=== PATIENT | female | born 1985 | race American Indian/Alaskan Native ===

== ENCOUNTER 2016-10-07 10:34 | Inpatient (IN) | payer MEDICAID, SELFPAY ==
[2016-10-07] MEDS ORDERED: Sodium Chloride 0.9% 10 ML Syringe FLUSH PRN (10:36)
--- NOTE | 2016-10-07 10:36 | EDM.PDOC ---
ED HPI GENERAL MEDICAL PROBLEM - General Chief Complaint: Diabetic Complaint Stated Complaint: IN BY AMBULANCE Time Seen by Provider: 10/07/16 10:35 Source of Information: Reports: Patient, EMS, Old Records, RN, RN Notes Reviewed History Limitations: Reports: No Limitations - History of Present Illness INITIAL COMMENTS - FREE TEXT/NARRATIVE: Arrives from home by ambulance with c/o nausea and vomiting that began after pt drank too much alcohol on Friday, October 04. Denies fever or chills. Pt states she got weak yesterday and didn't get up to take her medications. Pt states she has DM Type 2 since age 17yrs, initially treated with "pills", then switched to insulin several years ago. Onset Date: 10/04/16 Duration: Constant Location: Reports: Abdomen Quality: Reports: Other (cramping) Severity: Severe Improves with: Reports: None Worsens with: Reports: None Associated Symptoms: Reports: No Other Symptoms - Related Data Allergies Allergy/AdvReac Type Severity Reaction Status Date / Time Penicillins Allergy Intermediate Rash Verified 05/26/13 18:19 Home Meds: Home Meds Insulin Aspart [NovoLOG] 30 unit SUBCUT TIDAC 10/07/16 [History] Insulin Detemir [Levemir] 20 unit SUBCUT QAM 10/07/16 [History] Past Medical History Endocrine/Metabolic History: Reports: Diabetes, Type II, IDDM Social & Family History - Family History Family Medical History: Noncontributory - Tobacco Use Years of Tobacco use: 10 Used Tobacco, but Quit: No Second Hand Smoke Exposure: No - Alcohol Use Days Per Week of Alcohol Use: 0 - Recreational Drug Use Recreational Drug Use: No - Living Situation & Occupation Living situation: Reports: with Significant Other Occupation: Unemployed ED ROS GENERAL - Review of Systems Review Of Systems: ROS reveals no pertinent complaints other than HPI. ED EXAM GENERAL NO PERIP PULSE - Physical Exam Exam: See Below Exam Limited By: No Limitations General Appearance: Alert, WD/WN, No Apparent Distress Eye Exam: Bilateral Eye: Normal Inspection Ears: Normal External Exam, Hearing Grossly Normal Nose: Normal Inspection, Normal Mucosa, No Blood Throat/Mouth: Normal Lips, Normal Oropharynx, Normal Voice, No Airway Compromise , Other (dry oral membranes) Head: Atraumatic, Normocephalic Neck: Normal Inspection, Supple, Non-Tender, Full Range of Motion Respiratory/Chest: No Respiratory Distress, Lungs Clear, Normal Breath Sounds, No Accessory Muscle Use, Chest Non-Tender Cardiovascular: Normal Peripheral Pulses, Regular Rate, Rhythm, No Edema, No Gallop, No JVD, No Murmur, No Rub, Tachycardia GI/Abdominal: Normal Bowel Sounds, Soft, Non-Tender, No Distention, No Abnormal Bruit, No Mass, Pelvis Stable (Female) Exam: Deferred Rectal (Female) Exam: Deferred Back Exam: Normal Inspection, Full Range of Motion. No: CVA Tenderness (L), CVA Tenderness (R) Extremities: Normal Inspection, Normal Range of Motion, Non-Tender, Normal Capillary Refill, No Pedal Edema Neurological: Alert, Oriented, CN II-XII Intact, Normal Cognition, Normal Gait, No Motor/Sensory Deficits Psychiatric: Normal Affect, Normal Mood Skin Exam: Warm, Dry, Intact, Normal Color, No Rash EKG INTERPRETATION EKG Date: 10/07/16 Time: 11:34 Rhythm: Other (Sinus tach) Rate (Beats/Min): 109 [place]: Normal P-Wave: Present QRS: Normal ST-T: Other (borderline T-wave abnormalities) QT: Normal Comparison: NA - No Prior EKG Course - Vital Signs Last Recorded V/S: Last Vital Signs Temp 36.6 C 10/07/16 10:45 Pulse 111 H 10/07/16 10:45 Resp 16 10/07/16 10:45 BP 109/81 10/07/16 10:45 Pulse Ox 98 10/07/16 10:45 - Orders/Labs/Meds Orders: Active Orders 24 hr Category Date Time Status Blood Glucose Check, Bedside [] ONETIME Care 10/07/16 10:36 Active EKG 12 Lead [EKG Documentation Completion] [RC] STAT Care 10/07/16 11:24 Active Peripheral IV Care [RC] . DIRECTED Care 10/07/16 10:36 Active Chest 1V Frontal [CR] Stat Exams 10/07/16 11:23 Ordered CULTURE BLOOD [BC] Stat Lab 10/07/16 10:46 Received CULTURE BLOOD [BC] Stat Lab 10/07/16 10:50 Received DRUG SCREEN URINE BIORAD [URCHEM] Stat Lab 10/07/16 10:36 Uncollected HCG QUALITATIVE,URINE [URCHEM] Stat Lab 10/07/16 10:36 Uncollected UA W/MICROSCOPIC [URIN] Stat Lab 10/07/16 10:36 Uncollected Sodium Chloride 0.9% [Saline Flush] Med 10/07/16 10:36 Active 10 ml FLUSH ASDIRECTED PRN Blood Culture x2 Reflex Set [OM.PC] Stat Ot 10/07/16 10:36 Ordered Peripheral IV Insertion Adult [OM.PC] Stat Ot 10/07/16 10:36 Ordered Medication Orders Sodium Chloride (Saline Flush) 10 ml FLUSH ASDIRECTED PRN PRN Reason: Keep Vein Open Labs: Laboratory Tests 10/07/16 10/07/16 10/07/16 Range/Units 10:36 10:46 10:46 WBC 12.7 H (5.0-10.0) 10^3/uL RBC 5.25 (4.2-5.4) 10^6/uL Hgb 14.9 (12.0-16.0) g/dL Hct 44.8 (37.0-47.0) % MCV 85.3 (80-100) fL MCH 28.4 (27.0-34.0) pg MCHC 33.3 (33.0-35.0) g/dL Plt Count 287 (150-450) 10^3/uL Neut % (Auto) 80.0 H (42.2-75.2) % Lymph % (Auto) 13.8 L (20.5-50.1) % [place] % (Auto) 6.1 (2-8) % Eos % (Auto) 0.0 L (1.0-3.0) % Baso % (Auto) 0.1 (0.0-1.0) % ABG pH (7.35-7.45) ABG pCO2 (35-45) mmHg ABG pO2 (70-100) mmHg ABG HCO3 (22-26) mmol/L ABG O2 Saturation (95-100) % ABG Base Excess ((-2)-(+3)) mmol/L O2 Delivery Device Sodium 132 L (135-145) mmol/L Potassium 4.0 (3.6-5.0) mmol/L Chloride 90 L (101-111) mmol/L Carbon Dioxide 15.0 L (21.0-31.0) mmol/L Anion Gap 31.0 BUN 27 H (7-18) mg/dL Creatinine 1.3 (0.6-1.3) mg/dL Est Cr Clr Drug Dosing 54.64 mL/min Estimated GFR (MDRD) 48 BUN/Creatinine Ratio 20.76 Glucose 455 H* (74-105) mg/dL POC Glucose 477 H* (70-105) mg/dl Lactic Acid (0.5-2.2) mmol/L Calcium 9.8 (8.4-10.2) mg/dl Total Bilirubin 1.7 H (0.2-1.0) mg/dL AST 24 (10-42) IU/L ALT 21 (10-60) IU/L Alkaline Phosphatase 128 H (42-121) IU/L Troponin I < 0.02 (0.00-0.02) ng/ml Total Protein 9.2 H (6.7-8.2) g/dl Albumin 4.5 (3.2-5.5) g/dl Globulin 4.7 Albumin/Globulin Ratio 0.96 Amylase 51 (28-100) U/L Lipase 45 (22-51) U/L Ethyl Alcohol < 5 mg/dL Ketones Positive 10/07/16 10/07/16 10/07/16 Range/Units 10:46 11:21 11:40 WBC (5.0-10.0) 10^3/uL RBC (4.2-5.4) 10^6/uL Hgb (12.0-16.0) g/dL Hct (37.0-47.0) % MCV (80-100) fL MCH (27.0-34.0) pg MCHC (33.0-35.0) g/dL Plt Count (150-450) 10^3/uL Neut % (Auto) (42.2-75.2) % Lymph % (Auto) (20.5-50.1) % [place] % (Auto) (2-8) % Eos % (Auto) (1.0-3.0) % Baso % (Auto) (0.0-1.0) % ABG pH 7.36 (7.35-7.45) ABG pCO2 24 L (35-45) mmHg ABG pO2 94 (70-100) mmHg ABG HCO3 13.4 L (22-26) mmol/L ABG O2 Saturation 96 (95-100) % ABG Base Excess -10 L ((-2)-(+3)) mmol/L O2 Delivery Device Room air Sodium (135-145) mmol/L Potassium (3.6-5.0) mmol/L Chloride (101-111) mmol/L Carbon Dioxide (21.0-31.0) mmol/L Anion Gap BUN (7-18) mg/dL Creatinine (0.6-1.3) mg/dL Est Cr Clr Drug Dosing mL/min Estimated GFR (MDRD) BUN/Creatinine Ratio Glucose (74-105) mg/dL POC Glucose 418 H* (70-105) mg/dl Lactic Acid 2.7 H (0.5-2.2) mmol/L Calcium (8.4-10.2) mg/dl Total Bilirubin (0.2-1.0) mg/dL AST (10-42) IU/L ALT (10-60) IU/L Alkaline Phosphatase (42-121) IU/L Troponin I (0.00-0.02) ng/ml Total Protein (6.7-8.2) g/dl Albumin (3.2-5.5) g/dl Globulin Albumin/Globulin Ratio Amylase (28-100) U/L Lipase (22-51) U/L Ethyl Alcohol mg/dL Ketones Meds: Medications Generic Name Dose Route Start Last Admin Trade Name Freq PRN Reason Stop Dose Admin Sodium Chloride 10 ml 10/07/16 10:36 Saline Flush FLUSH ASDIRECTED PRN Keep Vein Open Discontinued Medications Generic Name Dose Route Start Last Admin Trade Name Freq PRN Reason Stop Dose Admin Sodium Chloride 1,000 mls @ 999 mls/hr 10/07/16 10:37 10/07/16 11:02 Normal Saline IV 10/07/16 11:37 999 mls/hr .BOLUS ONE Administration Insulin Human Regular 12 unit 10/07/16 10:58 10/07/16 11:09 Humulin R SUBCUT 10/07/16 10:59 12 units ONETIME ONE Administration Protocol Insulin Human Regular 7 unit 10/07/16 11:25 10/07/16 11:41 Humulin R IV 10/07/16 11:26 7 units ONETIME ONE Administration Protocol Ondansetron HCl 4 mg 10/07/16 10:37 10/07/16 11:02 Zofran IV 10/07/16 10:38 4 mg ONETIME ONE Administration - Radiology Interpretation Free Text/Narrative:: CXR: no acute process. Departure - Departure Time of Disposition: 11:38 (admitted to Dr. Ji) Disposition: Admitted As Inpatient 67 Condition: Critical Clinical Impression: DKA (diabetic ketoacidosis) Qualifiers: Diabetes mellitus type: type 2 Diabetes mellitus complication detail: without coma Qualified Code(s): E13.10 - Other specified diabetes mellitus with ketoacidosis without coma - Discharge Information Forms: ED Department Discharge - My Orders Last 24 Hours: My Active Orders 10/07/16 10:36 Blood Glucose Check, Bedside [RC] ONETIME Peripheral IV Care [RC] . DIRECTED DRUG SCREEN URINE BIORAD [URCHEM] Stat HCG QUALITATIVE,URINE [URCHEM] Stat UA W/MICROSCOPIC [URIN] Stat Sodium Chloride 0.9% [Saline Flush] 10 ml FLUSH ASDIRECTED PRN Blood Culture x2 Reflex Set [OM.PC] Stat Peripheral IV Insertion Adult [OM.PC] Stat 10/07/16 10:46 CULTURE BLOOD [BC] Stat 10/07/16 10:50 CULTURE BLOOD [BC] Stat 10/07/16 11:23 Chest 1V Frontal [CR] Stat 10/07/16 11:24 EKG 12 Lead [EKG Documentation Completion] [RC] STAT - Assessment/Plan Last 24 Hours: My Active Orders 10/07/16 10:36 Blood Glucose Check, Bedside [RC] ONETIME Peripheral IV Care [RC] . DIRECTED DRUG SCREEN URINE BIORAD [URCHEM] Stat HCG QUALITATIVE,URINE [URCHEM] Stat UA W/MICROSCOPIC [URIN] Stat Sodium Chloride 0.9% [Saline Flush] 10 ml FLUSH ASDIRECTED PRN Blood Culture x2 Reflex Set [OM.PC] Stat Peripheral IV Insertion Adult [OM.PC] Stat 10/07/16 10:46 CULTURE BLOOD [BC] Stat 10/07/16 10:50 CULTURE BLOOD [BC] Stat 10/07/16 11:23 Chest 1V Frontal [CR] Stat 10/07/16 11:24 EKG 12 Lead [EKG Documentation Completion] [RC] STAT
[2016-10-07] MEDS ORDERED: Sodium Chloride 0.9% 1,000 ML IV ONE (10:37)
[2016-10-07] MEDS ORDERED: Ondansetron 4 MG/2 ML SDV IV ONE (10:37)
[2016-10-07] MEDS ORDERED: Insulin Regular, Human 100 Units/ML 3 ML Vial SUBCUT ONE (10:58)
[2016-10-07 11:17] LABS: CHLORIDE,CL 90 mmol/L (101-111); SODIUM,NA 132 mmol/L (135-145)
[2016-10-07] MEDS ORDERED: Insulin Regular, Human 100 Units/ML 3 ML Vial IV ONE ×2 (11:25→12:54)
[2016-10-07 11:50] LABS: BASE EXCESS ARTERIAL -10 mmol/L ((-2)-(+3)); BICARBONATE,ARTERIAL 13.4 mmol/L (22-26); O2 DELIVERY DEVICE ROOM AIR; O2 SATURATION ARTERIAL 96 % (95-100); PCO2 ARTERIAL 24 mmHg (35-45); PO2 ARTERIAL 94 mmHg (70-100)
--- NOTE | 2016-10-07 12:15 | CR ---
Clinical history: 31-year-old female diabetic with coughing and vomiting. Interpretation: Negative chest radiograph (upright AP portable). Normal cardiac silhouette without alveolar edema or dependent effusion. No lobar pneumonia, atelectasis or collapse.
[2016-10-07] MEDS ORDERED: Ondansetron 4 MG/2 ML SDV IVPUSH PRN (12:56)
[2016-10-07] MEDS ORDERED: Promethazine 25 MG/ML SDV IM PRN (12:56)
[2016-10-07] MEDS ORDERED: Zolpidem 5 MG Tab PO PRN (12:56)
[2016-10-07] MEDS ORDERED: Acetaminophen 325 MG Tab PO PRN (12:56)
[2016-10-07] MEDS ORDERED: Ondansetron 4 MG Tab.DIS PO PRN (12:56)
[2016-10-07] MEDS ORDERED: Docusate Sodium 100 MG Cap PO PRN (12:56)
[2016-10-07] MEDS ORDERED: NS + KCl 20mEq/L 1,000 ML IV SCH (13:00)
--- NOTE | 2016-10-07 13:40 | PCM.HP ---
H&P History of Present Illness - General Date of Service: 10/07/16 Admit Problem/Dx: Admission Diagnosis/Problem Admission Diagnosis/Problem Ketoacidosis in insulin-dependent diabetes mellitus without coma Source of Information: Patient, Family, Other (er md) - History of Present Illness Initial Comments - Free Text/Narative: The patient is a 31-year-old lady who has a history of diabetes. She was told that she has type 2 diabetes at the age of 17. She has been initially on oral medication but then was switched to insulin. She has a history of prior DKA admission 2 years ago. She usually does not drink at all but on Friday drink lot of hard liquor. Subsequently developed nausea vomiting which has been going on since. She was not checking her blood sugars, was not using an insulin. There is no associated abdominal pain, no diarrhea, no chest pain, no shortness of breath. No urinary burning. - Related Data Allergies/Adverse Reactions: Allergies Allergy/AdvReac Type Severity Reaction Status Date / Time No Known Allergies Allergy Verified 10/07/16 13:40 Home Medications: Home Meds Insulin Aspart [NovoLOG] 30 unit SUBCUT TIDAC 10/07/16 [History] Insulin Detemir [Levemir] 20 unit SUBCUT QAM 10/07/16 [History] Past Medical History HEENT History: Reports: Impaired Vision Endocrine/Metabolic History: Reports: Diabetes, Type II, IDDM - Past Surgical History GI Surgical History: Reports: Appendectomy Female Surgical History: Reports: Section Social & Family History - Family History Family Medical History: Noncontributory - Tobacco Use Smoking Status *Q: Never Smoker Years of Tobacco use: 10 Used Tobacco, but Quit: No Second Hand Smoke Exposure: No - Caffeine Use Caffeine Use: Reports: Coffee, Soda - Alcohol Use Days Per Week of Alcohol Use: 0 - Recreational Drug Use Recreational Drug Use: No - Living Situation & Occupation Living situation: Reports: with Significant Other Occupation: Unemployed H&P Review of Systems - Review of Systems: Review Of Systems: See Below General: Reports: Malaise, Weakness, Fatigue. Denies: Fever, Chills Pulmonary: Denies: Shortness of Breath, Wheezing Cardiovascular: Denies: Chest Pain, Edema Gastrointestinal: Reports: Nausea, Vomiting. Denies: Abdominal Pain Psychiatric: Denies: Confusion Exam - Exam Exam: See Below - Vital Signs Vital Signs: Last Vital Signs Temp 36.6 C 10/07/16 10:45 Pulse 111 H 10/07/16 10:45 Resp 16 10/07/16 10:45 BP 109/81 10/07/16 10:45 Pulse Ox 98 10/07/16 10:45 Weight: 70.307 kg - Exam General: Alert, Oriented Neck: Supple Lungs: Clear to Auscultation, Normal Respiratory Effort Cardiovascular: Regular Rate, Regular Rhythm GI/Abdominal Exam: Normal Bowel Sounds, Soft, Non-Tender Extremities: No Pedal Edema - Patient Data Lab Results Last 24 hrs: Laboratory Results - last 24 hr 10/07/16 10/07/16 10/07/16 Range/Units 12:59 13:20 13:20 POC Glucose 302 H (70-105) mg/dl Urine HCG, Qual Negative Urine Opiates Screen Negative (NEGATIVE) Ur Oxycodone Screen Negative (NEGATIVE) Urine Methadone Screen Negative (NEGATIVE) Ur Barbiturates Screen Negative (NEGATIVE) U Tricyclic Antidepress Negative (NEGATIVE) Ur Phencyclidine Scrn Negative (NEGATIVE) Ur Amphetamine Screen Negative (NEGATIVE) U Methamphetamines Scrn Negative (NEGATIVE) Urine MDMA Screen Negative (NEGATIVE) U Benzodiazepines Scrn Negative (NEGATIVE) Urine Cocaine Screen Negative (NEGATIVE) U Marijuana (THC) Screen Positive H (NEGATIVE) Result Diagrams: 10/07/16 10:46 10/07/16 10:46 EKG INTERPRETATION EKG Date: 10/07/16 Rhythm: NSR *Q Meaningful Use (ADM) - VTE *Q VTE Criteria *Q: - Stroke *Q Stroke Criteria *Q: - AMI *Q AMI Criteria *Q: - Problem List (1) DKA (diabetic ketoacidosis) SNOMED Code(s): 211930637, [id number] ICD Code: E13.10 - OTH DIABETES MELLITUS WITH KETOACIDOSIS WITHOUT COMA Status: Acute Current Visit: Yes Qualifiers: Diabetes mellitus type: type 2 Diabetes mellitus complication detail: without coma Qualified Code(s): E13.10 - Other specified diabetes mellitus with ketoacidosis without coma Problem List Initiated/Reviewed/Updated: Yes Orders Last 24hrs: Active Orders 24 hr Category Date Time Status Multivitamins,Therapeutic [Thera] Med 10/07/16 21:00 Ordered 1 each PO BEDTIME NS + KCl 20mEq/L [Normal Saline with 20 mEq KCl] 1,000 Med 10/07/16 13:00 Active ml IV ASDIRECTED Medication Orders Acetaminophen (Tylenol) 650 mg PO Q4H PRN PRN Reason: Pain (Mild 1-3)/fever Docusate Sodium (Colace) 100 mg PO BID PRN PRN Reason: Constipation Heparin Sodium (Porcine) (Heparin Sodium) 5,000 units SUBCUT Q8HR DARI Potassium Chloride/Sodium Chloride (Normal Saline With 20 Meq Kcl) 1,000 mls @ 150 mls/hr IV ASDIRECTED DARI Multivitamins (Thera) 1 each PO BEDTIME DARI Ondansetron HCl (Zofran Odt) 4 mg PO Q4H PRN PRN Reason: nausea, able to take PO Ondansetron HCl (Zofran) 4 mg IVPUSH Q6H PRN PRN Reason: Nausea/Vomiting Pantoprazole Sodium (Protonix Iv) 40 mg IVPUSH DAILY [facility] Promethazine HCl (Phenergan) 6.25 mg IM Q6H PRN PRN Reason: Nausea/Vomiting Sodium Chloride (Saline Flush) 10 ml FLUSH ASDIRECTED PRN PRN Reason: Keep Vein Open Zolpidem Tartrate (Ambien) 5 mg PO BEDTIME PRN PRN Reason: Sleep Assessment/Plan Comment:: Nausea vomiting likely due to alcohol related GASTRITIS and DKA Will hydrate the patient, use antiemetics as needed Start proton pump inhibitor DKA The patient was not using insulin, had nausea vomiting Will give the patient IV fluids Insulin drip Follow electrolytes and replace them as needed Diabetes Likely type 1 diabetes Discussed importance of management and baseline insulin need Leukocytosis Likely reactive due to DKA DVT prophylaxis will be with subcutaneous heparin Discussed with the ER physician
[2016-10-07] MEDS: Heparin Sodium 5,000 Units/ML Vial SUBCUT SCH ×2 (14:46→21:30)
[2016-10-07] MEDS ORDERED: Insulin Regular, Human 100 Units/ML 3 ML Vial IV SCH (15:45)
[2016-10-07] MEDS: Dextrose 5%-0.9% NaCl with KCl 1,000 ML IV SCH ×2 (16:26→23:23)
[2016-10-07 17:23] LABS: CHLORIDE,CL 99 mmol/L (101-111); SODIUM,NA 134 mmol/L (135-145)
[2016-10-07] MEDS: Phosphorus #1 250 MG Tab PO SCH ×2 (18:44→21:29)
[2016-10-07] MEDS: Multivitamins,Therapeutic Tab PO SCH (21:28)
[2016-10-08] MEDS: Phosphorus #1 250 MG Tab PO SCH ×5 (02:38→22:44)
[2016-10-08] MEDS: Heparin Sodium 5,000 Units/ML Vial SUBCUT SCH ×3 (06:14→22:45)
[2016-10-08 06:50] LABS: CHLORIDE,CL 106 mmol/L (101-111); SODIUM,NA 139 mmol/L (135-145)
[2016-10-08] MEDS: Pantoprazole 40 MG Vial IVPUSH SCH (09:53)
[2016-10-08] MEDS ORDERED: Insulin NPH/Insulin Regular,Human 70-30 100 Units/ML 10 ML Vial SUBCUT ONE (11:11)
--- NOTE | 2016-10-08 11:49 | PCM.PN ---
- General Info Date of Service: 10/08/16 Admission Dx/Problem (Free Text): Admission Diagnosis/Problem Admission Diagnosis/Problem Ketoacidosis in insulin-dependent diabetes mellitus without coma Subjective Update: feeling better only mild nausea no fever no diarrhea mild diffuse abdominal pain Functional Status: Reports: Pain Controlled - Review of Systems General: Reports: Malaise. Denies: Fever Pulmonary: Denies: Shortness of Breath Cardiovascular: Denies: Chest Pain Gastrointestinal: Reports: Abdominal Pain (mild, diffuse). Denies: Diarrhea, Nausea, Vomiting - Patient Data Vitals - Most Recent: Last Vital Signs Temp 36.6 C 10/08/16 11:00 Pulse 77 10/08/16 11:00 Resp 20 10/08/16 11:00 BP 101/74 10/08/16 11:00 Pulse Ox 100 10/08/16 11:00 Weight - Most Recent: 70.307 kg I&O - Last 24 Hours: Intake & Output 10/07/16 10/08/16 10/08/16 22:59 06:59 14:59 Intake Total 340 2890 Output Total 450 Balance 340 2440 Lab Results Last 24 Hours: Laboratory Results - last 24 hr 10/07/16 10/07/16 10/07/16 Range/Units 12:59 13:20 13:20 WBC (5.0-10.0) 10^3/uL RBC (4.2-5.4) 10^6/uL Hgb (12.0-16.0) g/dL Hct (37.0-47.0) % MCV (80-100) fL MCH (27.0-34.0) pg MCHC (33.0-35.0) g/dL Plt Count (150-450) 10^3/uL Neut % (Auto) (42.2-75.2) % Lymph % (Auto) (20.5-50.1) % [place] % (Auto) (2-8) % Eos % (Auto) (1.0-3.0) % Baso % (Auto) (0.0-1.0) % Sodium (135-145) mmol/L Potassium (3.6-5.0) mmol/L Chloride (101-111) mmol/L Carbon Dioxide (21.0-31.0) mmol/L Anion Gap BUN (7-18) mg/dL Creatinine (0.6-1.3) mg/dL Est Cr Clr Drug Dosing mL/min Estimated GFR (MDRD) Glucose (74-105) mg/dL POC Glucose 302 H (70-105) mg/dl Calcium (8.4-10.2) mg/dl Phosphorus (2.5-4.6) mg/dL Magnesium (1.8-2.5) mg/dL Urine Color (YELLOW) Urine Appearance (CLEAR) Urine pH (5.0-9.0) Ur Specific [place] (1.005-1.030) Urine Protein (NEGATIVE) Urine Glucose (UA) (NEGATIVE) Urine Ketones (NEGATIVE) Urine Occult Blood (NEGATIVE) Urine Nitrite (NEGATIVE) Urine Bilirubin (NEGATIVE) Urine Urobilinogen (0.2-1.0) mg/dL Ur Leukocyte Esterase (NEGATIVE) Urine RBC /HPF Urine WBC (0-5/HPF) /HPF Ur Epithelial Cells /HPF Urine Bacteria (0-FEW/HPF) /HPF Hyaline Casts /LPF Fine Granular Casts (0/LPF) /LPF Urine Mucus /LPF Urine HCG, Qual Negative Urine Opiates Screen Negative (NEGATIVE) Ur Oxycodone Screen Negative (NEGATIVE) Urine Methadone Screen Negative (NEGATIVE) Ur Barbiturates Screen Negative (NEGATIVE) U Tricyclic Antidepress Negative (NEGATIVE) Ur Phencyclidine Scrn Negative (NEGATIVE) Ur Amphetamine Screen Negative (NEGATIVE) U Methamphetamines Scrn Negative (NEGATIVE) Urine MDMA Screen Negative (NEGATIVE) U Benzodiazepines Scrn Negative (NEGATIVE) Urine Cocaine Screen Negative (NEGATIVE) U Marijuana (THC) Screen Positive H (NEGATIVE) 10/07/16 10/07/16 10/07/16 Range/Units 13:20 13:49 15:08 WBC (5.0-10.0) 10^3/uL RBC (4.2-5.4) 10^6/uL Hgb (12.0-16.0) g/dL Hct (37.0-47.0) % MCV (80-100) fL MCH (27.0-34.0) pg MCHC (33.0-35.0) g/dL Plt Count (150-450) 10^3/uL Neut % (Auto) (42.2-75.2) % Lymph % (Auto) (20.5-50.1) % [place] % (Auto) (2-8) % Eos % (Auto) (1.0-3.0) % Baso % (Auto) (0.0-1.0) % Sodium (135-145) mmol/L Potassium (3.6-5.0) mmol/L Chloride (101-111) mmol/L Carbon Dioxide (21.0-31.0) mmol/L Anion Gap BUN (7-18) mg/dL Creatinine (0.6-1.3) mg/dL Est Cr Clr Drug Dosing mL/min Estimated GFR (MDRD) Glucose (74-105) mg/dL POC Glucose 277 H 253 H (70-105) mg/dl Calcium (8.4-10.2) mg/dl Phosphorus (2.5-4.6) mg/dL Magnesium (1.8-2.5) mg/dL Urine Color Yellow (YELLOW) Urine Appearance Slightly cloudy (CLEAR) Urine pH 5.5 (5.0-9.0) Ur Specific [place] 1.020 (1.005-1.030) Urine Protein 100 H (NEGATIVE) Urine Glucose (UA) 500 H (NEGATIVE) Urine Ketones >=160 H (NEGATIVE) Urine Occult Blood Small H (NEGATIVE) Urine Nitrite Negative (NEGATIVE) Urine Bilirubin Moderate H (NEGATIVE) Urine Urobilinogen 0.2 (0.2-1.0) mg/dL Ur Leukocyte Esterase Negative (NEGATIVE) Urine RBC 5-10 H /HPF Urine WBC 0-5 (0-5/HPF) /HPF Ur Epithelial Cells Many H /HPF Urine Bacteria Moderate H (0-FEW/HPF) /HPF Hyaline Casts See note /LPF Fine Granular Casts See note (0/LPF) /LPF Urine Mucus Few H /LPF Urine HCG, Qual Urine Opiates Screen (NEGATIVE) Ur Oxycodone Screen (NEGATIVE) Urine Methadone Screen (NEGATIVE) Ur Barbiturates Screen (NEGATIVE) U Tricyclic Antidepress (NEGATIVE) Ur Phencyclidine Scrn (NEGATIVE) Ur Amphetamine Screen (NEGATIVE) U Methamphetamines Scrn (NEGATIVE) Urine MDMA Screen (NEGATIVE) U Benzodiazepines Scrn (NEGATIVE) Urine Cocaine Screen (NEGATIVE) U Marijuana (THC) Screen (NEGATIVE) 10/07/16 10/07/16 10/07/16 Range/Units 16:07 16:25 17:03 WBC (5.0-10.0) 10^3/uL RBC (4.2-5.4) 10^6/uL Hgb (12.0-16.0) g/dL Hct (37.0-47.0) % MCV (80-100) fL MCH (27.0-34.0) pg MCHC (33.0-35.0) g/dL Plt Count (150-450) 10^3/uL Neut % (Auto) (42.2-75.2) % Lymph % (Auto) (20.5-50.1) % [place] % (Auto) (2-8) % Eos % (Auto) (1.0-3.0) % Baso % (Auto) (0.0-1.0) % Sodium 134 L (135-145) mmol/L Potassium 3.6 (3.6-5.0) mmol/L Chloride 99 L (101-111) mmol/L Carbon Dioxide 22.0 (21.0-31.0) mmol/L Anion Gap 16.6 BUN 28 H (7-18) mg/dL Creatinine 0.8 (0.6-1.3) mg/dL Est Cr Clr Drug Dosing 88.79 mL/min Estimated GFR (MDRD) > 60 Glucose 270 H (74-105) mg/dL POC Glucose 232 H 224 H (70-105) mg/dl Calcium 8.6 (8.4-10.2) mg/dl Phosphorus 1.5 L (2.5-4.6) mg/dL Magnesium 1.7 L (1.8-2.5) mg/dL Urine Color (YELLOW) Urine Appearance (CLEAR) Urine pH (5.0-9.0) Ur Specific [place] (1.005-1.030) Urine Protein (NEGATIVE) Urine Glucose (UA) (NEGATIVE) Urine Ketones (NEGATIVE) Urine Occult Blood (NEGATIVE) Urine Nitrite (NEGATIVE) Urine Bilirubin (NEGATIVE) Urine Urobilinogen (0.2-1.0) mg/dL Ur Leukocyte Esterase (NEGATIVE) Urine RBC /HPF Urine WBC (0-5/HPF) /HPF Ur Epithelial Cells /HPF Urine Bacteria (0-FEW/HPF) /HPF Hyaline Casts /LPF Fine Granular Casts (0/LPF) /LPF Urine Mucus /LPF Urine HCG, Qual Urine Opiates Screen (NEGATIVE) Ur Oxycodone Screen (NEGATIVE) Urine Methadone Screen (NEGATIVE) Ur Barbiturates Screen (NEGATIVE) U Tricyclic Antidepress (NEGATIVE) Ur Phencyclidine Scrn (NEGATIVE) Ur Amphetamine Screen (NEGATIVE) U Methamphetamines Scrn (NEGATIVE) Urine MDMA Screen (NEGATIVE) U Benzodiazepines Scrn (NEGATIVE) Urine Cocaine Screen (NEGATIVE) U Marijuana (THC) Screen (NEGATIVE) 10/07/16 10/07/16 10/07/16 Range/Units 17:29 18:35 19:45 WBC (5.0-10.0) 10^3/uL RBC (4.2-5.4) 10^6/uL Hgb (12.0-16.0) g/dL Hct (37.0-47.0) % MCV (80-100) fL MCH (27.0-34.0) pg MCHC (33.0-35.0) g/dL Plt Count (150-450) 10^3/uL Neut % (Auto) (42.2-75.2) % Lymph % (Auto) (20.5-50.1) % [place] % (Auto) (2-8) % Eos % (Auto) (1.0-3.0) % Baso % (Auto) (0.0-1.0) % Sodium (135-145) mmol/L Potassium (3.6-5.0) mmol/L Chloride (101-111) mmol/L Carbon Dioxide (21.0-31.0) mmol/L Anion Gap BUN (7-18) mg/dL Creatinine (0.6-1.3) mg/dL Est Cr Clr Drug Dosing mL/min Estimated GFR (MDRD) Glucose (74-105) mg/dL POC Glucose 244 H 266 H 288 H (70-105) mg/dl Calcium (8.4-10.2) mg/dl Phosphorus (2.5-4.6) mg/dL Magnesium (1.8-2.5) mg/dL Urine Color (YELLOW) Urine Appearance (CLEAR) Urine pH (5.0-9.0) Ur Specific [place] (1.005-1.030) Urine Protein (NEGATIVE) Urine Glucose (UA) (NEGATIVE) Urine Ketones (NEGATIVE) Urine Occult Blood (NEGATIVE) Urine Nitrite (NEGATIVE) Urine Bilirubin (NEGATIVE) Urine Urobilinogen (0.2-1.0) mg/dL Ur Leukocyte Esterase (NEGATIVE) Urine RBC /HPF Urine WBC (0-5/HPF) /HPF Ur Epithelial Cells /HPF Urine Bacteria (0-FEW/HPF) /HPF Hyaline Casts /LPF Fine Granular Casts (0/LPF) /LPF Urine Mucus /LPF Urine HCG, Qual Urine Opiates Screen (NEGATIVE) Ur Oxycodone Screen (NEGATIVE) Urine Methadone Screen (NEGATIVE) Ur Barbiturates Screen (NEGATIVE) U Tricyclic Antidepress (NEGATIVE) Ur Phencyclidine Scrn (NEGATIVE) Ur Amphetamine Screen (NEGATIVE) U Methamphetamines Scrn (NEGATIVE) Urine MDMA Screen (NEGATIVE) U Benzodiazepines Scrn (NEGATIVE) Urine Cocaine Screen (NEGATIVE) U Marijuana (THC) Screen (NEGATIVE) 10/07/16 10/07/16 10/07/16 Range/Units 20:42 21:33 22:49 WBC (5.0-10.0) 10^3/uL RBC (4.2-5.4) 10^6/uL Hgb (12.0-16.0) g/dL Hct (37.0-47.0) % MCV (80-100) fL MCH (27.0-34.0) pg MCHC (33.0-35.0) g/dL Plt Count (150-450) 10^3/uL Neut % (Auto) (42.2-75.2) % Lymph % (Auto) (20.5-50.1) % [place] % (Auto) (2-8) % Eos % (Auto) (1.0-3.0) % Baso % (Auto) (0.0-1.0) % Sodium (135-145) mmol/L Potassium (3.6-5.0) mmol/L Chloride (101-111) mmol/L Carbon Dioxide (21.0-31.0) mmol/L Anion Gap BUN (7-18) mg/dL Creatinine (0.6-1.3) mg/dL Est Cr Clr Drug Dosing mL/min Estimated GFR (MDRD) Glucose (74-105) mg/dL POC Glucose 307 H 262 H 251 H (70-105) mg/dl Calcium (8.4-10.2) mg/dl Phosphorus (2.5-4.6) mg/dL Magnesium (1.8-2.5) mg/dL Urine Color (YELLOW) Urine Appearance (CLEAR) Urine pH (5.0-9.0) Ur Specific [place] (1.005-1.030) Urine Protein (NEGATIVE) Urine Glucose (UA) (NEGATIVE) Urine Ketones (NEGATIVE) Urine Occult Blood (NEGATIVE) Urine Nitrite (NEGATIVE) Urine Bilirubin (NEGATIVE) Urine Urobilinogen (0.2-1.0) mg/dL Ur Leukocyte Esterase (NEGATIVE) Urine RBC /HPF Urine WBC (0-5/HPF) /HPF Ur Epithelial Cells /HPF Urine Bacteria (0-FEW/HPF) /HPF Hyaline Casts /LPF Fine Granular Casts (0/LPF) /LPF Urine Mucus /LPF Urine HCG, Qual Urine Opiates Screen (NEGATIVE) Ur Oxycodone Screen (NEGATIVE) Urine Methadone Screen (NEGATIVE) Ur Barbiturates Screen (NEGATIVE) U Tricyclic Antidepress (NEGATIVE) Ur Phencyclidine Scrn (NEGATIVE) Ur Amphetamine Screen (NEGATIVE) U Methamphetamines Scrn (NEGATIVE) Urine MDMA Screen (NEGATIVE) U Benzodiazepines Scrn (NEGATIVE) Urine Cocaine Screen (NEGATIVE) U Marijuana (THC) Screen (NEGATIVE) 10/07/16 10/08/16 10/08/16 Range/Units 23:33 00:28 01:32 WBC (5.0-10.0) 10^3/uL RBC (4.2-5.4) 10^6/uL Hgb (12.0-16.0) g/dL Hct (37.0-47.0) % MCV (80-100) fL MCH (27.0-34.0) pg MCHC (33.0-35.0) g/dL Plt Count (150-450) 10^3/uL Neut % (Auto) (42.2-75.2) % Lymph % (Auto) (20.5-50.1) % [place] % (Auto) (2-8) % Eos % (Auto) (1.0-3.0) % Baso % (Auto) (0.0-1.0) % Sodium (135-145) mmol/L Potassium (3.6-5.0) mmol/L Chloride (101-111) mmol/L Carbon Dioxide (21.0-31.0) mmol/L Anion Gap BUN (7-18) mg/dL Creatinine (0.6-1.3) mg/dL Est Cr Clr Drug Dosing mL/min Estimated GFR (MDRD) Glucose (74-105) mg/dL POC Glucose 243 H 261 H 244 H (70-105) mg/dl Calcium (8.4-10.2) mg/dl Phosphorus (2.5-4.6) mg/dL Magnesium (1.8-2.5) mg/dL Urine Color (YELLOW) Urine Appearance (CLEAR) Urine pH (5.0-9.0) Ur Specific [place] (1.005-1.030) Urine Protein (NEGATIVE) Urine Glucose (UA) (NEGATIVE) Urine Ketones (NEGATIVE) Urine Occult Blood (NEGATIVE) Urine Nitrite (NEGATIVE) Urine Bilirubin (NEGATIVE) Urine Urobilinogen (0.2-1.0) mg/dL Ur Leukocyte Esterase (NEGATIVE) Urine RBC /HPF Urine WBC (0-5/HPF) /HPF Ur Epithelial Cells /HPF Urine Bacteria (0-FEW/HPF) /HPF Hyaline Casts /LPF Fine Granular Casts (0/LPF) /LPF Urine Mucus /LPF Urine HCG, Qual Urine Opiates Screen (NEGATIVE) Ur Oxycodone Screen (NEGATIVE) Urine Methadone Screen (NEGATIVE) Ur Barbiturates Screen (NEGATIVE) U Tricyclic Antidepress (NEGATIVE) Ur Phencyclidine Scrn (NEGATIVE) Ur Amphetamine Screen (NEGATIVE) U Methamphetamines Scrn (NEGATIVE) Urine MDMA Screen (NEGATIVE) U Benzodiazepines Scrn (NEGATIVE) Urine Cocaine Screen (NEGATIVE) U Marijuana (THC) Screen (NEGATIVE) 10/08/16 10/08/16 10/08/16 Range/Units 02:31 03:36 04:38 WBC (5.0-10.0) 10^3/uL RBC (4.2-5.4) 10^6/uL Hgb (12.0-16.0) g/dL Hct (37.0-47.0) % MCV (80-100) fL MCH (27.0-34.0) pg MCHC (33.0-35.0) g/dL Plt Count (150-450) 10^3/uL Neut % (Auto) (42.2-75.2) % Lymph % (Auto) (20.5-50.1) % [place] % (Auto) (2-8) % Eos % (Auto) (1.0-3.0) % Baso % (Auto) (0.0-1.0) % Sodium (135-145) mmol/L Potassium (3.6-5.0) mmol/L Chloride (101-111) mmol/L Carbon Dioxide (21.0-31.0) mmol/L Anion Gap BUN (7-18) mg/dL Creatinine (0.6-1.3) mg/dL Est Cr Clr Drug Dosing mL/min Estimated GFR (MDRD) Glucose (74-105) mg/dL POC Glucose 241 H 238 H 240 H (70-105) mg/dl Calcium (8.4-10.2) mg/dl Phosphorus (2.5-4.6) mg/dL Magnesium (1.8-2.5) mg/dL Urine Color (YELLOW) Urine Appearance (CLEAR) Urine pH (5.0-9.0) Ur Specific [place] (1.005-1.030) Urine Protein (NEGATIVE) Urine Glucose (UA) (NEGATIVE) Urine Ketones (NEGATIVE) Urine Occult Blood (NEGATIVE) Urine Nitrite (NEGATIVE) Urine Bilirubin (NEGATIVE) Urine Urobilinogen (0.2-1.0) mg/dL Ur Leukocyte Esterase (NEGATIVE) Urine RBC /HPF Urine WBC (0-5/HPF) /HPF Ur Epithelial Cells /HPF Urine Bacteria (0-FEW/HPF) /HPF Hyaline Casts /LPF Fine Granular Casts (0/LPF) /LPF Urine Mucus /LPF Urine HCG, Qual Urine Opiates Screen (NEGATIVE) Ur Oxycodone Screen (NEGATIVE) Urine Methadone Screen (NEGATIVE) Ur Barbiturates Screen (NEGATIVE) U Tricyclic Antidepress (NEGATIVE) Ur Phencyclidine Scrn (NEGATIVE) Ur Amphetamine Screen (NEGATIVE) U Methamphetamines Scrn (NEGATIVE) Urine MDMA Screen (NEGATIVE) U Benzodiazepines Scrn (NEGATIVE) Urine Cocaine Screen (NEGATIVE) U Marijuana (THC) Screen (NEGATIVE) 10/08/16 10/08/16 10/08/16 Range/Units 05:29 06:20 06:20 WBC 8.0 (5.0-10.0) 10^3/uL RBC 4.54 (4.2-5.4) 10^6/uL Hgb 13.0 (12.0-16.0) g/dL Hct 39.3 (37.0-47.0) % MCV 86.6 (80-100) fL MCH 28.6 (27.0-34.0) pg MCHC 33.1 (33.0-35.0) g/dL Plt Count 247 (150-450) 10^3/uL Neut % (Auto) 53.5 (42.2-75.2) % Lymph % (Auto) 39.2 (20.5-50.1) % [place] % (Auto) 7.1 (2-8) % Eos % (Auto) 0.1 L (1.0-3.0) % Baso % (Auto) 0.1 (0.0-1.0) % Sodium 139 (135-145) mmol/L Potassium 3.8 (3.6-5.0) mmol/L Chloride 106 (101-111) mmol/L Carbon Dioxide 24.0 (21.0-31.0) mmol/L Anion Gap 12.8 BUN 18 (7-18) mg/dL Creatinine 0.6 (0.6-1.3) mg/dL Est Cr Clr Drug Dosing 118.39 mL/min Estimated GFR (MDRD) > 60 Glucose 243 H (74-105) mg/dL POC Glucose 243 H (70-105) mg/dl Calcium 8.6 (8.4-10.2) mg/dl Phosphorus 1.7 L (2.5-4.6) mg/dL Magnesium 2.0 (1.8-2.5) mg/dL Urine Color (YELLOW) Urine Appearance (CLEAR) Urine pH (5.0-9.0) Ur Specific [place] (1.005-1.030) Urine Protein (NEGATIVE) Urine Glucose (UA) (NEGATIVE) Urine Ketones (NEGATIVE) Urine Occult Blood (NEGATIVE) Urine Nitrite (NEGATIVE) Urine Bilirubin (NEGATIVE) Urine Urobilinogen (0.2-1.0) mg/dL Ur Leukocyte Esterase (NEGATIVE) Urine RBC /HPF Urine WBC (0-5/HPF) /HPF Ur Epithelial Cells /HPF Urine Bacteria (0-FEW/HPF) /HPF Hyaline Casts /LPF Fine Granular Casts (0/LPF) /LPF Urine Mucus /LPF Urine HCG, Qual Urine Opiates Screen (NEGATIVE) Ur Oxycodone Screen (NEGATIVE) Urine Methadone Screen (NEGATIVE) Ur Barbiturates Screen (NEGATIVE) U Tricyclic Antidepress (NEGATIVE) Ur Phencyclidine Scrn (NEGATIVE) Ur Amphetamine Screen (NEGATIVE) U Methamphetamines Scrn (NEGATIVE) Urine MDMA Screen (NEGATIVE) U Benzodiazepines Scrn (NEGATIVE) Urine Cocaine Screen (NEGATIVE) U Marijuana (THC) Screen (NEGATIVE) 10/08/16 10/08/16 10/08/16 Range/Units 06:41 07:45 09:09 WBC (5.0-10.0) 10^3/uL RBC (4.2-5.4) 10^6/uL Hgb (12.0-16.0) g/dL Hct (37.0-47.0) % MCV (80-100) fL MCH (27.0-34.0) pg MCHC (33.0-35.0) g/dL Plt Count (150-450) 10^3/uL Neut % (Auto) (42.2-75.2) % Lymph % (Auto) (20.5-50.1) % [place] % (Auto) (2-8) % Eos % (Auto) (1.0-3.0) % Baso % (Auto) (0.0-1.0) % Sodium (135-145) mmol/L Potassium (3.6-5.0) mmol/L Chloride (101-111) mmol/L Carbon Dioxide (21.0-31.0) mmol/L Anion Gap BUN (7-18) mg/dL Creatinine (0.6-1.3) mg/dL Est Cr Clr Drug Dosing mL/min Estimated GFR (MDRD) Glucose (74-105) mg/dL POC Glucose 205 H 196 H 262 H (70-105) mg/dl Calcium (8.4-10.2) mg/dl Phosphorus (2.5-4.6) mg/dL Magnesium (1.8-2.5) mg/dL Urine Color (YELLOW) Urine Appearance (CLEAR) Urine pH (5.0-9.0) Ur Specific [place] (1.005-1.030) Urine Protein (NEGATIVE) Urine Glucose (UA) (NEGATIVE) Urine Ketones (NEGATIVE) Urine Occult Blood (NEGATIVE) Urine Nitrite (NEGATIVE) Urine Bilirubin (NEGATIVE) Urine Urobilinogen (0.2-1.0) mg/dL Ur Leukocyte Esterase (NEGATIVE) Urine RBC /HPF Urine WBC (0-5/HPF) /HPF Ur Epithelial Cells /HPF Urine Bacteria (0-FEW/HPF) /HPF Hyaline Casts /LPF Fine Granular Casts (0/LPF) /LPF Urine Mucus /LPF Urine HCG, Qual Urine Opiates Screen (NEGATIVE) Ur Oxycodone Screen (NEGATIVE) Urine Methadone Screen (NEGATIVE) Ur Barbiturates Screen (NEGATIVE) U Tricyclic Antidepress (NEGATIVE) Ur Phencyclidine Scrn (NEGATIVE) Ur Amphetamine Screen (NEGATIVE) U Methamphetamines Scrn (NEGATIVE) Urine MDMA Screen (NEGATIVE) U Benzodiazepines Scrn (NEGATIVE) Urine Cocaine Screen (NEGATIVE) U Marijuana (THC) Screen (NEGATIVE) 10/08/16 10/08/16 Range/Units 10:09 11:05 WBC (5.0-10.0) 10^3/uL RBC (4.2-5.4) 10^6/uL Hgb (12.0-16.0) g/dL Hct (37.0-47.0) % MCV (80-100) fL MCH (27.0-34.0) pg MCHC (33.0-35.0) g/dL Plt Count (150-450) 10^3/uL Neut % (Auto) (42.2-75.2) % Lymph % (Auto) (20.5-50.1) % [place] % (Auto) (2-8) % Eos % (Auto) (1.0-3.0) % Baso % (Auto) (0.0-1.0) % Sodium (135-145) mmol/L Potassium (3.6-5.0) mmol/L Chloride (101-111) mmol/L Carbon Dioxide (21.0-31.0) mmol/L Anion Gap BUN (7-18) mg/dL Creatinine (0.6-1.3) mg/dL Est Cr Clr Drug Dosing mL/min Estimated GFR (MDRD) Glucose (74-105) mg/dL POC Glucose 347 H 274 H (70-105) mg/dl Calcium (8.4-10.2) mg/dl Phosphorus (2.5-4.6) mg/dL Magnesium (1.8-2.5) mg/dL Urine Color (YELLOW) Urine Appearance (CLEAR) Urine pH (5.0-9.0) Ur Specific [place] (1.005-1.030) Urine Protein (NEGATIVE) Urine Glucose (UA) (NEGATIVE) Urine Ketones (NEGATIVE) Urine Occult Blood (NEGATIVE) Urine Nitrite (NEGATIVE) Urine Bilirubin (NEGATIVE) Urine Urobilinogen (0.2-1.0) mg/dL Ur Leukocyte Esterase (NEGATIVE) Urine RBC /HPF Urine WBC (0-5/HPF) /HPF Ur Epithelial Cells /HPF Urine Bacteria (0-FEW/HPF) /HPF Hyaline Casts /LPF Fine Granular Casts (0/LPF) /LPF Urine Mucus /LPF Urine HCG, Qual Urine Opiates Screen (NEGATIVE) Ur Oxycodone Screen (NEGATIVE) Urine Methadone Screen (NEGATIVE) Ur Barbiturates Screen (NEGATIVE) U Tricyclic Antidepress (NEGATIVE) Ur Phencyclidine Scrn (NEGATIVE) Ur Amphetamine Screen (NEGATIVE) U Methamphetamines Scrn (NEGATIVE) Urine MDMA Screen (NEGATIVE) U Benzodiazepines Scrn (NEGATIVE) Urine Cocaine Screen (NEGATIVE) U Marijuana (THC) Screen (NEGATIVE) Med Orders - Current: Current Medications Acetaminophen (Tylenol) 650 mg PO Q4H PRN PRN Reason: Pain (Mild 1-3)/fever Docusate Sodium (Colace) 100 mg PO BID PRN PRN Reason: Constipation Heparin Sodium (Porcine) (Heparin Sodium) 5,000 units SUBCUT Q8HR [facility] Last Admin: 10/08/16 06:14 Dose: 5,000 units Insulin Aspart (Novolog) 0 unit SUBCUT TIDAC [facility] PRN Reason: Protocol Insulin Detemir (Levemir) 30 unit SUBCUT .BEDTIME [facility] Insulin Human Isoph/Insulin Regular (Novolin 70-30) 15 unit SUBCUT ONETIME ONE Stop: 10/08/16 11:12 Multivitamins (Thera) 1 each PO BEDTIME [facility] Last Admin: 10/07/16 21:28 Dose: 1 each Ondansetron HCl (Zofran Odt) 4 mg PO Q4H PRN PRN Reason: nausea, able to take PO Ondansetron HCl (Zofran) 4 mg IVPUSH Q6H PRN PRN Reason: Nausea/Vomiting Pantoprazole Sodium (Protonix Iv) 40 mg IVPUSH DAILY [facility] Last Admin: 10/08/16 09:53 Dose: 40 mg Promethazine HCl (Phenergan) 6.25 mg IM Q6H PRN PRN Reason: Nausea/Vomiting Sodium Chloride (Saline Flush) 10 ml FLUSH ASDIRECTED PRN PRN Reason: Keep Vein Open Zolpidem Tartrate (Ambien) 5 mg PO BEDTIME PRN PRN Reason: Sleep Discontinued Medications Sodium Chloride (Normal Saline) 1,000 mls @ 999 mls/hr IV .BOLUS ONE Stop: 10/07/16 11:37 Last Admin: 10/07/16 11:02 Dose: 999 mls/hr Potassium Chloride/Sodium Chloride (Normal Saline With 20 Meq Kcl) 1,000 mls @ 150 mls/hr IV ASDIRECTED DARI Last Admin: 10/07/16 14:46 Dose: 150 mls/hr Potassium Chloride/Dextrose/Sod Cl (D5 Ns With 20 Meq Kcl) 1,000 mls @ 150 mls/ hr IV ASDIRECTED DARI Last Admin: 10/07/16 23:23 Dose: 150 mls/hr Insulin Human Regular 100 unit (/ Sodium Chloride) 100 mls @ 5 mls/hr SUBCUT TITRATE DARI; 5 UNITS/HR PRN Reason: Protocol Insulin Human Regular 100 unit (/ Sodium Chloride) 100 mls @ 5 mls/hr IV TITRATE DARI; 5 UNITS/HR PRN Reason: Protocol Last Titration: 10/08/16 11:08 Dose: 3 units/hr, 3 mls/hr Insulin Human Regular (Humulin R) 12 unit SUBCUT ONETIME ONE PRN Reason: Protocol Stop: 10/07/16 10:59 Last Admin: 10/07/16 11:09 Dose: 12 units Insulin Human Regular (Humulin R) 7 unit IV ONETIME ONE PRN Reason: Protocol Stop: 10/07/16 11:26 Last Admin: 10/07/16 11:41 Dose: 7 units Insulin Human Regular (Humulin R) 0 unit IV ONETIME ONE PRN Reason: Protocol Stop: 10/07/16 12:55 Last Admin: 10/07/16 15:46 Dose: Not Given Insulin Human Regular (Humulin R) 0 unit IV .ASDIRECTED DARI PRN Reason: Protocol Ondansetron HCl (Zofran) 4 mg IV ONETIME ONE Stop: 10/07/16 10:38 Last Admin: 10/07/16 11:02 Dose: 4 mg Sodium Phosphate (Neutra-Phos) 250 mg PO Q4H DARI Stop: 10/08/16 06:01 Last Admin: 10/08/16 06:13 Dose: 250 mg - Exam General: Alert, Oriented Neck: Supple Lungs: Clear to Auscultation, Normal Respiratory Effort Cardiovascular: Regular Rate, Regular Rhythm GI/Abdominal Exam: Normal Bowel Sounds, Soft, Non-Tender Extremities: No Pedal Edema - Problem List & Annotations (1) DKA (diabetic ketoacidosis) SNOMED Code(s): 621986902, 614913867 Code(s): E13.10 - OTH DIABETES MELLITUS WITH KETOACIDOSIS WITHOUT COMA Status: Acute Current Visit: Yes Qualifiers: Diabetes mellitus type: type 2 Diabetes mellitus complication detail: without coma Qualified Code(s): E13.10 - Other specified diabetes mellitus with ketoacidosis without coma - Problem List Review Problem List Initiated/Reviewed/Updated: Yes - My Orders Last 24 Hours: My Active Orders 10/07/16 21:00 Multivitamins,Therapeutic [Thera] 1 each PO BEDTIME 10/08/16 11:11 Insulin NPH/Insulin Reg,Human [NovoLIN 70-30] 15 unit SUBCUT ONETIME ONE 10/08/16 11:15 Glucose [Blood Glucose Check, Bedside] [RC] QIDACANDBED Insulin Detemir [Levemir] 30 unit SUBCUT .BEDTIME 10/08/16 17:00 Insulin Aspart [NovoLOG] See Protocol SUBCUT TIDAC 10/09/16 05:11 PHOSPHORUS [CHEM] AM 10/09/16 05:15 BASIC METABOLIC PANEL,BMP [CHEM] AM CBC WITH AUTO DIFF [HEME] AM - Plan Plan:: Nausea vomiting likely due to alcohol related GASTRITIS and DKA improved use antiemetics as needed cont proton pump inhibitor DKA resolved advance diet, stop IV fluids stop Insulin drip Follow electrolytes and replace them as needed give a dose of NPH resume levemir add supplemental insulin Diabetes Likely type 1 diabetes Discussed importance of management and baseline insulin need Leukocytosis Likely reactive due to DKA DVT prophylaxis will be with subcutaneous heparin
[2016-10-08] MEDS ORDERED: Insulin Regular, Human 100 Units/ML 3 ML Vial SUBCUT SCH (17:00)
[2016-10-08] MEDS: Insulin Aspart 100 Units/ML 3 ML Pen SUBCUT SCH (17:56)
[2016-10-08] MEDS ORDERED: Insulin Regular, Human 100 Units/ML 3 ML Vial SUBCUT ONE (18:01)
[2016-10-08] MEDS ORDERED: Insulin Detemir 100 Units/ML 3 ML Pen SUBCUT SCH (21:00)
[2016-10-08] MEDS: Multivitamins,Therapeutic Tab PO SCH (22:45)
[2016-10-09] MEDS: Heparin Sodium 5,000 Units/ML Vial SUBCUT SCH (06:43)
[2016-10-09 07:04] LABS: CHLORIDE,CL 108 mmol/L (101-111); SODIUM,NA 141 mmol/L (135-145)
[2016-10-09 07:57] VITALS: BP 121/80
[2016-10-09] MEDS ORDERED: Potassium Chloride 10 MEQ Tab.ER PO ONE (08:29)
[2016-10-09] MEDS: Insulin Aspart 100 Units/ML 3 ML Pen SUBCUT SCH ×2 (08:30→12:21)
[2016-10-09] MEDS: Insulin Regular, Human 100 Units/ML 3 ML Vial SUBCUT SCH ×2 (08:34→12:20)
[2016-10-09] MEDS: Phosphorus #1 250 MG Tab PO SCH (08:35)
[2016-10-09] MEDS: Pantoprazole 40 MG Vial IVPUSH SCH (08:36)
--- NOTE | 2016-10-09 11:11 | EKG ---
10/07/2016- ZULEIMA GOULD - EKG per my reading shows sinus rhythm at the rate of [address] [facility] /[id number]
--- NOTE | 2016-10-09 11:32 | PCM.DCSUM1 ---
Discharge Summary - Hospital Course Free Text/Narrative:: The patient is a 31-year-old lady who has a history of diabetes. Insulin- dependent. Presented with nausea and vomiting after alcohol drinking. She was noted to have DKA. This was treated with IV fluids, insulin. For the gastritis proton pump inhibitor was used. By the time of discharge the patient is able to eat and drink well. Able to manage her diabetes with continued insulin and oral food intake. - Discharge Data Discharge Date: 10/09/16 Discharge Disposition: Home, Self-Care 01 Condition: Stable - Discharge Diagnosis/Problem(s) (1) DKA (diabetic ketoacidosis) SNOMED Code(s): 267150246, 919824582 ICD Code: E13.10 - OTH DIABETES MELLITUS WITH KETOACIDOSIS WITHOUT COMA Status: Acute Current Visit: Yes Qualifiers: Diabetes mellitus type: type 2 Diabetes mellitus complication detail: without coma Qualified Code(s): E13.10 - Other specified diabetes mellitus with ketoacidosis without coma - Patient Instructions Diet: Diabetic Diet Activity: As Tolerated - Discharge Plan Prescriptions/Med Rec: Multivitamins,Therapeutic [Thera] 1 each PO BEDTIME #30 tablet Home Medications: Home Meds Cholecalciferol (Vitamin D3) [Vitamin D3] 400 units PO DAILY 10/07/16 [History] Insulin Aspart [NovoLOG] 30 unit SUBCUT TIDAC 10/07/16 [History] Insulin Detemir [Levemir] 20 unit SUBCUT QAM 10/07/16 [History] Lisinopril 5 mg PO DAILY 10/07/16 [History] Multivitamins,Therapeutic [Thera] 1 each PO BEDTIME #30 tablet 10/09/16 [Rx] Referrals: Checo Kaur [Primary Care Provider] - (in 2-3 days) - Discharge Summary/Plan Comment DC Time >30 min.: No - Review of Systems General: Denies: Fever Pulmonary: Denies: Shortness of Breath Cardiovascular: Denies: Chest Pain Gastrointestinal: Denies: Abdominal Pain Genitourinary: Denies: Dysuria - Patient Data Vitals - Most Recent: Last Vital Signs Temp 36.1 C 10/09/16 07:00 Pulse 82 10/09/16 07:00 Resp 20 10/09/16 07:00 BP 121/80 10/09/16 07:00 Pulse Ox 100 10/09/16 07:00 Weight - Most Recent: 70.307 kg I&O - Last 24 hours: Intake & Output 10/08/16 10/09/16 10/09/16 22:59 06:59 14:59 Intake Total 630 250 Output Total 550 Balance 630 -300 Lab Results - Last 24 hrs: Laboratory Results - last 24 hr 10/08/16 10/08/16 10/08/16 Range/Units 12:12 17:16 21:21 WBC (5.0-10.0) 10^3/uL RBC (4.2-5.4) 10^6/uL Hgb (12.0-16.0) g/dL Hct (37.0-47.0) % MCV (80-100) fL MCH (27.0-34.0) pg MCHC (33.0-35.0) g/dL Plt Count (150-450) 10^3/uL Neut % (Auto) (42.2-75.2) % Lymph % (Auto) (20.5-50.1) % [place] % (Auto) (2-8) % Eos % (Auto) (1.0-3.0) % Baso % (Auto) (0.0-1.0) % Add Manual Diff Neutrophils % (Manual) % Band Neutrophils % % Lymphocytes % (Manual) % Monocytes % (Manual) % Sodium (135-145) mmol/L Potassium (3.6-5.0) mmol/L Chloride (101-111) mmol/L Carbon Dioxide (21.0-31.0) mmol/L Anion Gap BUN (7-18) mg/dL Creatinine (0.6-1.3) mg/dL Est Cr Clr Drug Dosing mL/min Estimated GFR (MDRD) Glucose (74-105) mg/dL POC Glucose 206 H 382 H 259 H (70-105) mg/dl Calcium (8.4-10.2) mg/dl Phosphorus (2.5-4.6) mg/dL 10/09/16 10/09/16 10/09/16 Range/Units 06:30 06:30 07:58 WBC 7.0 (5.0-10.0) 10^3/uL RBC 4.34 (4.2-5.4) 10^6/uL Hgb 12.2 (12.0-16.0) g/dL Hct 37.5 (37.0-47.0) % MCV 86.4 (80-100) fL MCH 28.1 (27.0-34.0) pg MCHC 32.5 L (33.0-35.0) g/dL Plt Count 214 (150-450) 10^3/uL Neut % (Auto) 32.7 L (42.2-75.2) % Lymph % (Auto) 58.5 H (20.5-50.1) % [place] % (Auto) 8.0 (2-8) % Eos % (Auto) 0.7 L (1.0-3.0) % Baso % (Auto) 0.1 (0.0-1.0) % Add Manual Diff Yes Neutrophils % (Manual) 47 % Band Neutrophils % 1 % Lymphocytes % (Manual) 46 % Monocytes % (Manual) 6 % Sodium 141 (135-145) mmol/L Potassium 3.1 L (3.6-5.0) mmol/L Chloride 108 (101-111) mmol/L Carbon Dioxide 24.0 (21.0-31.0) mmol/L Anion Gap 12.1 BUN 8 (7-18) mg/dL Creatinine 0.4 L (0.6-1.3) mg/dL Est Cr Clr Drug Dosing 177.58 mL/min Estimated GFR (MDRD) > 60 Glucose 63 L (74-105) mg/dL POC Glucose 100 (70-105) mg/dl Calcium 8.5 (8.4-10.2) mg/dl Phosphorus 3.1 (2.5-4.6) mg/dL /11/17 Range/Units 11:20 WBC (5.0-10.0) 10^3/uL RBC (4.2-5.4) 10^6/uL Hgb (12.0-16.0) g/dL Hct (37.0-47.0) % MCV (80-100) fL MCH (27.0-34.0) pg MCHC (33.0-35.0) g/dL Plt Count (150-450) 10^3/uL Neut % (Auto) (42.2-75.2) % Lymph % (Auto) (20.5-50.1) % [place] % (Auto) (2-8) % Eos % (Auto) (1.0-3.0) % Baso % (Auto) (0.0-1.0) % Add Manual Diff Neutrophils % (Manual) % Band Neutrophils % % Lymphocytes % (Manual) % Monocytes % (Manual) % Sodium (135-145) mmol/L Potassium (3.6-5.0) mmol/L Chloride (101-111) mmol/L Carbon Dioxide (21.0-31.0) mmol/L Anion Gap BUN (7-18) mg/dL Creatinine (0.6-1.3) mg/dL Est Cr Clr Drug Dosing mL/min Estimated GFR (MDRD) Glucose (74-105) mg/dL POC Glucose 158 H (70-105) mg/dl Calcium (8.4-10.2) mg/dl Phosphorus (2.5-4.6) mg/dL Med Orders - Current: Current Medications Acetaminophen (Tylenol) 650 mg PO Q4H PRN PRN Reason: Pain (Mild 1-3)/fever Docusate Sodium (Colace) 100 mg PO BID PRN PRN Reason: Constipation Heparin Sodium (Porcine) (Heparin Sodium) 5,000 units SUBCUT Q8HR [facility] Last Admin: 10/09/16 06:43 Dose: 5,000 units Insulin Aspart (Novolog) 0 unit SUBCUT TIDAC [facility] PRN Reason: Protocol Last Admin: 10/09/16 08:30 Dose: Not Given Insulin Detemir (Levemir) 30 unit SUBCUT BEDTIME [facility] Last Admin: 10/08/16 22:42 Dose: 30 units Insulin Human Regular (Humulin R) 5 unit SUBCUT TIDAC [facility] Last Admin: 10/09/16 08:34 Dose: 5 units Multivitamins (Thera) 1 each PO BEDTIME [facility] Last Admin: 10/08/16 22:45 Dose: 1 each Ondansetron HCl (Zofran Odt) 4 mg PO Q4H PRN PRN Reason: nausea, able to take PO Ondansetron HCl (Zofran) 4 mg IVPUSH Q6H PRN PRN Reason: Nausea/Vomiting Pantoprazole Sodium (Protonix Iv) 40 mg IVPUSH DAILY [facility] Last Admin: 10/09/16 08:36 Dose: 40 mg Promethazine HCl (Phenergan) 6.25 mg IM Q6H PRN PRN Reason: Nausea/Vomiting Sodium Chloride (Saline Flush) 10 ml FLUSH ASDIRECTED PRN PRN Reason: Keep Vein Open Last Admin: 10/09/16 08:36 Dose: 10 ml Zolpidem Tartrate (Ambien) 5 mg PO BEDTIME PRN PRN Reason: Sleep Discontinued Medications Sodium Chloride (Normal Saline) 1,000 mls @ 999 mls/hr IV .BOLUS ONE Stop: 10/07/16 11:37 Last Admin: 10/07/16 11:02 Dose: 999 mls/hr Potassium Chloride/Sodium Chloride (Normal Saline With 20 Meq Kcl) 1,000 mls @ 150 mls/hr IV ASDIRECTED DARI Last Admin: 10/07/16 14:46 Dose: 150 mls/hr Potassium Chloride/Dextrose/Sod Cl (D5 Ns With 20 Meq Kcl) 1,000 mls @ 150 mls/ hr IV ASDIRECTED [facility]I Last Admin: 10/07/16 23:23 Dose: 150 mls/hr Insulin Human Regular 100 unit (/ Sodium Chloride) 100 mls @ 5 mls/hr SUBCUT TITRATE [facility]I; 5 UNITS/HR PRN Reason: Protocol Insulin Human Regular 100 unit (/ Sodium Chloride) 100 mls @ 5 mls/hr IV TITRATE [facility]ARI; 5 UNITS/HR PRN Reason: Protocol Last Titration: 10/08/16 12:18 Dose: 0 units/hr, 0 mls/hr Insulin Human Isoph/Insulin Regular (Novolin 70-30) 15 unit SUBCUT ONETIME ONE Stop: 10/08/16 11:12 Last Admin: 10/08/16 12:17 Dose: 15 units Insulin Human Regular (Humulin R) 12 unit SUBCUT ONETIME ONE PRN Reason: Protocol Stop: 10/07/16 10:59 Last Admin: 10/07/16 11:09 Dose: 12 units Insulin Human Regular (Humulin R) 7 unit IV ONETIME ONE PRN Reason: Protocol Stop: 10/07/16 11:26 Last Admin: 10/07/16 11:41 Dose: 7 units Insulin Human Regular (Humulin R) 0 unit IV ONETIME ONE PRN Reason: Protocol Stop: 10/07/16 12:55 Last Admin: 10/07/16 15:46 Dose: Not Given Insulin Human Regular (Humulin R) 0 unit IV .ASDIRECTED [facility] PRN Reason: Protocol Insulin Human Regular (Humulin R) 5 unit SUBCUT ONETIME ONE Stop: 10/08/16 18:02 Last Admin: 10/08/16 18:18 Dose: 5 units Ondansetron HCl (Zofran) 4 mg IV ONETIME ONE Stop: 10/07/16 10:38 Last Admin: 10/07/16 11:02 Dose: 4 mg Potassium Chloride (Klor-Con 10) 40 meq PO ONETIME ONE Stop: 10/09/16 08:30 Last Admin: 10/09/16 09:48 Dose: 40 meq Sodium Phosphate (Neutra-Phos) 250 mg PO Q4H [facility] Stop: 10/08/16 06:01 Last Admin: 10/08/16 06:13 Dose: 250 mg Sodium Phosphate (Neutra-Phos) 250 mg PO QID [facility] Stop: 10/09/16 09:01 Last Admin: 10/09/16 08:35 Dose: 250 mg - Exam General: Reports: Alert, Oriented Neck: Reports: Supple Lungs: Reports: Clear to Auscultation, Normal Respiratory Effort Cardiovascular: Reports: Regular Rate, Regular Rhythm GI/Abdominal Exam: Normal Bowel Sounds, Soft, Non-Tender Extremities: No Pedal Edema Skin: Reports: Warm, Dry *Q Meaningful Use (DIS) - VTE *Q VTE Criteria *Q: - Stroke *Q Stroke Criteria *Q: - AMI *Q AMI Criteria *Q:
== END 2016-10-09 12:58 | disposition home or self-care (01) | DRG 639 ==
LOC: DL.ED 10:34 → DL.MS 12:56
PROVIDERS: ADMIT Internal Medicine; ATTEND Internal Medicine
DX: E13.10 Other specified diabetes mellitus with ketoacidosis without coma (principal); Z79.4 Long term (current) use of insulin; D72.829 Elevated white blood cell count, unspecified; F17.210 Nicotine dependence, cigarettes, uncomplicated; Z88.0 Allergy status to penicillin; K29.70 Gastritis, unspecified, without bleeding
CPT/HCPCS: 36415; 36600; 71010; 80053; 82009; 82150; 82803; 82962 ×2; 83605; 83690; 84484; 85025; 87040 ×2; 96361; 96374; 96375; 99285; G0480; J1815; J2405; J7030; 80048; 80305; 81001; 81025; 83735; 84100; 93005; A9270-GY; C9113; J1644; J3480; J7050

== ENCOUNTER 2019-08-22 03:24 | Emergency (ER) | payer MEDICAID, SELFPAY ==
[2019-08-22] MEDS ORDERED: Sodium Chloride 0.9% 1,000 ML IV ONE (03:45)
[2019-08-22] MEDS ORDERED: Labetalol 20 MG/4 ML Syringe IVPUSH ONE (03:46)
[2019-08-22 04:13] LABS: ANION GAP 13.5 mEq/L (7-13); CHLORIDE,CL 94 mmol/L (98-107); SODIUM,NA 130 mmol/L (136-145)
[2019-08-22 05:16] VITALS: BP 110/76; PULSE 96
--- NOTE | 2019-08-22 05:16 | EDM.PDOCBH ---
ED HPI GENERAL MEDICAL PROBLEM - General Chief Complaint: Drug or Alcohol Abuse Stated Complaint: DIABETIC SUGAR IS HIGH BUT YOUR FEELING ITS LOW Time Seen by Provider: 08/22/19 03:45 Source of Information: Reports: Patient History Limitations: Reports: No Limitations - History of Present Illness INITIAL COMMENTS - FREE TEXT/NARRATIVE: ED with report of feeling shaky. Admits meth IVDU around 11 am. Uses at least weekly this past week daily. Has not taken insulin for past 3 days. nauseated. No emesis - Related Data Allergies Allergy/AdvReac Type Severity Reaction Status Date / Time No Known Allergies Allergy Verified 08/22/19 03:43 Home Meds: Home Meds Cholecalciferol (Vitamin D3) [Vitamin D3] 400 units PO DAILY 10/07/16 [History] Insulin Aspart [NovoLOG] 30 unit SUBCUT TIDAC 10/07/16 [History] Insulin Detemir [Levemir] 20 unit SUBCUT QAM 10/07/16 [History] Lisinopril 5 mg PO DAILY 10/07/16 [History] Multivitamins,Therapeutic [Thera] 1 each PO BEDTIME #30 tablet 10/09/16 [Rx] Past Medical History HEENT History: Reports: Impaired Vision Cardiovascular History: Reports: Heart Failure, Hypertension, Other (See Below) Other Cardiovascular History: previous episode of DKA resulted in heart failure Gastrointestinal History: Reports: None Genitourinary History: Reports: Diabetic Nephropathy 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: Musculoskeletal History: Reports: None Neurological History: Reports: Neuropathy, Diabetic Psychiatric History: Reports: Addiction, Depression Endocrine/Metabolic History: Reports: Diabetes, Type I, IDDM Hematologic History: Reports: Anemia Immunologic History: Reports: None Oncologic (Cancer) History: Reports: None Dermatologic History: Reports: None - Infectious Disease History Infectious Disease History: Reports: None - Past Surgical History Cardiovascular Surgical History: Reports: None GI Surgical History: Reports: Appendectomy Female Surgical History: Reports: Section Neurological Surgical History: Reports: None Musculoskeletal Surgical History: Reports: None Oncologic Surgical History: Reports: None Dermatological Surgical History: Reports: None Social & Family History - Family History Family Medical History: Noncontributory - Tobacco Use Smoking Status *Q: Current Every Day Smoker Years of Tobacco use: 17 Packs/Tins Daily: 0.1 - Caffeine Use Caffeine Use: Reports: Coffee - Recreational Drug Use Recreational Drug Use: Yes Recreational Drug Type: Reports: Marijuana/Hashish, Methamphetamine Recreational Drug Use Frequency: Weekly Recreational Drug Last Use: t-1 - Living Situation & Occupation Living situation: Reports: with Significant Other Occupation: Unemployed ED ROS GENERAL - Review of Systems Review Of Systems: See Below Constitutional: Reports: Malaise, Decreased Appetite HEENT: Reports: No Symptoms Respiratory: Reports: No Symptoms Cardiovascular: Reports: No Symptoms Endocrine: Reports: No Symptoms GI/Abdominal: Reports: No Symptoms : Reports: No Symptoms Musculoskeletal: Reports: No Symptoms Skin: Reports: No Symptoms ED EXAM, BEHAVIORAL HEALTH - Physical Exam Exam: See Below Exam Limited By: No Limitations General Appearance: Alert, No Apparent Distress Eye Exam: Bilateral Eye: Bleeding, EOMI Ears: Normal External Exam Nose: Normal Inspection Throat/Mouth: Normal Inspection Head: Atraumatic, Normocephalic Neck: Normal Inspection Cardiovascular: Normal Peripheral Pulses GI/Abdominal: Normal Bowel Sounds, Non-Tender, Pelvis Stable Back Exam: Normal Inspection Psychiatric: Alert, Restless Skin Exam: Warm, Dry, Intact, Normal color, No rash COURSE, BEHAVIORAL HEALTH COMP - Course Vital Signs: Last Vital Signs Temp 98.2 F 08/22/19 03:44 Pulse 95 08/22/19 04:54 Resp 28 H 08/22/19 03:44 BP 133/89 08/22/19 04:54 Pulse Ox 100 08/22/19 04:54 Orders, Labs, Meds: Active Orders 24 hr Category Date Time Status EKG 12 Lead [EKG Documentation Completion] [RC] URGENT Care 08/22/19 04:15 Active Glucose [Blood Glucose Check, Bedside] [RC] ONETIME Care 08/22/19 03:54 Active Laboratory Tests 08/22/19 08/22/19 08/22/19 Range/Units 03:40 03:40 03:40 WBC 13.0 H (5.0-10.0) 10^3/uL RBC 4.45 (4.2-5.4) 10^6/uL Hgb 12.0 (12.0-16.0) g/dL Hct 35.9 L (37.0-47.0) % MCV 80.7 D (80-100) fL MCH 27.0 (27.0-34.0) pg MCHC 33.4 (33.0-35.0) g/dL Plt Count 308 D (150-450) 10^3/uL Neut % (Auto) 74.4 (42.2-75.2) % Lymph % (Auto) 16.4 L (20.5-50.1) % [place] % (Auto) 8.4 H (2-8) % Eos % (Auto) 0.6 L (1.0-3.0) % Baso % (Auto) 0.2 (0.0-1.0) % Sodium 130 L (136-145) mmol/L Potassium 3.5 (3.5-5.1) mmol/L Chloride 94 L (98-107) mmol/L Carbon Dioxide 26 (21-32) mmol/L Anion Gap 13.5 H (7-13) mEq/L BUN 16 (7-18) mg/dL Creatinine 0.85 (0.55-1.02) mg/dL Est Cr Clr Drug Dosing 89.13 mL/min Estimated GFR (MDRD) > 60 BUN/Creatinine Ratio 18.8 (No establ ref range) Glucose 204 H (74-99) mg/dL Lactic Acid 4.4 H* (0.4-2.0) mmol/L Calcium 9.1 (8.5-10.1) mg/dL Total Bilirubin 0.3 (0.2-1.0) mg/dL AST 18 (15-37) U/L ALT 24 (14-59) U/L Alkaline Phosphatase 125 H (46-116) U/L Total Protein 6.8 (6.4-8.2) g/dL Albumin 3.0 L (3.4-5.0) g/dL Globulin 3.8 Albumin/Globulin Ratio 0.79 Amylase 49 (25-115) U/L Lipase 381 (73-393) U/L HCG, Qual Negative Urine Color (YELLOW) Urine Appearance (CLEAR) Urine pH (5.0-9.0) Ur Specific [place] (1.005-1.030) Urine Protein (NEGATIVE) Urine Glucose (UA) (NEGATIVE) Urine Ketones (NEGATIVE) Urine Occult Blood (NEGATIVE) Urine Nitrite (NEGATIVE) Urine Bilirubin (NEGATIVE) Urine Urobilinogen (0.2-1.0) mg/dL Ur Leukocyte Esterase (NEGATIVE) Urine RBC /HPF Urine WBC (0-5/HPF) /HPF Ur Epithelial Cells (NOT SEEN) /HPF Amorphous Sediment (NOT SEEN) /HPF Urine Bacteria (0-FEW/HPF) /HPF Urine Mucus (NOT SEEN) /LPF Urine Opiates Screen (NEGATIVE) Ur Oxycodone Screen (NEGATIVE) Urine Methadone Screen (NEGATIVE) Ur Barbiturates Screen (NEGATIVE) U Tricyclic Antidepress (NEGATIVE) Ur Phencyclidine Scrn (NEGATIVE) Ur Amphetamine Screen (NEGATIVE) U Methamphetamines Scrn (NEGATIVE) Urine MDMA Screen (NEGATIVE) U Benzodiazepines Scrn (NEGATIVE) Urine Cocaine Screen (NEGATIVE) U Marijuana (THC) Screen (NEGATIVE) Ethyl Alcohol < 3 (0) mg/dL Ketones Negative 08/22/19 08/22/19 Range/Units 03:43 04:06 WBC (5.0-10.0) 10^3/uL RBC (4.2-5.4) 10^6/uL Hgb (12.0-16.0) g/dL Hct (37.0-47.0) % MCV (80-100) fL MCH (27.0-34.0) pg MCHC (33.0-35.0) g/dL Plt Count (150-450) 10^3/uL Neut % (Auto) (42.2-75.2) % Lymph % (Auto) (20.5-50.1) % [place] % (Auto) (2-8) % Eos % (Auto) (1.0-3.0) % Baso % (Auto) (0.0-1.0) % Sodium (136-145) mmol/L Potassium (3.5-5.1) mmol/L Chloride (98-107) mmol/L Carbon Dioxide (21-32) mmol/L Anion Gap (7-13) mEq/L BUN (7-18) mg/dL Creatinine (0.55-1.02) mg/dL Est Cr Clr Drug Dosing mL/min Estimated GFR (MDRD) BUN/Creatinine Ratio (No establ ref range) Glucose (74-99) mg/dL Lactic Acid (0.4-2.0) mmol/L Calcium (8.5-10.1) mg/dL Total Bilirubin (0.2-1.0) mg/dL AST (15-37) U/L ALT (14-59) U/L Alkaline Phosphatase (46-116) U/L Total Protein (6.4-8.2) g/dL Albumin (3.4-5.0) g/dL Globulin Albumin/Globulin Ratio Amylase (25-115) U/L Lipase (73-393) U/L HCG, Qual Urine Color Light yellow (YELLOW) Urine Appearance Slightly cloudy (CLEAR) Urine pH 7.0 (5.0-9.0) Ur Specific [place] 1.010 (1.005-1.030) Urine Protein 30 H (NEGATIVE) Urine Glucose (UA) 250 H (NEGATIVE) Urine Ketones Negative (NEGATIVE) Urine Occult Blood Trace-intact H (NEGATIVE) Urine Nitrite Negative (NEGATIVE) Urine Bilirubin Negative (NEGATIVE) Urine Urobilinogen 0.2 (0.2-1.0) mg/dL Ur Leukocyte Esterase Negative (NEGATIVE) Urine RBC 0-5 /HPF Urine WBC 0-5 (0-5/HPF) /HPF Ur Epithelial Cells Moderate H (NOT SEEN) /HPF Amorphous Sediment Few (NOT SEEN) /HPF Urine Bacteria Few (0-FEW/HPF) /HPF Urine Mucus Rare (NOT SEEN) /LPF Urine Opiates Screen Negative (NEGATIVE) Ur Oxycodone Screen Negative (NEGATIVE) Urine Methadone Screen Negative (NEGATIVE) Ur Barbiturates Screen Negative (NEGATIVE) U Tricyclic Antidepress Negative (NEGATIVE) Ur Phencyclidine Scrn Negative (NEGATIVE) Ur Amphetamine Screen Negative (NEGATIVE) U Methamphetamines Scrn Positive H (NEGATIVE) Urine MDMA Screen Negative (NEGATIVE) U Benzodiazepines Scrn Negative (NEGATIVE) Urine Cocaine Screen Negative (NEGATIVE) U Marijuana (THC) Screen Negative (NEGATIVE) Ethyl Alcohol (0) mg/dL Ketones Medications Discontinued Medications Generic Name Dose Route Start Last Admin Trade Name Freq PRN Reason Stop Dose Admin Sodium Chloride 1,000 mls @ 999 mls/hr 08/22/19 03:45 08/22/19 03:56 Normal Saline IV 08/22/19 04:45 999 mls/hr .BOLUS ONE Administration Labetalol HCl 20 mg 08/22/19 03:46 08/22/19 03:56 Normodyne IVPUSH 08/22/19 03:47 10 mg ONETIME ONE Administration Departure - Departure Time of Disposition: 05:07 Disposition: Home, Self-Care 01 Condition: Good Clinical Impression: Methamphetamine abuse, Hypoglycemia, Hyponatremia, Noncompliance with diabetes treatment - Discharge Information *PRESCRIPTION DRUG MONITORING PROGRAM REVIEWED*: No *COPY OF PRESCRIPTION DRUG MONITORING REPORT IN PATIENT JIMENEZ: No Additional Instructions: Follow up with Addiction services on Friday morning increase fluids follow up with PCP this week monitor blood sugars take medication as prescribed Sepsis Event Note (ED) - Evaluation Sepsis Screening Result: No Definite Risk - Focused Exam Vital Signs: Vital Signs Temp Pulse Resp BP Pulse Ox 08/22/19 04:54 95 133/89 100 08/22/19 04:42 95 140/93 H 100 08/22/19 04:33 96 146/94 H 100 08/22/19 04:24 95 156/102 H 100 08/22/19 04:12 99 148/100 H 100 08/22/19 03:59 140/92 H 08/22/19 03:54 150/103 H 08/22/19 03:44 98.2 F 113 H 28 H 172/109 H 100 - My Orders Last 24 Hours: My Active Orders 08/22/19 03:54 Glucose [Blood Glucose Check, Bedside] [] ONETIME 08/22/19 04:15 EKG 12 Lead [EKG Documentation Completion] [RC] URGENT - Assessment/Plan Last 24 Hours: My Active Orders 08/22/19 03:54 Glucose [Blood Glucose Check, Bedside] [RC] ONETIME 08/22/19 04:15 EKG 12 Lead [EKG Documentation Completion] [RC] URGENT
== END 2019-08-22 05:20 | disposition home or self-care (01) ==
LOC: DL.ED 03:24
DX: E10.649 Type 1 diabetes mellitus with hypoglycemia without coma (principal); F15.10 Other stimulant abuse, uncomplicated; E87.1 Hypo-osmolality and hyponatremia; E10.40 Type 1 diabetes mellitus with diabetic neuropathy, unspecified; E10.21 Type 1 diabetes mellitus with diabetic nephropathy; F17.210 Nicotine dependence, cigarettes, uncomplicated; I11.0 Hypertensive heart disease with heart failure; I50.9 Heart failure, unspecified; Z91.14 Patient's other noncompliance with medication regimen; Z79.899 Other long term (current) drug therapy
CPT/HCPCS: 36415; 80053; 80305; 80307; 81001; 82009; 82150; 82962; 83605; 83690; 84703; 85025; 93005; 96361; 96374; 99285; J3490; J7030

== ENCOUNTER 2019-08-30 01:30 | Emergency (ER) | payer MEDICAID ==
[2019-08-30 01:42] VITALS: PULSE 105
--- NOTE | 2019-08-30 02:06 | EDM.PDOC ---
ED HPI GENERAL MEDICAL PROBLEM - General Chief Complaint: General Stated Complaint: BLOOD PRESSURE HIGH Time Seen by Provider: 08/30/19 01:58 Source of Information: Reports: Patient History Limitations: Reports: No Limitations - History of Present Illness INITIAL COMMENTS - FREE TEXT/NARRATIVE: This 33 yo female patient reports to the ED due to feeling like her blood pressure is too high. The patient reports she was going to bed when she started to feel like her blood pressure was getting too high. The patient reports she has tried to follow all directions she was given 1 week ago while in the ED. She has not gotten into her primary care facility to have her medications refilled, but she has attempted to get into a treatment facility, the patient has stopped drinking and stopped using meth. The patient reports she has had several episodes of panic attacks in the past with similar symptoms. Onset: Today Duration: Minutes: Location: Reports: Generalized Quality: Reports: Other Severity: Moderate Improves with: Reports: None Worsens with: Reports: None Context: Reports: Other Associated Symptoms: Reports: No Other Symptoms - Related Data Allergies Allergy/AdvReac Type Severity Reaction Status Date / Time No Known Allergies Allergy Verified 08/30/19 01:52 Home Meds: Home Meds Cholecalciferol (Vitamin D3) [Vitamin D3] 400 units PO DAILY 10/07/16 [History] Insulin Aspart [NovoLOG] 30 unit SUBCUT TIDAC 10/07/16 [History] Insulin Detemir [Levemir] 20 unit SUBCUT QAM 10/07/16 [History] Lisinopril 5 mg PO DAILY 10/07/16 [History] Multivitamins,Therapeutic [Thera] 1 each PO BEDTIME #30 tablet 10/09/16 [Rx] Past Medical History HEENT History: Reports: Impaired Vision Cardiovascular History: Reports: Heart Failure, Hypertension, Other (See Below) Other Cardiovascular History: previous episode of DKA resulted in heart failure Gastrointestinal History: Reports: None Genitourinary History: Reports: Diabetic Nephropathy 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 INFORMATION OFFICER History: Reports: Musculoskeletal History: Reports: None Neurological History: Reports: Neuropathy, Diabetic Psychiatric History: Reports: Addiction, Depression Endocrine/Metabolic History: Reports: Diabetes, Type I, IDDM Hematologic History: Reports: Anemia Immunologic History: Reports: None Oncologic (Cancer) History: Reports: None Dermatologic History: Reports: None - Infectious Disease History Infectious Disease History: Reports: None - Past Surgical History Cardiovascular Surgical History: Reports: None GI Surgical History: Reports: Appendectomy Female Surgical History: Reports: Section Neurological Surgical History: Reports: None Musculoskeletal Surgical History: Reports: None Oncologic Surgical History: Reports: None Dermatological Surgical History: Reports: None Social & Family History - Family History Family Medical History: Noncontributory - Tobacco Use Smoking Status *Q: Former Smoker Used Tobacco, but Quit: No - Caffeine Use Caffeine Use: Reports: Coffee - Recreational Drug Use Recreational Drug Use: Yes Drug Use in Last 12 Months: Yes Recreational Drug Type: Reports: Methamphetamine Recreational Drug Use Frequency: Socially - Living Situation & Occupation Living situation: Reports: with Significant Other Occupation: Unemployed ED ROS GENERAL - Review of Systems Review Of Systems: Comprehensive ROS is negative, except as noted in HPI. ED EXAM, GENERAL - Physical Exam Exam: See Below Exam Limited By: No Limitations General Appearance: Alert, WD/WN, Anxious, Mild Distress Eye Exam: Bilateral Eye: EOMI, Normal Inspection, PERRL Ears: Normal External Exam, Normal Canal, Hearing Grossly Normal, Normal TMs Nose: Normal Inspection, Normal Mucosa, No Blood Throat/Mouth: Normal Inspection, Normal Lips, Normal Teeth, Normal Gums, Normal Oropharynx, Normal Voice, No Airway Compromise Head: Atraumatic, Normocephalic Neck: Normal Inspection, Supple, Non-Tender, Full Range of Motion Respiratory/Chest: No Respiratory Distress, Lungs Clear, Normal Breath Sounds, No Accessory Muscle Use, Chest Non-Tender Cardiovascular: Normal Peripheral Pulses, Regular Rate, Rhythm, No Edema, No Gallop, No JVD, No Murmur, No Rub GI/Abdominal: Normal Bowel Sounds, Soft, Non-Tender, No Organomegaly, No Distention, No Abnormal Bruit, No Mass (Female) Exam: Deferred Rectal (Female) Exam: Deferred Back Exam: Normal Inspection, Full Range of Motion, NT Extremities: Normal Inspection, Normal Range of Motion, Non-Tender, Normal Capillary Refill, No Pedal Edema Neurological: Alert, Oriented, CN II-XII Intact, Normal Cognition, Normal Gait, Normal Reflexes, No Motor/Sensory Deficits Psychiatric: Anxious Skin Exam: Warm, Dry, Intact, Normal Color, No Rash Lymphatic: No Adenopathy Course - Vital Signs Last Recorded V/S: Last Vital Signs Temp 36.6 C 08/30/19 02:08 Pulse 105 H 06/29/20 02:08 Resp 19 08/30/19 02:08 BP 154/91 H 08/30/19 02:08 Pulse Ox 99 08/30/19 02:08 - Orders/Labs/Meds Labs: Laboratory Tests 08/30/19 08/30/19 Range/Units 01:50 01:50 WBC 7.5 (5.0-10.0) 10^3/uL RBC 4.19 L (4.2-5.4) 10^6/uL Hgb 11.2 L (12.0-16.0) g/dL Hct 34.2 L (37.0-47.0) % MCV 81.6 (80-100) fL MCH 26.7 L (27.0-34.0) pg MCHC 32.7 L (33.0-35.0) g/dL Plt Count 304 (150-450) 10^3/uL Neut % (Auto) 50.3 (42.2-75.2) % Lymph % (Auto) 41.5 (20.5-50.1) % [place] % (Auto) 6.2 (2-8) % Eos % (Auto) 1.7 (1.0-3.0) % Baso % (Auto) 0.3 (0.0-1.0) % Sodium 130 L (136-145) mmol/L Potassium 4.5 (3.5-5.1) mmol/L Chloride 98 (98-107) mmol/L Carbon Dioxide 24 (21-32) mmol/L Anion Gap 12.5 (7-13) mEq/L BUN 23 H (7-18) mg/dL Creatinine 0.80 (0.55-1.02) mg/dL Est Cr Clr Drug Dosing 92.68 mL/min Estimated GFR (MDRD) > 60 BUN/Creatinine Ratio 28.8 (No establ ref range) Glucose 268 H (74-99) mg/dL Calcium 8.3 L (8.5-10.1) mg/dL Total Bilirubin 0.3 (0.2-1.0) mg/dL AST 22 (15-37) U/L ALT 26 (14-59) U/L Alkaline Phosphatase 116 (46-116) U/L Total Protein 6.3 L (6.4-8.2) g/dL Albumin 2.8 L (3.4-5.0) g/dL Globulin 3.5 Albumin/Globulin Ratio 0.80 Departure - Departure Time of Disposition: :20 Disposition: Home, Self-Care 01 Condition: Fair Clinical Impression: Anxiety, Withdrawal from methamphetamine - Discharge Information *PRESCRIPTION DRUG MONITORING PROGRAM REVIEWED*: Not Applicable *COPY OF PRESCRIPTION DRUG MONITORING REPORT IN PATIENT JIMENEZ: Not Applicable Instructions: Living With Anxiety, Finding Treatment for Addiction Forms: ED Department Discharge Care Plan Goals: The patient was advised of the examination and lab results during the visit. The patient was encouraged to continue to monitor her symptoms. The patient should follow-up with her primary care facility for continued evaluation and further management. If the patient has any additional symptoms or concerns, the patient should either return to the emergency department or visit her primary care facility. Sepsis Event Note (ED) - Evaluation Sepsis Screening Result: No Definite Risk - Focused Exam Vital Signs: Vital Signs Temp Pulse Resp BP Pulse Ox 08/30/19 02:08 36.6 C 105 H 19 154/91 H 99 08/30/19 01:38 36.4 C 105 H 18 176/114 H 100
[2019-08-30 02:09] VITALS: BP 154/91
[2019-08-30 02:13] LABS: ANION GAP 12.5 mEq/L (7-13); CHLORIDE,CL 98 mmol/L (98-107); SODIUM,NA 130 mmol/L (136-145)
== END 2019-08-30 02:27 | disposition home or self-care (01) ==
LOC: DL.ED 01:30
DX: F41.9 Anxiety disorder, unspecified (principal); F15.93 Other stimulant use, unspecified with withdrawal; E10.10 Type 1 diabetes mellitus with ketoacidosis without coma; E10.40 Type 1 diabetes mellitus with diabetic neuropathy, unspecified; E10.21 Type 1 diabetes mellitus with diabetic nephropathy; I11.0 Hypertensive heart disease with heart failure; I50.9 Heart failure, unspecified; Z79.899 Other long term (current) drug therapy; Z87.891 Personal history of nicotine dependence
CPT/HCPCS: 36415; 80053; 82962; 85025; 99284

== ENCOUNTER 2019-09-30 06:40 | Inpatient (IN) | payer MEDICAID, OTHER ==
[2019-09-30 08:14] LABS: ANION GAP 13.4 mEq/L (7-13); CHLORIDE,CL 78 mmol/L (98-107)
[2019-09-30 08:16] LABS: SODIUM,NA 114 mmol/L (136-145)
--- NOTE | 2019-09-30 08:53 | EDM.PDOC ---
ED HPI GENERAL MEDICAL PROBLEM - General Chief Complaint: Gastrointestinal Problem Stated Complaint: In by [facility] Time Seen by Provider: 09/30/19 07:25 Source of Information: Reports: Patient History Limitations: Reports: No Limitations - History of Present Illness INITIAL COMMENTS - FREE TEXT/NARRATIVE: This 34 yo female patient was brought to the ED by [facility] due to shortness of breath, chest pain and feeling "sick". The patient reports symptoms started about 2 hours prior to arrival in the ED just after the patient injected Meth. The patient reported to nursing staff that she was having chest pain, but denied chest pain on my examination. The patient reports she does not know of any recent COVID contacts. Onset: Today Duration: Hour(s): (2), Constant Quality: Reports: Other Severity: Moderate Improves with: Reports: None Worsens with: Reports: None Context: Reports: Other Associated Symptoms: Reports: Chest Pain, Shortness of Breath Chest Pain Score (Numeric/FACES): 10 - Related Data Allergies Allergy/AdvReac Type Severity Reaction Status Date / Time No Known Allergies Allergy Verified 09/30/19 06:46 Home Meds: Home Meds Cholecalciferol (Vitamin D3) [Vitamin D3] 400 units PO DAILY 10/07/16 [History] Insulin Aspart [NovoLOG] 30 unit SUBCUT TIDAC 10/07/16 [History] Insulin Detemir [Levemir] 20 unit SUBCUT QAM 10/07/16 [History] Lisinopril 5 mg PO DAILY 10/07/16 [History] Multivitamins,Therapeutic [Thera] 1 each PO BEDTIME #30 tablet 10/09/16 [Rx] Past Medical History HEENT History: Reports: Impaired Vision Cardiovascular History: Reports: Heart Failure, Hypertension, Other (See Below) Other Cardiovascular History: previous episode of DKA resulted in heart failure Gastrointestinal History: Reports: None Genitourinary History: Reports: Diabetic Nephropathy 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: Musculoskeletal History: Reports: None Neurological History: Reports: Neuropathy, Diabetic Psychiatric History: Reports: Addiction, Anxiety, Depression Endocrine/Metabolic History: Reports: Diabetes, Type I, IDDM Hematologic History: Reports: Anemia Immunologic History: Reports: None Oncologic (Cancer) History: Reports: None Dermatologic History: Reports: None - Infectious Disease History Infectious Disease History: Reports: None - Past Surgical History Cardiovascular Surgical History: Reports: None GI Surgical History: Reports: Appendectomy Female Surgical History: Reports: Section Neurological Surgical History: Reports: None Musculoskeletal Surgical History: Reports: None Oncologic Surgical History: Reports: None Dermatological Surgical History: Reports: None Social & Family History - Family History Family Medical History: Noncontributory - Tobacco Use Smoking Status *Q: Never Smoker - Caffeine Use Caffeine Use: Reports: Coffee - Recreational Drug Use Recreational Drug Use: Yes Recreational Drug Type: Reports: Methamphetamine Recreational Drug Use Frequency: Daily - Living Situation & Occupation Living situation: Reports: with Significant Other Occupation: Unemployed ED ROS GENERAL - Review of Systems Review Of Systems: Comprehensive ROS is negative, except as noted in HPI. ED EXAM, GI/ABD - Physical Exam Exam: See Below Exam Limited By: No Limitations General Appearance: Alert, WD/WN, Anxious, Moderate Distress Eyes: Bilateral: Normal Appearance, EOMI Ears: Normal External Exam, Normal Canal, Hearing Grossly Normal, Normal TMs Nose: Normal Inspection, Normal Mucosa, No Blood Throat/Mouth: Normal Inspection, Normal Lips, Normal Teeth, Normal Gums, Normal Oropharynx, Normal Voice, No Airway Compromise Head: Atraumatic, Normocephalic Neck: Normal Inspection, Supple, Non-Tender, Full Range of Motion Respiratory/Chest: No Respiratory Distress, Lungs Clear, Normal Breath Sounds, No Accessory Muscle Use, Chest Non-Tender Cardiovascular: Tachycardia GI/Abdominal Exam: Normal Bowel Sounds, Soft, Non-Tender, No Organomegaly, No Distention, No Abnormal Bruit, No Mass, Pelvis Stable (Female) Exam: Deferred Rectal (Female) Exam: Deferred Back Exam: Normal Inspection, Full Range of Motion, NT Extremities: Normal Inspection, Normal Range of Motion, Non-Tender, No Pedal Edema, Normal Capillary Refill, Other (tract alexandre) Neurological: Alert, Oriented Psychiatric: Normal Affect, Normal Mood Skin Exam: Warm, Dry, Intact, Normal Color, No Rash Lymphatic: No Adenopathy Course - Vital Signs Last Recorded V/S: Last Vital Signs Temp 36.2 C 09/30/19 07:25 Pulse 101 H 09/30/19 07:25 Resp 16 09/30/19 07:25 BP 129/96 H 09/30/19 07:25 Pulse Ox 100 09/30/19 07:25 - Orders/Labs/Meds Orders: Active Orders 24 hr Category Date Time Status Admission Diagnosis [ADT] Urgent ADT 09/30/19 08:45 Ordered Admission Status [Patient Status] [ADT] Routine ADT 09/30/19 08:45 Ordered EKG Documentation Completion [RC] STAT Care 09/30/19 07:10 Ordered Glucose [Blood Glucose Check, Bedside] [RC] ONETIME Care 09/30/19 07:11 Ordered Chest wo Cont [CT] Urgent Exams 09/30/19 08:20 Ordered CULTURE BLOOD [BC] Stat Lab 09/30/19 07:11 Ordered Labs: Laboratory Tests 09/30/19 09/30/19 09/30/19 Range/Units 07:00 07:01 07:01 WBC (5.0-10.0) 10^3/uL RBC (4.2-5.4) 10^6/uL Hgb (12.0-16.0) g/dL Hct (37.0-47.0) % MCV (80-100) fL MCH (27.0-34.0) pg MCHC (33.0-35.0) g/dL Plt Count (150-450) 10^3/uL Neut % (Auto) (42.2-75.2) % Lymph % (Auto) (20.5-50.1) % [place] % (Auto) (2-8) % Eos % (Auto) (1.0-3.0) % Baso % (Auto) (0.0-1.0) % Sodium (136-145) mmol/L Potassium (3.5-5.1) mmol/L Chloride (98-107) mmol/L Carbon Dioxide (21-32) mmol/L Anion Gap (7-13) mEq/L BUN (7-18) mg/dL Creatinine (0.55-1.02) mg/dL Est Cr Clr Drug Dosing mL/min Estimated GFR (MDRD) BUN/Creatinine Ratio (No establ ref range) Glucose (74-99) mg/dL POC Glucose (70-105) mg/dl Lactic Acid (0.4-2.0) mmol/L Calcium (8.5-10.1) mg/dL Total Bilirubin (0.2-1.0) mg/dL AST (15-37) U/L ALT (14-59) U/L Alkaline Phosphatase (46-116) U/L Troponin I (0.000-0.056) ng/mL Total Protein (6.4-8.2) g/dL Albumin (3.4-5.0) g/dL Globulin Albumin/Globulin Ratio Urine Color Yellow (YELLOW) Urine Appearance Slightly cloudy (CLEAR) Urine pH 7.0 (5.0-9.0) Ur Specific [place] 1.015 (1.005-1.030) Urine Protein 30 H (NEGATIVE) Urine Glucose (UA) 500 H (NEGATIVE) Urine Ketones Trace H (NEGATIVE) Urine Occult Blood Small H (NEGATIVE) Urine Nitrite Negative (NEGATIVE) Urine Bilirubin Negative (NEGATIVE) Urine Urobilinogen 0.2 (0.2-1.0) mg/dL Ur Leukocyte Esterase Negative (NEGATIVE) Urine RBC 5-10 H /HPF Urine WBC 0-5 (0-5/HPF) /HPF Ur Epithelial Cells Few (NOT SEEN) /HPF Urine Bacteria Rare (0-FEW/HPF) /HPF Urine Mucus Few H (NOT SEEN) /LPF Urine HCG, Qual Urine Opiates Screen Negative (NEGATIVE) Ur Oxycodone Screen Negative (NEGATIVE) Urine Methadone Screen Negative (NEGATIVE) Ur Barbiturates Screen Negative (NEGATIVE) U Tricyclic Antidepress Negative (NEGATIVE) Ur Phencyclidine Scrn Negative (NEGATIVE) Ur Amphetamine Screen Negative (NEGATIVE) U Methamphetamines Scrn Positive H (NEGATIVE) Urine MDMA Screen Negative (NEGATIVE) U Benzodiazepines Scrn Negative (NEGATIVE) Urine Cocaine Screen Negative (NEGATIVE) U Marijuana (THC) Screen Negative (NEGATIVE) Ethyl Alcohol (0) mg/dL COVID-19 (DA) Positive H (NEGATIVE) 09/30/19 09/30/19 09/30/19 Range/Units 07:01 07:28 07:28 WBC 4.1 L (5.0-10.0) 10^3/uL RBC 4.97 (4.2-5.4) 10^6/uL Hgb 13.5 D (12.0-16.0) g/dL Hct 37.9 (37.0-47.0) % MCV 76.3 L D (80-100) fL MCH 27.2 (27.0-34.0) pg MCHC 35.6 H (33.0-35.0) g/dL Plt Count 193 D (150-450) 10^3/uL Neut % (Auto) 60.5 (42.2-75.2) % Lymph % (Auto) 31.8 (20.5-50.1) % [place] % (Auto) 7.0 (2-8) % Eos % (Auto) 0.5 L (1.0-3.0) % Baso % (Auto) 0.2 (0.0-1.0) % Sodium 114 L* D (136-145) mmol/L Potassium 4.4 (3.5-5.1) mmol/L Chloride 78 L D (98-107) mmol/L Carbon Dioxide 27 (21-32) mmol/L Anion Gap 13.4 H (7-13) mEq/L BUN 20 H (7-18) mg/dL Creatinine 0.72 (0.55-1.02) mg/dL Est Cr Clr Drug Dosing 100.00 mL/min Estimated GFR (MDRD) > 60 BUN/Creatinine Ratio 27.8 (No establ ref range) Glucose 349 H (74-99) mg/dL POC Glucose (70-105) mg/dl Lactic Acid (0.4-2.0) mmol/L Calcium 8.4 L (8.5-10.1) mg/dL Total Bilirubin 0.6 (0.2-1.0) mg/dL AST 44 H (15-37) U/L ALT 46 (14-59) U/L Alkaline Phosphatase 115 (46-116) U/L Troponin I < 0.017 (0.000-0.056) ng/mL Total Protein 7.3 (6.4-8.2) g/dL Albumin 3.1 L (3.4-5.0) g/dL Globulin 4.2 Albumin/Globulin Ratio 0.74 Urine Color (YELLOW) Urine Appearance (CLEAR) Urine pH (5.0-9.0) Ur Specific [place] (1.005-1.030) Urine Protein (NEGATIVE) Urine Glucose (UA) (NEGATIVE) Urine Ketones (NEGATIVE) Urine Occult Blood (NEGATIVE) Urine Nitrite (NEGATIVE) Urine Bilirubin (NEGATIVE) Urine Urobilinogen (0.2-1.0) mg/dL Ur Leukocyte Esterase (NEGATIVE) Urine RBC /HPF Urine WBC (0-5/HPF) /HPF Ur Epithelial Cells (NOT SEEN) /HPF Urine Bacteria (0-FEW/HPF) /HPF Urine Mucus (NOT SEEN) /LPF Urine HCG, Qual Negative Urine Opiates Screen (NEGATIVE) Ur Oxycodone Screen (NEGATIVE) Urine Methadone Screen (NEGATIVE) Ur Barbiturates Screen (NEGATIVE) U Tricyclic Antidepress (NEGATIVE) Ur Phencyclidine Scrn (NEGATIVE) Ur Amphetamine Screen (NEGATIVE) U Methamphetamines Scrn (NEGATIVE) Urine MDMA Screen (NEGATIVE) U Benzodiazepines Scrn (NEGATIVE) Urine Cocaine Screen (NEGATIVE) U Marijuana (THC) Screen (NEGATIVE) Ethyl Alcohol < 3 (0) mg/dL COVID-19 (DA) (NEGATIVE) 09/30/19 09/30/19 Range/Units 07:28 07:38 WBC (5.0-10.0) 10^3/uL RBC (4.2-5.4) 10^6/uL Hgb (12.0-16.0) g/dL Hct (37.0-47.0) % MCV (80-100) fL MCH (27.0-34.0) pg MCHC (33.0-35.0) g/dL Plt Count (150-450) 10^3/uL Neut % (Auto) (42.2-75.2) % Lymph % (Auto) (20.5-50.1) % [place] % (Auto) (2-8) % Eos % (Auto) (1.0-3.0) % Baso % (Auto) (0.0-1.0) % Sodium (136-145) mmol/L Potassium (3.5-5.1) mmol/L Chloride (98-107) mmol/L Carbon Dioxide (21-32) mmol/L Anion Gap (7-13) mEq/L BUN (7-18) mg/dL Creatinine (0.55-1.02) mg/dL Est Cr Clr Drug Dosing mL/min Estimated GFR (MDRD) BUN/Creatinine Ratio (No establ ref range) Glucose (74-99) mg/dL POC Glucose 366 H (70-105) mg/dl Lactic Acid 1.5 (0.4-2.0) mmol/L Calcium (8.5-10.1) mg/dL Total Bilirubin (0.2-1.0) mg/dL AST (15-37) U/L ALT (14-59) U/L Alkaline Phosphatase (46-116) U/L Troponin I (0.000-0.056) ng/mL Total Protein (6.4-8.2) g/dL Albumin (3.4-5.0) g/dL Globulin Albumin/Globulin Ratio Urine Color (YELLOW) Urine Appearance (CLEAR) Urine pH (5.0-9.0) Ur Specific [place] (1.005-1.030) Urine Protein (NEGATIVE) Urine Glucose (UA) (NEGATIVE) Urine Ketones (NEGATIVE) Urine Occult Blood (NEGATIVE) Urine Nitrite (NEGATIVE) Urine Bilirubin (NEGATIVE) Urine Urobilinogen (0.2-1.0) mg/dL Ur Leukocyte Esterase (NEGATIVE) Urine RBC /HPF Urine WBC (0-5/HPF) /HPF Ur Epithelial Cells (NOT SEEN) /HPF Urine Bacteria (0-FEW/HPF) /HPF Urine Mucus (NOT SEEN) /LPF Urine HCG, Qual Urine Opiates Screen (NEGATIVE) Ur Oxycodone Screen (NEGATIVE) Urine Methadone Screen (NEGATIVE) Ur Barbiturates Screen (NEGATIVE) U Tricyclic Antidepress (NEGATIVE) Ur Phencyclidine Scrn (NEGATIVE) Ur Amphetamine Screen (NEGATIVE) U Methamphetamines Scrn (NEGATIVE) Urine MDMA Screen (NEGATIVE) U Benzodiazepines Scrn (NEGATIVE) Urine Cocaine Screen (NEGATIVE) U Marijuana (THC) Screen (NEGATIVE) Ethyl Alcohol (0) mg/dL COVID-19 (DA) (NEGATIVE) Departure - Departure Time of Disposition: 08:51 Disposition: Admitted As Inpatient 67 Condition: Fair Clinical Impression: Hyponatremia, COVID-19, Methamphetamine abuse - Discharge Information *PRESCRIPTION DRUG MONITORING PROGRAM REVIEWED*: Not Applicable *COPY OF PRESCRIPTION DRUG MONITORING REPORT IN PATIENT JIMENEZ: Not Applicable Care Plan Goals: Discussed the patient's history, examination, lab and EKG results with Dr. Ji. Dr. Ji accepted the patient for continued evaluation and further management as an inpatient at [facility] in [place]. The patient's CT of the Chest was pending at the time of admission. Sepsis Event Note (ED) - Evaluation Sepsis Screening Result: No Definite Risk - Focused Exam Vital Signs: Vital Signs Temp Pulse Resp BP Pulse Ox 09/30/19 07:25 36.2 C 101 H 16 129/96 H 100 09/30/19 06:44 35.6 C L 89 19 137/97 H 97 - My Orders Last 24 Hours: My Active Orders 09/30/19 07:10 EKG Documentation Completion [RC] STAT 09/30/19 07:11 Glucose [Blood Glucose Check, Bedside] [RC] ONETIME CULTURE BLOOD [BC] Stat 09/30/19 08:20 Chest wo Cont [CT] Urgent 09/30/19 08:45 Admission Diagnosis [ADT] Urgent Admission Status [Patient Status] [ADT] Routine - Assessment/Plan Last 24 Hours: My Active Orders 09/30/19 07:10 EKG Documentation Completion [RC] STAT 09/30/19 07:11 Glucose [Blood Glucose Check, Bedside] [RC] ONETIME CULTURE BLOOD [BC] Stat 09/30/19 08:20 Chest wo Cont [CT] Urgent 09/30/19 08:45 Admission Diagnosis [ADT] Urgent Admission Status [Patient Status] [ADT] Routine
--- NOTE | 2019-09-30 09:19 | CT ---
PROCEDURE INFORMATION: Exam: CT Chest Without Contrast Exam date and time: 09/30/2019 8:45 AM Age: 34 years old Clinical indication: Difficulty breathing; Covid-19 + TECHNIQUE: Imaging protocol: Computed tomography of the chest without contrast. Radiation optimization: All CT scans at this facility use at least one of these dose optimization techniques: automated exposure control; mA and/or kV adjustment per patient size (includes targeted exams where dose is matched to clinical indication); or iterative reconstruction. COMPARISON: No relevant prior studies available. FINDINGS: Lungs: There are multiple, bilateral, peripheral, somewhat rounded or oval-shaped ground-glass opacities in both lungs consistent with the history. No focal dense lung consolidation or ?crazy paving pattern?. Pleural space: No pleural effusion or pneumothorax. Heart: The heart is not enlarged. No pericardial effusion. Aorta: No abdominal aortic aneurysm. No iliac or common femoral artery aneurysm. Lymph nodes: No pathologically enlarged lymph nodes. Bones/joints: No acute osseous abnormality. Soft tissues: No acute soft tissue abnormality. IMPRESSION: Findings compatible with COVID-19 pneumonia.
[2019-09-30] MEDS ORDERED: Albuterol 6.7 GM Inhaler INH PRN (09:26)
[2019-09-30] MEDS ORDERED: NS + KCl 20mEq/L 1,000 ML IV SCH (09:30)
[2019-09-30] MEDS ORDERED: LORazepam 1 MG Tab PO PRN ×2 (10:03→17:41)
[2019-09-30] MEDS ORDERED: LORazepam 2 MG/ML SDV IVPUSH PRN ×2 (10:04→13:30)
[2019-09-30] MEDS ORDERED: Insulin Glarg,Human.Rec.Analog 100 Unit/ML SUBCUT SCH (10:30)
[2019-09-30] MEDS ORDERED: Insulin Lispro 100 Units/ML 3 ML Vial SUBCUT SCH (11:00)
[2019-09-30] MEDS ORDERED: Acetaminophen/HYDROcodone 325-10 MG Tab PO PRN (11:27)
[2019-09-30] MEDS ORDERED: Ibuprofen 600 MG Tab PO PRN (11:27)
[2019-09-30] MEDS ORDERED: Sodium Chloride 0.9% 10 ML Syringe FLUSH PRN (11:27)
[2019-09-30] MEDS ORDERED: Ondansetron 4 MG Tab.DIS PO PRN (11:27)
[2019-09-30] MEDS ORDERED: Ondansetron 4 MG/2 ML SDV IVPUSH PRN (11:27)
[2019-09-30] MEDS ORDERED: Acetaminophen/HYDROcodone 325-5 MG Tab PO PRN (11:46)
[2019-09-30 13:04] LABS: ANION GAP 15.1 mEq/L (7-13); CHLORIDE,CL 84 mmol/L (98-107); SODIUM,NA 121 mmol/L (136-145)
[2019-09-30 13:08] LABS: PTT,PARTIAL THROMBOPLSTIN TIME 25.2 SEC (22.0-34.0)
--- NOTE | 2019-09-30 13:09 | PCM.HP ---
H&P History of Present Illness - General Date of Service: 09/30/19 Admit Problem/Dx: Admission Diagnosis/Problem Admission Diagnosis/Problem Hyponatremia Source of Information: Patient - History of Present Illness Initial Comments - Free Text/Narative: 34-year-old lady with a history of alcohol, injected meth use. Has a history of diabetes with episode of DKA. Has a history of depression, hypertension. The patient presented to the emergency room with shortness of breath, chest pain. The patient has been coughing for about a week. No associated fever. No associated chest pain. No known sick contact. No known COVID-19 contact. The patient presented with shortness of breath chest pain following injecting the methamphetamine. In the emergency room the patient was noted to have leukopenia, Covid 19 positive screen. She was very anxious. No diarrhea, no abdominal pain. Chest Pain Score (Numeric/FACES): 10 - Related Data Allergies/Adverse Reactions: Allergies Allergy/AdvReac Type Severity Reaction Status Date / Time No Known Allergies Allergy Verified 09/30/19 06:46 Home Medications: Home Meds Insulin Aspart [NovoLOG] 10 unit SUBCUT QIDACANDBED 10/07/16 [History] Insulin Detemir [Levemir] 32 unit SUBCUT QAM 10/07/16 [History] Multivitamins,Therapeutic [Thera] 1 each PO BEDTIME #30 tablet 10/09/16 [Rx] DULoxetine HCl [Duloxetine HCl] 30 mg PO DAILY 09/30/19 [History] Dextrose [Glucose] 4 gm PO ASDIRECTED 09/30/19 [History] Lidocaine 5% [Lidoderm 5%] 1 patch TOP DAILY 09/30/19 [History] Rosuvastatin Calcium 20 mg PO BEDTIME 09/30/19 [History] hydroCHLOROthiazide [Hydrochlorothiazide] 12.5 mg PO DAILY 09/30/19 [History] lisinopriL [Lisinopril] 40 mg PO DAILY 09/30/19 [History] metFORMIN HCl [Metformin HCl] 1,000 mg PO BID 09/30/19 [History] Past Medical History HEENT History: Reports: Impaired Vision Other HEENT History: wears glasses Cardiovascular History: Reports: Heart Failure, Hypertension, Other (See Below) Other Cardiovascular History: previous episode of DKA resulted in heart failure Respiratory History: Reports: None Gastrointestinal History: Reports: None Genitourinary History: Reports: Diabetic Nephropathy MANAGER MEDIA History: Reports: Musculoskeletal History: Reports: None Neurological History: Reports: Neuropathy, Diabetic Psychiatric History: Reports: Addiction, Anxiety, Depression Endocrine/Metabolic History: Reports: Diabetes, Type I, IDDM Hematologic History: Reports: Anemia Immunologic History: Reports: None Oncologic (Cancer) History: Reports: None Dermatologic History: Reports: None - Infectious Disease History Infectious Disease History: Reports: Other (See Below) Other Infectious Disease History: COVID - Past Surgical History Head Surgeries/Procedures: Reports: None Cardiovascular Surgical History: Reports: None GI Surgical History: Reports: Appendectomy Female Surgical History: Reports: Section Neurological Surgical History: Reports: None Musculoskeletal Surgical History: Reports: None Oncologic Surgical History: Reports: None Dermatological Surgical History: Reports: None Social & Family History - Family History Family Medical History: Noncontributory - Tobacco Use Smoking Status *Q: Light Tobacco Smoker Years of Tobacco use: 21 Packs/Tins Daily: 0.5 - Caffeine Use Caffeine Use: Reports: Energy Drinks, Soda - Recreational Drug Use Recreational Drug Use: Yes Recreational Drug Type: Reports: Methamphetamine Recreational Drug Use Frequency: Daily - Living Situation & Occupation Living situation: Reports: with Significant Other Occupation: Unemployed H&P Review of Systems - Review of Systems: Review Of Systems: See Below General: Denies: Fever HEENT: Denies: Sore Throat Pulmonary: Reports: Shortness of Breath, Cough. Denies: Wheezing, Sputum, Hemoptysis Cardiovascular: Reports: Chest Pain (Resolved by now) Gastrointestinal: Denies: Abdominal Pain, Diarrhea Genitourinary: Denies: Dysuria Psychiatric: Denies: Confusion Exam - Exam Exam: See Below - Vital Signs Vital Signs: Last Vital Signs Temp 98.6 F 09/30/19 11:27 Pulse 93 09/30/19 11:27 Resp 20 09/30/19 11:27 BP 117/76 09/30/19 11:27 Pulse Ox 100 09/30/19 11:27 Weight: 123 lb 12.8 oz - Exam Quality Assessment: Supplemental Oxygen (0.5 L/m) General: Alert, Oriented Neck: Supple Lungs: Clear to Auscultation, Normal Respiratory Effort Cardiovascular: Regular Rate, Regular Rhythm GI/Abdominal Exam: Normal Bowel Sounds, Soft, Non-Tender Extremities: No Pedal Edema - Patient Data Lab Results Last 24 hrs: Laboratory Results - last 24 hr 09/30/19 09/30/19 09/30/19 Range/Units 07:00 07:01 07:01 WBC (5.0-10.0) 10^3/uL RBC (4.2-5.4) 10^6/uL Hgb (12.0-16.0) g/dL Hct (37.0-47.0) % MCV (80-100) fL MCH (27.0-34.0) pg MCHC (33.0-35.0) g/dL Plt Count (150-450) 10^3/uL Neut % (Auto) (42.2-75.2) % Lymph % (Auto) (20.5-50.1) % Phillips % (Auto) (2-8) % Eos % (Auto) (1.0-3.0) % Baso % (Auto) (0.0-1.0) % Sodium (136-145) mmol/L Potassium (3.5-5.1) mmol/L Chloride (98-107) mmol/L Carbon Dioxide (21-32) mmol/L Anion Gap (7-13) mEq/L BUN (7-18) mg/dL Creatinine (0.55-1.02) mg/dL Est Cr Clr Drug Dosing mL/min Estimated GFR (MDRD) BUN/Creatinine Ratio (No establ ref range) Glucose (74-99) mg/dL POC Glucose (70-105) mg/dl Lactic Acid (0.4-2.0) mmol/L Calcium (8.5-10.1) mg/dL Total Bilirubin (0.2-1.0) mg/dL AST (15-37) U/L ALT (14-59) U/L Alkaline Phosphatase (46-116) U/L Lactate Dehydrogenase (81-234) U/L Troponin I (0.000-0.056) ng/mL C-Reactive Protein (0.0-0.9) mg/dL Total Protein (6.4-8.2) g/dL Albumin (3.4-5.0) g/dL Globulin Albumin/Globulin Ratio Urine Color Yellow (YELLOW) Urine Appearance Slightly cloudy (CLEAR) Urine pH 7.0 (5.0-9.0) Ur Specific [place] 1.015 (1.005-1.030) Urine Protein 30 H (NEGATIVE) Urine Glucose (UA) 500 H (NEGATIVE) Urine Ketones Trace H (NEGATIVE) Urine Occult Blood Small H (NEGATIVE) Urine Nitrite Negative (NEGATIVE) Urine Bilirubin Negative (NEGATIVE) Urine Urobilinogen 0.2 (0.2-1.0) mg/dL Ur Leukocyte Esterase Negative (NEGATIVE) Urine RBC 5-10 H /HPF Urine WBC 0-5 (0-5/HPF) /HPF Ur Epithelial Cells Few (NOT SEEN) /HPF Urine Bacteria Rare (0-FEW/HPF) /HPF Urine Mucus Few H (NOT SEEN) /LPF Urine HCG, Qual Urine Opiates Screen Negative (NEGATIVE) Ur Oxycodone Screen Negative (NEGATIVE) Urine Methadone Screen Negative (NEGATIVE) Ur Barbiturates Screen Negative (NEGATIVE) U Tricyclic Antidepress Negative (NEGATIVE) Ur Phencyclidine Scrn Negative (NEGATIVE) Ur Amphetamine Screen Negative (NEGATIVE) U Methamphetamines Scrn Positive H (NEGATIVE) Urine MDMA Screen Negative (NEGATIVE) U Benzodiazepines Scrn Negative (NEGATIVE) Urine Cocaine Screen Negative (NEGATIVE) U Marijuana (THC) Screen Negative (NEGATIVE) Ethyl Alcohol (0) mg/dL COVID-19 (DA) Positive H (NEGATIVE) 09/30/19 09/30/19 09/30/19 Range/Units 07:01 07:28 07:28 WBC 4.1 L (5.0-10.0) 10^3/uL RBC 4.97 (4.2-5.4) 10^6/uL Hgb 13.5 D (12.0-16.0) g/dL Hct 37.9 (37.0-47.0) % MCV 76.3 L D (80-100) fL MCH 27.2 (27.0-34.0) pg MCHC 35.6 H (33.0-35.0) g/dL Plt Count 193 D (150-450) 10^3/uL Neut % (Auto) 60.5 (42.2-75.2) % Lymph % (Auto) 31.8 (20.5-50.1) % Phillips % (Auto) 7.0 (2-8) % Eos % (Auto) 0.5 L (1.0-3.0) % Baso % (Auto) 0.2 (0.0-1.0) % Sodium 114 L* D (136-145) mmol/L Potassium 4.4 (3.5-5.1) mmol/L Chloride 78 L D (98-107) mmol/L Carbon Dioxide 27 (21-32) mmol/L Anion Gap 13.4 H (7-13) mEq/L BUN 20 H (7-18) mg/dL Creatinine 0.72 (0.55-1.02) mg/dL Est Cr Clr Drug Dosing 100.00 mL/min Estimated GFR (MDRD) > 60 BUN/Creatinine Ratio 27.8 (No establ ref range) Glucose 349 H (74-99) mg/dL POC Glucose (70-105) mg/dl Lactic Acid (0.4-2.0) mmol/L Calcium 8.4 L (8.5-10.1) mg/dL Total Bilirubin 0.6 (0.2-1.0) mg/dL AST 44 H (15-37) U/L ALT 46 (14-59) U/L Alkaline Phosphatase 115 (46-116) U/L Lactate Dehydrogenase (81-234) U/L Troponin I < 0.017 (0.000-0.056) ng/mL C-Reactive Protein (0.0-0.9) mg/dL Total Protein 7.3 (6.4-8.2) g/dL Albumin 3.1 L (3.4-5.0) g/dL Globulin 4.2 Albumin/Globulin Ratio 0.74 Urine Color (YELLOW) Urine Appearance (CLEAR) Urine pH (5.0-9.0) Ur Specific [place] (1.005-1.030) Urine Protein (NEGATIVE) Urine Glucose (UA) (NEGATIVE) Urine Ketones (NEGATIVE) Urine Occult Blood (NEGATIVE) Urine Nitrite (NEGATIVE) Urine Bilirubin (NEGATIVE) Urine Urobilinogen (0.2-1.0) mg/dL Ur Leukocyte Esterase (NEGATIVE) Urine RBC /HPF Urine WBC (0-5/HPF) /HPF Ur Epithelial Cells (NOT SEEN) /HPF Urine Bacteria (0-FEW/HPF) /HPF Urine Mucus (NOT SEEN) /LPF Urine HCG, Qual Negative Urine Opiates Screen (NEGATIVE) Ur Oxycodone Screen (NEGATIVE) Urine Methadone Screen (NEGATIVE) Ur Barbiturates Screen (NEGATIVE) U Tricyclic Antidepress (NEGATIVE) Ur Phencyclidine Scrn (NEGATIVE) Ur Amphetamine Screen (NEGATIVE) U Methamphetamines Scrn (NEGATIVE) Urine MDMA Screen (NEGATIVE) U Benzodiazepines Scrn (NEGATIVE) Urine Cocaine Screen (NEGATIVE) U Marijuana (THC) Screen (NEGATIVE) Ethyl Alcohol < 3 (0) mg/dL COVID-19 (DA) (NEGATIVE) 09/30/19 09/30/19 09/30/19 Range/Units 07:28 07:38 11:39 WBC (5.0-10.0) 10^3/uL RBC (4.2-5.4) 10^6/uL Hgb (12.0-16.0) g/dL Hct (37.0-47.0) % MCV (80-100) fL MCH (27.0-34.0) pg MCHC (33.0-35.0) g/dL Plt Count (150-450) 10^3/uL Neut % (Auto) (42.2-75.2) % Lymph % (Auto) (20.5-50.1) % Phillips % (Auto) (2-8) % Eos % (Auto) (1.0-3.0) % Baso % (Auto) (0.0-1.0) % Sodium (136-145) mmol/L Potassium (3.5-5.1) mmol/L Chloride (98-107) mmol/L Carbon Dioxide (21-32) mmol/L Anion Gap (7-13) mEq/L BUN (7-18) mg/dL Creatinine (0.55-1.02) mg/dL Est Cr Clr Drug Dosing mL/min Estimated GFR (MDRD) BUN/Creatinine Ratio (No establ ref range) Glucose (74-99) mg/dL POC Glucose 366 H 376 H (70-105) mg/dl Lactic Acid 1.5 (0.4-2.0) mmol/L Calcium (8.5-10.1) mg/dL Total Bilirubin (0.2-1.0) mg/dL AST (15-37) U/L ALT (14-59) U/L Alkaline Phosphatase (46-116) U/L Lactate Dehydrogenase (81-234) U/L Troponin I (0.000-0.056) ng/mL C-Reactive Protein (0.0-0.9) mg/dL Total Protein (6.4-8.2) g/dL Albumin (3.4-5.0) g/dL Globulin Albumin/Globulin Ratio Urine Color (YELLOW) Urine Appearance (CLEAR) Urine pH (5.0-9.0) Ur Specific [place] (1.005-1.030) Urine Protein (NEGATIVE) Urine Glucose (UA) (NEGATIVE) Urine Ketones (NEGATIVE) Urine Occult Blood (NEGATIVE) Urine Nitrite (NEGATIVE) Urine Bilirubin (NEGATIVE) Urine Urobilinogen (0.2-1.0) mg/dL Ur Leukocyte Esterase (NEGATIVE) Urine RBC /HPF Urine WBC (0-5/HPF) /HPF Ur Epithelial Cells (NOT SEEN) /HPF Urine Bacteria (0-FEW/HPF) /HPF Urine Mucus (NOT SEEN) /LPF Urine HCG, Qual Urine Opiates Screen (NEGATIVE) Ur Oxycodone Screen (NEGATIVE) Urine Methadone Screen (NEGATIVE) Ur Barbiturates Screen (NEGATIVE) U Tricyclic Antidepress (NEGATIVE) Ur Phencyclidine Scrn (NEGATIVE) Ur Amphetamine Screen (NEGATIVE) U Methamphetamines Scrn (NEGATIVE) Urine MDMA Screen (NEGATIVE) U Benzodiazepines Scrn (NEGATIVE) Urine Cocaine Screen (NEGATIVE) U Marijuana (THC) Screen (NEGATIVE) Ethyl Alcohol (0) mg/dL COVID-19 (DA) (NEGATIVE) 09/29/ Range/Units 12:30 WBC (5.0-10.0) 10^3/uL RBC (4.2-5.4) 10^6/uL Hgb (12.0-16.0) g/dL Hct (37.0-47.0) % MCV (80-100) fL MCH (27.0-34.0) pg MCHC (33.0-35.0) g/dL Plt Count (150-450) 10^3/uL Neut % (Auto) (42.2-75.2) % Lymph % (Auto) (20.5-50.1) % Phillips % (Auto) (2-8) % Eos % (Auto) (1.0-3.0) % Baso % (Auto) (0.0-1.0) % Sodium 121 L (136-145) mmol/L Potassium 4.1 (3.5-5.1) mmol/L Chloride 84 L (98-107) mmol/L Carbon Dioxide 26 (21-32) mmol/L Anion Gap 15.1 H (7-13) mEq/L BUN 17 (7-18) mg/dL Creatinine 0.77 (0.55-1.02) mg/dL Est Cr Clr Drug Dosing 92.12 mL/min Estimated GFR (MDRD) > 60 BUN/Creatinine Ratio (No establ ref range) Glucose 366 H (74-99) mg/dL POC Glucose (70-105) mg/dl Lactic Acid (0.4-2.0) mmol/L Calcium 8.3 L (8.5-10.1) mg/dL Total Bilirubin (0.2-1.0) mg/dL AST (15-37) U/L ALT (14-59) U/L Alkaline Phosphatase (46-116) U/L Lactate Dehydrogenase 243 H (81-234) U/L Troponin I < 0.017 (0.000-0.056) ng/mL C-Reactive Protein 1.6 H (0.0-0.9) mg/dL Total Protein (6.4-8.2) g/dL Albumin (3.4-5.0) g/dL Globulin Albumin/Globulin Ratio Urine Color (YELLOW) Urine Appearance (CLEAR) Urine pH (5.0-9.0) Ur Specific [place] (1.005-1.030) Urine Protein (NEGATIVE) Urine Glucose (UA) (NEGATIVE) Urine Ketones (NEGATIVE) Urine Occult Blood (NEGATIVE) Urine Nitrite (NEGATIVE) Urine Bilirubin (NEGATIVE) Urine Urobilinogen (0.2-1.0) mg/dL Ur Leukocyte Esterase (NEGATIVE) Urine RBC /HPF Urine WBC (0-5/HPF) /HPF Ur Epithelial Cells (NOT SEEN) /HPF Urine Bacteria (0-FEW/HPF) /HPF Urine Mucus (NOT SEEN) /LPF Urine HCG, Qual Urine Opiates Screen (NEGATIVE) Ur Oxycodone Screen (NEGATIVE) Urine Methadone Screen (NEGATIVE) Ur Barbiturates Screen (NEGATIVE) U Tricyclic Antidepress (NEGATIVE) Ur Phencyclidine Scrn (NEGATIVE) Ur Amphetamine Screen (NEGATIVE) U Methamphetamines Scrn (NEGATIVE) Urine MDMA Screen (NEGATIVE) U Benzodiazepines Scrn (NEGATIVE) Urine Cocaine Screen (NEGATIVE) U Marijuana (THC) Screen (NEGATIVE) Ethyl Alcohol (0) mg/dL COVID-19 (DA) (NEGATIVE) Result Diagrams: 09/30/19 07:28 09/30/19 12:30 - Problem List (1) HTN (hypertension) SNOMED Code(s): 67270231 ICD Code: I10 - ESSENTIAL (PRIMARY) HYPERTENSION Status: Acute Current Visit: Yes (2) COVID-19 SNOMED Code(s): 114339248 ICD Code: U07.1 - COVID-19 Status: Acute Current Visit: Yes (3) Hyponatremia SNOMED Code(s): 02929220 ICD Code: E87.1 - HYPO-OSMOLALITY AND HYPONATREMIA Status: Acute Current Visit: Yes (4) Methamphetamine abuse SNOMED Code(s): 026982240 ICD Code: F15.10 - OTHER STIMULANT ABUSE, UNCOMPLICATED Status: Acute Current Visit: Yes (5) Anxiety SNOMED Code(s): 47388753 ICD Code: F41.9 - ANXIETY DISORDER, UNSPECIFIED Status: Acute Current Visit: No (6) Diabetes mellitus type 1 SNOMED Code(s): 39882355 ICD Code: E10.9 - TYPE 1 DIABETES MELLITUS WITHOUT COMPLICATIONS Status: Acute Current Visit: No Problem List Initiated/Reviewed/Updated: Yes Orders Last 24hrs: Active Orders 24 hr Category Date Time Status Admission Diagnosis [ADT] Urgent ADT 09/30/19 08:45 Ordered Admission Status [Patient Status] [ADT] Routine ADT 09/30/19 08:45 Active Antiembolic Devices [RC] 10,22 Care 09/30/19 11:28 Active Glucose [Blood Glucose Check, Bedside] [RC] QIDACANDBED Care 09/30/19 11:53 Active Oxygen Therapy [RC] PRN Care 09/30/19 11:27 Active Peripheral IV Care [RC] , Care 09/30/19 11:29 Active RT Post Treatment Assessment [RC] Click to Edit Care 09/30/19 09:27 Active RT Pre-Treatment Assessment [RC] Click to Edit Care 09/30/19 09:27 Active Up With Assistance [RC] ASDIRECTED Care 09/30/19 11:27 Active VTE/DVT Education [RC] PER UNIT ROUTINE Care 09/30/19 11:27 Active Vital Signs [RC] Q4H Care 09/30/19 11:27 Active Consistent Carbohydrate Diet [DIET] Diet 09/30/19 Lunch Active BASIC METABOLIC PANEL,BMP [CHEM] AM Lab 10/01/19 05:15 Ordered BASIC METABOLIC PANEL,BMP [CHEM] Q4H Lab 09/30/19 15:54 Ordered BASIC METABOLIC PANEL,BMP [CHEM] Q4H Lab 09/30/19 19:54 Ordered CBC WITH AUTO DIFF [HEME] AM Lab 10/01/19 05:15 Ordered CULTURE BLOOD [BC] Stat Lab 09/30/19 07:28 Received D-DIMER QUANTITATIVE [COAG] Routine Lab 09/30/19 12:30 Received ESR [SEDIMENTATION RATE MANUAL] [HEME] Routine Lab 09/30/19 12:30 Received FERRITIN [CHEM] Routine Lab 09/30/19 12:30 Received INR,PT,PROTHROMBIN TIME [COAG] Routine Lab 09/30/19 12:30 Received PROCALCITONIN [REF] Routine Lab 09/30/19 12:30 Received PTT,PARTIAL THROMBOPLSTIN TIME [COAG] Routine Lab 09/30/19 12:30 Received Acetaminophen [Tylenol] Med 09/30/19 11:27 Active 650 mg PO Q4H PRN Acetaminophen/HYDROcodone [[place] 325-5 MG] Med 09/30/19 11:46 Active 1 tab PO Q4H PRN Albuterol [Proventil HFA] Med 09/30/19 09:26 Active 0 gm INH Q4HR PRN Enoxaparin [Lovenox] Med 09/30/19 12:00 Active 40 mg SUBCUT DAILY Ibuprofen [Motrin] Med 09/30/19 11:27 Active 600 mg PO Q6H PRN Insulin Glarg,Human.Rec.Analog [LantUS] Med 09/30/19 10:30 Active 20 unit SUBCUT DAILY Insulin Lispro [HumaLOG] Med 09/30/19 11:00 Active 30 unit SUBCUT TIDAC Insulin Lispro [HumaLOG] Med 09/30/19 12:00 Active See Protocol SUBCUT QIDACANDBED LORazepam [Ativan] Med 09/30/19 10:04 Active 0 mg IVPUSH TITRATE PRN LORazepam [Ativan] Med 09/30/19 10:03 Active 0 mg PO TITRATE PRN Multivitamins,Therapeutic [Thera] Med 09/30/19 21:00 Active 1 each PO BEDTIME NS + KCl 20mEq/L [Normal Saline with 20 mEq KCl] 1,000 Med 09/30/19 09:30 Active ml IV ASDIRECTED Ondansetron [Zofran ODT] Med 09/30/19 11:27 Active 4 mg PO Q4H PRN Ondansetron [Zofran] Med 09/30/19 11:27 Active 4 mg IVPUSH Q6H PRN Sodium Chloride 0.9% [Saline Flush] Med 09/30/19 11:27 Active 10 ml FLUSH ASDIRECTED PRN Zolpidem [Ambien] Med 09/30/19 21:00 Active 5 mg PO BEDTIME PRN lisinopriL [Prinivil] Med 10/01/19 09:00 Active 5 mg PO DAILY Antiembolic Hose [OM.PC] Per Unit Routine Oth 09/30/19 11:28 Ordered Peripheral IV Insertion Adult [OM.PC] Routine Oth 09/30/19 11:27 Ordered Resuscitation Status Routine Resus Stat 09/30/19 11:27 Ordered Medication Orders Acetaminophen (Tylenol) 650 mg PO Q4H PRN PRN Reason: Pain (Mild 1-3)/fever Hydrocodone Bitart/Acetaminophen ([place] 325-5 Mg) 1 tab PO Q4H PRN PRN Reason: Pain (severe 7-10) Albuterol (Proventil Hfa) 0 gm INH Q4HR PRN PRN Reason: Wheezing, sob Enoxaparin Sodium (Lovenox) 40 mg SUBCUT DAILY [facility] Potassium Chloride/Sodium Chloride (Normal Saline With 20 Meq Kcl) 1,000 mls @ 100 mls/hr IV ASDIRECTED [facility] Last Admin: 09/30/19 11:39 Dose: 100 mls/hr Documented by: AUGUSTUS Ibuprofen (Motrin) 600 mg PO Q6H PRN PRN Reason: Pain (mild 1-3) Insulin Glargine (Lantus) 20 unit SUBCUT DAILY [facility] Last Admin: 09/30/19 11:42 Dose: 20 units Documented by: AUGUSTUS Insulin Human Lispro (Humalog) 30 unit SUBCUT TIDAC [facility] Last Admin: 09/30/19 11:44 Dose: 30 units Documented by: AUGUSTUS Insulin Human Lispro (Humalog) 0 unit SUBCUT QIDACANDBED [facility]; Protocol Lisinopril (Prinivil) 5 mg PO DAILY [facility] Lorazepam (Ativan) 0 mg PO TITRATE PRN PRN Reason: Anxiety Last Admin: 09/30/19 11:41 Dose: 1 mg Documented by: AUGUSTUS Lorazepam (Ativan) 0 mg IVPUSH TITRATE PRN PRN Reason: withdrawal, severe anxiety Multivitamins (Thera) 1 each PO BEDTIME [facility] Ondansetron HCl (Zofran Odt) 4 mg PO Q4H PRN PRN Reason: nausea, able to take PO Ondansetron HCl (Zofran) 4 mg IVPUSH Q6H PRN PRN Reason: Nausea/Vomiting Sodium Chloride (Saline Flush) 10 ml FLUSH ASDIRECTED PRN PRN Reason: Keep Vein Open Zolpidem Tartrate (Ambien) 5 mg PO BEDTIME PRN PRN Reason: Sleep Assessment/Plan Comment:: 34-year-old with a history of diabetes, hypertension, onset the mean and alcohol use history. Presented with shortness of breath and chest pain quickly after THE coming IV injection. Shortness of breath might relate to pulmonary embolism during amphetamine injection CT did not show significant PE, infarct CT was more compatible with Coreg with 19 pneumonia Covid 19 pneumonia With elevated CRP, normal d-dimer, leukopenia In a patient with risk factors of diabetes, hypertension The patient is hematemesis stable, oxygen saturation is good on room air. We'll closely monitor and provide symptomatic treatment Use albuterol as needed for shortness of breath Hyponatremia The initial sodium should be corrected due to hyperglycemia Corrected sodiums in the 120 range Started the patient on normal saline hydration With that the patient's sodium critically, too quickly increased We will stop IV fluids Follow sodium every 4 hours We will stop hydrochlorothiazide Control diabetes Uncontrolled diabetes Continue long-acting insulin in the morning Give supplemental insulin as needed Hypertension Continue DEB inhibitor Hold hydrochlorothiazide Monitor and adjust DVT prophylaxis will be important in the setting of Covid 19 pneumonia The patient is currently hospitalized but not requiring ICU treatment Will treat with Lovenox 40 mg daily
[2019-09-30] MEDS: Insulin Lispro 100 Units/ML 3 ML Vial SUBCUT SCH ×5 (13:38→20:56)
[2019-09-30] MEDS: Enoxaparin 40 MG/0.4 ML Syringe SUBCUT SCH (13:39)
[2019-09-30] MEDS ORDERED: Heparin Sodium 5,000 Units/ML Vial SUBCUT SCH (14:00)
[2019-09-30 16:28] LABS: ANION GAP 12.6 mEq/L (7-13); CHLORIDE,CL 88 mmol/L (98-107); SODIUM,NA 123 mmol/L (136-145)
[2019-09-30 20:38] LABS: ANION GAP 12.8 mEq/L (7-13); CHLORIDE,CL 90 mmol/L (98-107); SODIUM,NA 126 mmol/L (136-145)
[2019-09-30] MEDS ORDERED: Zolpidem 5 MG Tab PO PRN (21:00)
[2019-09-30] MEDS: Rosuvastatin 10 MG Tab PO SCH (21:01)
[2019-09-30] MEDS: Multivitamins,Therapeutic Tab PO SCH (21:02)
[2019-10-01 07:11] LABS: ANION GAP 12.4 mEq/L (7-13); CHLORIDE,CL 93 mmol/L (98-107); SODIUM,NA 127 mmol/L (136-145)
[2019-10-01] MEDS: DULoxetine 30 MG Cap PO SCH (08:05)
[2019-10-01] MEDS: Enoxaparin 40 MG/0.4 ML Syringe SUBCUT SCH (08:06)
[2019-10-01] MEDS: Insulin Lispro 100 Units/ML 3 ML Vial SUBCUT SCH ×7 (08:08→21:30)
[2019-10-01] MEDS ORDERED: Sodium Chloride 0.9% 1,000 ML IV SCH (08:30)
[2019-10-01] MEDS ORDERED: Insulin Glarg,Human.Rec.Analog 100 Unit/ML SUBCUT SCH ×2 (09:00)
[2019-10-01] MEDS ORDERED: Lisinopril 5 MG Tab PO SCH (09:00)
[2019-10-01] MEDS ORDERED: Lisinopril 20 MG Tab PO SCH (09:00)
[2019-10-01] MEDS ORDERED: Hydrochlorothiazide 25 MG Tab PO SCH (09:00)
[2019-10-01] MEDS ORDERED: Insulin Glarg,Human.Rec.Analog 100 Unit/ML SUBCUT ONE (09:05)
--- NOTE | 2019-10-01 10:52 | PCM.PN ---
- General Info Date of Service: 10/01/19 Admission Dx/Problem (Free Text): Admission Diagnosis/Problem Admission Diagnosis/Problem Hyponatremia Subjective Update: Feeling well. No further shortness of breath. No fever. No cough, no sputum production. No chest pain No nausea or vomiting. Tolerating oral diet Functional Status: Reports: Tolerating Diet, Ambulating - Review of Systems General: Denies: Fever, Weakness Pulmonary: Denies: Shortness of Breath Cardiovascular: Denies: Chest Pain, Edema Genitourinary: Denies: Dysuria Neurological: Denies: Confusion - Patient Data Vitals - Most Recent: Last Vital Signs Temp 99.7 F 10/01/19 07:00 Pulse 121 H 10/01/19 07:00 Resp 18 10/01/19 07:00 BP 90/71 10/01/19 07:00 Pulse Ox 99 10/01/19 07:00 Weight - Most Recent: 123 lb 12.8 oz I&O - Last 24 Hours: Intake & Output 09/30/19 10/01/19 10/01/19 22:59 06:59 14:59 Intake Total 480 240 Balance 480 240 Lab Results Last 24 Hours: Laboratory Results - last 24 hr 09/30/19 09/30/19 09/30/19 Range/Units 11:39 12:30 12:30 WBC (5.0-10.0) 10^3/uL RBC (4.2-5.4) 10^6/uL Hgb (12.0-16.0) g/dL Hct (37.0-47.0) % MCV (80-100) fL MCH (27.0-34.0) pg MCHC (33.0-35.0) g/dL Plt Count (150-450) 10^3/uL Neut % (Auto) (42.2-75.2) % Lymph % (Auto) (20.5-50.1) % [place]ward % (Auto) (2-8) % Eos % (Auto) (1.0-3.0) % Baso % (Auto) (0.0-1.0) % ESR (0-20) mm/hr PT 8.8 L (9.0-12.0) SEC INR 0.9 (0.9-1.2) APTT 25.2 (22.0-34.0) SEC D-Dimer, Quantitative 209 (0-400) ng/mL Sodium (136-145) mmol/L Potassium (3.5-5.1) mmol/L Chloride (98-107) mmol/L Carbon Dioxide (21-32) mmol/L Anion Gap (7-13) mEq/L BUN (7-18) mg/dL Creatinine (0.55-1.02) mg/dL Est Cr Clr Drug Dosing mL/min Estimated GFR (MDRD) Glucose (74-99) mg/dL POC Glucose 376 H (70-105) mg/dl Calcium (8.5-10.1) mg/dL Ferritin 96 (8-252) mg/mL Lactate Dehydrogenase (81-234) U/L Troponin I (0.000-0.056) ng/mL C-Reactive Protein (0.0-0.9) mg/dL Procalcitonin (<0.10) ng/mL 09/30/19 09/30/19 09/30/19 Range/Units 12:30 12:30 12:30 WBC (5.0-10.0) 10^3/uL RBC (4.2-5.4) 10^6/uL Hgb (12.0-16.0) g/dL Hct (37.0-47.0) % MCV (80-100) fL MCH (27.0-34.0) pg MCHC (33.0-35.0) g/dL Plt Count (150-450) 10^3/uL Neut % (Auto) (42.2-75.2) % Lymph % (Auto) (20.5-50.1) % Woodward % (Auto) (2-8) % Eos % (Auto) (1.0-3.0) % Baso % (Auto) (0.0-1.0) % ESR 32 H (0-20) mm/hr PT (9.0-12.0) SEC INR (0.9-1.2) APTT (22.0-34.0) SEC D-Dimer, Quantitative (0-400) ng/mL Sodium 121 L (136-145) mmol/L Potassium 4.1 (3.5-5.1) mmol/L Chloride 84 L (98-107) mmol/L Carbon Dioxide 26 (21-32) mmol/L Anion Gap 15.1 H (7-13) mEq/L BUN 17 (7-18) mg/dL Creatinine 0.77 (0.55-1.02) mg/dL Est Cr Clr Drug Dosing 92.12 mL/min Estimated GFR (MDRD) > 60 Glucose 366 H (74-99) mg/dL POC Glucose (70-105) mg/dl Calcium 8.3 L (8.5-10.1) mg/dL Ferritin (8-252) mg/mL Lactate Dehydrogenase 243 H (81-234) U/L Troponin I < 0.017 (0.000-0.056) ng/mL C-Reactive Protein 1.6 H (0.0-0.9) mg/dL Procalcitonin 0.63 H (<0.10) ng/mL 09/30/19 09/30/19 09/30/19 Range/Units 16:00 16:59 20:20 WBC (5.0-10.0) 10^3/uL RBC (4.2-5.4) 10^6/uL Hgb (12.0-16.0) g/dL Hct (37.0-47.0) % MCV (80-100) fL MCH (27.0-34.0) pg MCHC (33.0-35.0) g/dL Plt Count (150-450) 10^3/uL Neut % (Auto) (42.2-75.2) % Lymph % (Auto) (20.5-50.1) % [place]ward % (Auto) (2-8) % Eos % (Auto) (1.0-3.0) % Baso % (Auto) (0.0-1.0) % ESR (0-20) mm/hr PT (9.0-12.0) SEC INR (0.9-1.2) APTT (22.0-34.0) SEC D-Dimer, Quantitative (0-400) ng/mL Sodium 123 L 126 L (136-145) mmol/L Potassium 3.6 3.8 (3.5-5.1) mmol/L Chloride 88 L 90 L (98-107) mmol/L Carbon Dioxide 26 27 (21-32) mmol/L Anion Gap 12.6 12.8 (7-13) mEq/L BUN 19 H 24 H (7-18) mg/dL Creatinine 0.83 0.81 (0.55-1.02) mg/dL Est Cr Clr Drug Dosing 85.46 87.57 mL/min Estimated GFR (MDRD) > 60 > 60 Glucose 198 H 80 (74-99) mg/dL POC Glucose 148 H (70-105) mg/dl Calcium 8.1 L 8.1 L (8.5-10.1) mg/dL Ferritin (8-252) mg/mL Lactate Dehydrogenase (81-234) U/L Troponin I (0.000-0.056) ng/mL C-Reactive Protein (0.0-0.9) mg/dL Procalcitonin (<0.10) ng/mL 09/30/19 10/01/19 10/01/19 Range/Units 20:53 06:42 06:42 WBC 6.1 (5.0-10.0) 10^3/uL RBC 5.00 (4.2-5.4) 10^6/uL Hgb 13.6 (12.0-16.0) g/dL Hct 39.2 (37.0-47.0) % MCV 78.4 L (80-100) fL MCH 27.2 (27.0-34.0) pg MCHC 34.7 (33.0-35.0) g/dL Plt Count 195 (150-450) 10^3/uL Neut % (Auto) 64.3 (42.2-75.2) % Lymph % (Auto) 28.6 (20.5-50.1) % [place] % (Auto) 6.9 (2-8) % Eos % (Auto) 0.2 L (1.0-3.0) % Baso % (Auto) 0.0 (0.0-1.0) % ESR (0-20) mm/hr PT (9.0-12.0) SEC INR (0.9-1.2) APTT (22.0-34.0) SEC D-Dimer, Quantitative (0-400) ng/mL Sodium 127 L (136-145) mmol/L Potassium 4.4 (3.5-5.1) mmol/L Chloride 93 L (98-107) mmol/L Carbon Dioxide 26 (21-32) mmol/L Anion Gap 12.4 (7-13) mEq/L BUN 30 H (7-18) mg/dL Creatinine 1.01 (0.55-1.02) mg/dL Est Cr Clr Drug Dosing 70.23 mL/min Estimated GFR (MDRD) > 60 Glucose 324 H (74-99) mg/dL POC Glucose 80 (70-105) mg/dl Calcium 8.5 (8.5-10.1) mg/dL Ferritin (8-252) mg/mL Lactate Dehydrogenase (81-234) U/L Troponin I (0.000-0.056) ng/mL C-Reactive Protein (0.0-0.9) mg/dL Procalcitonin (<0.10) ng/mL Aaron Results Last 24 Hours: Microbiology 09/30/19 07:28 Aerobic Blood Culture - Preliminary Blood NO GROWTH AFTER 1 DAY Anaerobic Blood Culture - Preliminary NO GROWTH AFTER 1 DAY Med Orders - Current: Current Medications Acetaminophen (Tylenol) 650 mg PO Q4H PRN PRN Reason: Pain (Mild 1-3)/fever Hydrocodone Bitart/Acetaminophen ([place] 325-5 Mg) 1 tab PO Q4H PRN PRN Reason: Pain (severe 7-10) Albuterol (Proventil Hfa) 0 gm INH Q4HR PRN PRN Reason: Wheezing, sob Duloxetine HCl (Cymbalta) 30 mg PO DAILY [facility] Last Admin: 10/01/19 08:05 Dose: 30 mg Documented by: Enoxaparin Sodium (Lovenox) 40 mg SUBCUT DAILY [facility] Last Admin: 10/01/19 08:06 Dose: 40 mg Documented by: Sodium Chloride (Normal Saline) 1,000 mls @ 50 mls/hr IV ASDIRECTED [facility] Ibuprofen (Motrin) 600 mg PO Q6H PRN PRN Reason: Pain (mild 1-3) Insulin Glargine (Lantus) 40 unit SUBCUT DAILY [facility] Insulin Human Lispro (Humalog) 0 unit SUBCUT QIDACANDBED [facility]; Protocol Last Admin: 10/01/19 08:08 Dose: 4 units Documented by: Insulin Human Lispro (Humalog) 10 unit SUBCUT TIDMEALS [facility] Last Admin: 10/01/19 08:10 Dose: 10 units Documented by: Lorazepam (Ativan) 1 mg IVPUSH Q6H PRN PRN Reason: withdrawal, severe anxiety Lorazepam (Ativan) 1 mg PO Q6H PRN PRN Reason: Anxiety Multivitamins (Thera) 1 each PO BEDTIME [facility] Last Admin: 09/30/19 21:02 Dose: 1 each Documented by: Ondansetron HCl (Zofran Odt) 4 mg PO Q4H PRN PRN Reason: nausea, able to take PO Ondansetron HCl (Zofran) 4 mg IVPUSH Q6H PRN PRN Reason: Nausea/Vomiting Rosuvastatin Calcium (Crestor) 20 mg PO BEDTIME [facility] Last Admin: 09/30/19 21:01 Dose: 20 mg Documented by: Sodium Chloride (Saline Flush) 10 ml FLUSH ASDIRECTED PRN PRN Reason: Keep Vein Open Zolpidem Tartrate (Ambien) 5 mg PO BEDTIME PRN PRN Reason: Sleep Discontinued Medications Hydrocodone Bitart/Acetaminophen ([place] 325-10 Mg) 0.5 tab PO Q4H PRN PRN Reason: Pain (moderate 4-6) Heparin Sodium (Porcine) (Heparin Sodium) 7,500 units SUBCUT Q8HR [facility] Hydrochlorothiazide (Hydrochlorothiazide) 12.5 mg PO DAILY [facility] Potassium Chloride/Sodium Chloride (Normal Saline With 20 Meq Kcl) 1,000 mls @ 50 mls/hr IV ASDIRECTED [facility] Last Admin: 09/30/19 11:39 Dose: 100 mls/hr Documented by: Insulin Glargine (Lantus) 20 unit SUBCUT DAILY [facility] Last Admin: 09/30/19 11:42 Dose: 20 units Documented by: Insulin Glargine (Lantus) 30 unit SUBCUT DAILY [facility] Last Admin: 10/01/19 08:07 Dose: 30 units Documented by: Insulin Glargine (Lantus) 40 unit SUBCUT DAILY [facility] Last Admin: 10/01/19 10:06 Dose: Not Given Documented by: Insulin Glargine (Lantus) 10 unit SUBCUT ONETIME ONE Stop: 10/01/19 09:06 Insulin Human Lispro (Humalog) 30 unit SUBCUT TIDAC [facility] Last Admin: 09/30/19 11:44 Dose: 30 units Documented by: Lisinopril (Prinivil) 40 mg PO DAILY [facility] Lorazepam (Ativan) 0 mg PO TITRATE PRN PRN Reason: Anxiety Last Admin: 09/30/19 11:41 Dose: 1 mg Documented by: Lorazepam (Ativan) 0 mg IVPUSH TITRATE PRN PRN Reason: withdrawal, severe anxiety - Exam General: Alert, Oriented Neck: Supple Lungs: Clear to Auscultation, Normal Respiratory Effort Cardiovascular: Regular Rate, Regular Rhythm Extremities: No Pedal Edema Skin: Warm, Dry Neurological: No New Focal Deficit Psy/Mental Status: Alert, Normal Affect, Normal Mood Sepsis Event Note - Evaluation Sepsis Screening Result: No Definite Risk - Focused Exam Vital Signs: Vital Signs Temp Pulse Resp BP Pulse Ox 10/01/19 07:00 99.7 F 121 H 18 90/71 99 10/01/19 02:30 99.7 F 102 H 18 90/55 L 97 Date Exam was Performed: 10/01/19 Time Exam was Performed: 10:49 - Problem List & Annotations (1) HTN (hypertension) SNOMED Code(s): 46348236 Code(s): I10 - ESSENTIAL (PRIMARY) HYPERTENSION Status: Acute Current Visit: Yes (2) COVID-19 SNOMED Code(s): 482186608 Code(s): U07.1 - COVID-19 Status: Acute Current Visit: Yes (3) Hyponatremia SNOMED Code(s): 54349861 Code(s): E87.1 - HYPO-OSMOLALITY AND HYPONATREMIA Status: Acute Current Visit: Yes (4) Methamphetamine abuse SNOMED Code(s): 490412355 Code(s): F15.10 - OTHER STIMULANT ABUSE, UNCOMPLICATED Status: Acute Current Visit: Yes (5) Anxiety SNOMED Code(s): 82494693 Code(s): F41.9 - ANXIETY DISORDER, UNSPECIFIED Status: Acute Current Visit: No (6) Diabetes mellitus type 1 SNOMED Code(s): 41283290 Code(s): E10.9 - TYPE 1 DIABETES MELLITUS WITHOUT COMPLICATIONS Status: Acute Current Visit: No - Problem List Review Problem List Initiated/Reviewed/Updated: Yes - My Orders Last 24 Hours: My Active Orders 09/30/19 11:27 Oxygen Therapy [RC] PRN Up With Assistance [RC] ASDIRECTED VTE/DVT Education [RC] PER UNIT ROUTINE Vital Signs [RC] 03,07,11,15,19,23 Acetaminophen [Tylenol] 650 mg PO Q4H PRN Ibuprofen [Motrin] 600 mg PO Q6H PRN Ondansetron [Zofran ODT] 4 mg PO Q4H PRN Ondansetron [Zofran] 4 mg IVPUSH Q6H PRN Sodium Chloride 0.9% [Saline Flush] 10 ml FLUSH ASDIRECTED PRN Peripheral IV Insertion Adult [OM.PC] Routine Resuscitation Status Routine 09/30/19 11:28 Antiembolic Devices [RC] 10,22 Antiembolic Hose [OM.PC] Per Unit Routine 09/30/19 11:29 Peripheral IV Care [RC] 09,09/30/19 11:46 Acetaminophen/HYDROcodone [[place] 325-5 MG] 1 tab PO Q4H PRN 09/30/19 11:53 Glucose [Blood Glucose Check, Bedside] [RC] QIDACANDBED 09/30/19 Lunch Consistent Carbohydrate Diet [DIET] Enoxaparin [Lovenox] 40 mg SUBCUT DAILY Insulin Lispro [HumaLOG] See Protocol SUBCUT QIDACANDBED 09/30/19 13:30 LORazepam [Ativan] 1 mg IVPUSH Q6H PRN 09/30/19 16:00 Insulin Lispro [HumaLOG] 10 unit SUBCUT TIDMEALS 09/30/19 17:41 LORazepam [Ativan] 1 mg PO Q6H PRN 09/30/19 21:00 Multivitamins,Therapeutic [Thera] 1 each PO BEDTIME Rosuvastatin [Crestor] 20 mg PO BEDTIME Zolpidem [Ambien] 5 mg PO BEDTIME PRN 10/01/19 08:30 Sodium Chloride 0.9% [Normal Saline] 1,000 ml IV ASDIRECTED 10/01/19 09:00 DULoxetine [Cymbalta] 30 mg PO DAILY 10/01/19 14:00 BASIC METABOLIC PANEL,BMP [CHEM] Timed 10/02/19 05:15 BASIC METABOLIC PANEL,BMP [CHEM] AM 10/02/19 09:00 Insulin Glarg,Human.Rec.Analog [LantUS] 40 unit SUBCUT DAILY - Plan Plan:: 34-year-old with a history of diabetes, hypertension, onset the mean and alcohol use history. Presented with shortness of breath and chest pain quickly after THE coming IV injection. Shortness of breath might relate to pulmonary embolism during amphetamine injection CT did not show significant PE, infarct CT was more compatible with Coreg with 19 pneumonia Covid 19 pneumonia With elevated CRP, normal d-dimer, leukopenia on admission In a patient with risk factors of diabetes, hypertension The patient is hemodynamically stable, oxygen saturation is good on room air. We'll closely monitor and provide symptomatic treatment Use albuterol as needed for shortness of breath Hyponatremia The initial corrected sodium is in the 120 range Started the patient on normal saline hydration With that the patient's sodium critically, too quickly increased Plan stop the IV fluid sodium slowly increased Today resume fluid Recheck sodium in about 6 hours We will stop hydrochlorothiazide Control diabetes Uncontrolled diabetes Increase the morning dose of long-acting insulin Give supplemental insulin as needed Hypertension Continue DEB inhibitor Hold hydrochlorothiazide Monitor and adjust DVT prophylaxis will be important in the setting of Covid 19 pneumonia The patient is currently hospitalized but not requiring ICU treatment Will treat with Lovenox 40 mg daily
[2019-10-01] MEDS: Acetaminophen 325 MG Tab PO PRN ×2 (11:57→21:29)
[2019-10-01 14:19] LABS: ANION GAP 11.9 mEq/L (7-13); CHLORIDE,CL 97 mmol/L (98-107); SODIUM,NA 132 mmol/L (136-145)
[2019-10-01] MEDS: Rosuvastatin 10 MG Tab PO SCH (21:29)
[2019-10-01] MEDS: Multivitamins,Therapeutic Tab PO SCH (21:29)
[2019-10-02 07:07] LABS: ANION GAP 11.2 mEq/L (7-13); CHLORIDE,CL 99 mmol/L (98-107); SODIUM,NA 132 mmol/L (136-145)
[2019-10-02] MEDS: DULoxetine 30 MG Cap PO SCH (08:00)
[2019-10-02] MEDS: Enoxaparin 40 MG/0.4 ML Syringe SUBCUT SCH (08:01)
[2019-10-02] MEDS: Insulin Lispro 100 Units/ML 3 ML Vial SUBCUT SCH ×4 (08:04→11:56)
[2019-10-02 08:23] VITALS: BP 103/65; PULSE 94
[2019-10-02] MEDS ORDERED: Insulin Glarg,Human.Rec.Analog 100 Unit/ML SUBCUT SCH (09:00)
--- NOTE | 2019-10-02 10:09 | PCM.DCSUM1 ---
Discharge Summary - Hospital Course Free Text/Narrative:: 34-year-old with a history of diabetes, hypertension, meth and alcohol use history. Presented with shortness of breath and chest pain quickly after metamphetamine IV injection. Shortness of breath might relate to pulmonary embolism during amphetamine inj ection CT did not show significant PE, infarct CT was more compatible with Coreg with 19 pneumonia Covid 19 pneumonia With elevated CRP, normal d-dimer, leukopenia on admission In a patient with risk factors of diabetes, hypertension The patient remained hemodynamically stable, oxygen saturation is good on room air. will be discharged to isolation Hyponatremia The initial corrected sodium was in the 120 range improved with slow hydration We will stop hydrochlorothiazide Control diabetes Uncontrolled diabetes resume morning dose of long-acting insulin Give supplemental insulin as needed Hypertension decreased DEB inhibitor stop hydrochlorothiazide Monitor and adjust Diagnosis: Stroke: No - Discharge Data Discharge Date: 10/02/19 Discharge Disposition: Home, Self-Care 01 Condition: Good - Referral to Home Health Primary Care Physician: Anneliese Diana PA-C - Discharge Diagnosis/Problem(s) (1) HTN (hypertension) SNOMED Code(s): 84800074 ICD Code: I10 - ESSENTIAL (PRIMARY) HYPERTENSION Status: Acute Current Visit: Yes (2) COVID-19 SNOMED Code(s): 244883176 ICD Code: U07.1 - COVID-19 Status: Acute Current Visit: Yes (3) Hyponatremia SNOMED Code(s): 74773099 ICD Code: E87.1 - HYPO-OSMOLALITY AND HYPONATREMIA Status: Acute Current Visit: Yes (4) Methamphetamine abuse SNOMED Code(s): 554308681 ICD Code: F15.10 - OTHER STIMULANT ABUSE, UNCOMPLICATED Status: Acute Current Visit: Yes (5) Anxiety SNOMED Code(s): 26842196 ICD Code: F41.9 - ANXIETY DISORDER, UNSPECIFIED Status: Acute Current Visit: No (6) Diabetes mellitus type 1 SNOMED Code(s): 56011620 ICD Code: E10.9 - TYPE 1 DIABETES MELLITUS WITHOUT COMPLICATIONS Status: Acute Current Visit: No - Patient Instructions Diet: Usual Diet as Tolerated Activity: As Tolerated - Discharge Plan *PRESCRIPTION DRUG MONITORING PROGRAM REVIEWED*: Not Applicable *COPY OF PRESCRIPTION DRUG MONITORING REPORT IN PATIENT JIMENEZ: Not Applicable Prescriptions/Med Rec: lisinopriL [Lisinopril] 10 mg PO DAILY #30 tablet Home Medications: Home Meds Insulin Aspart [NovoLOG] 10 unit SUBCUT QIDACANDBED 10/07/16 [History] Insulin Detemir [Levemir] 32 unit SUBCUT QAM 10/07/16 [History] Multivitamins,Therapeutic [Thera] 1 each PO BEDTIME #30 tablet 10/09/16 [Rx] DULoxetine HCl [Duloxetine HCl] 30 mg PO DAILY 09/30/19 [History] Dextrose [Glucose] 4 gm PO ASDIRECTED 09/30/19 [History] Rosuvastatin Calcium 20 mg PO BEDTIME 09/30/19 [History] metFORMIN HCl [Metformin HCl] 1,000 mg PO BID 09/30/19 [History] lisinopriL [Lisinopril] 10 mg PO DAILY #30 tablet 10/02/19 [Rx] Oxygen Therapy Mode: Room Air Referrals: Anneliese Diana PA-C [Primary Care Provider] - (in 2-3 days) - Discharge Summary/Plan Comment DC Time >30 min.: No - General Info Date of Service: 10/02/19 Admission Dx/Problem (Free Text: Admission Diagnosis/Problem Admission Diagnosis/Problem Hyponatremia Subjective Update: Feeling well. No further shortness of breath. No fever. No cough, no sputum production. No chest pain No nausea or vomiting. Tolerating oral diet - Review of Systems General: Denies: Fever Pulmonary: Denies: Shortness of Breath Cardiovascular: Denies: Chest Pain Gastrointestinal: Denies: Abdominal Pain, Diarrhea Neurological: Denies: Confusion - Patient Data Vitals - Most Recent: Last Vital Signs Temp 99.7 F 10/02/19 08:00 Pulse 94 10/02/19 08:00 Resp 18 10/02/19 08:00 BP 103/65 10/02/19 08:00 Pulse Ox 94 L 10/02/19 08:00 Weight - Most Recent: 123 lb 12.8 oz I&O - Last 24 hours: Intake & Output 10/01/19 10/02/19 10/02/19 22:59 06:59 14:59 Intake Total 1760 630 Balance 1760 630 Lab Results - Last 24 hrs: Laboratory Results - last 24 hr 10/01/19 10/01/19 10/01/19 Range/Units 08:00 11:47 13:58 Sodium 132 L (136-145) mmol/L Potassium 3.9 (3.5-5.1) mmol/L Chloride 97 L (98-107) mmol/L Carbon Dioxide 27 (21-32) mmol/L Anion Gap 11.9 (7-13) mEq/L BUN 33 H (7-18) mg/dL Creatinine 1.02 (0.55-1.02) mg/dL Est Cr Clr Drug Dosing 69.54 mL/min Estimated GFR (MDRD) > 60 Glucose 114 H (74-99) mg/dL POC Glucose 312 H 237 H (70-105) mg/dl Calcium 8.4 L (8.5-10.1) mg/dL 10/01/19 10/01/19 10/01/19 Range/Units 17:02 21:22 22:37 Sodium (136-145) mmol/L Potassium (3.5-5.1) mmol/L Chloride (98-107) mmol/L Carbon Dioxide (21-32) mmol/L Anion Gap (7-13) mEq/L BUN (7-18) mg/dL Creatinine (0.55-1.02) mg/dL Est Cr Clr Drug Dosing mL/min Estimated GFR (MDRD) Glucose (74-99) mg/dL POC Glucose 82 55 L 168 H (70-105) mg/dl Calcium (8.5-10.1) mg/dL 10/02/19 10/02/19 Range/Units 06:35 07:58 Sodium 132 L (136-145) mmol/L Potassium 4.2 (3.5-5.1) mmol/L Chloride 99 (98-107) mmol/L Carbon Dioxide 26 (21-32) mmol/L Anion Gap 11.2 (7-13) mEq/L BUN 23 H (7-18) mg/dL Creatinine 0.72 (0.55-1.02) mg/dL Est Cr Clr Drug Dosing 98.52 mL/min Estimated GFR (MDRD) > 60 Glucose 199 H (74-99) mg/dL POC Glucose 203 H (70-105) mg/dl Calcium 7.6 L (8.5-10.1) mg/dL SANDRITA Results - Last 24 hrs: Microbiology 09/30/19 07:28 Aerobic Blood Culture - Preliminary Blood NO GROWTH AFTER 2 DAYS Anaerobic Blood Culture - Preliminary NO GROWTH AFTER 2 DAYS Med Orders - Current: Current Medications Acetaminophen (Tylenol) 650 mg PO Q4H PRN PRN Reason: Pain (Mild 1-3)/fever Last Admin: 10/01/19 21:29 Dose: 650 mg Documented by: Hydrocodone Bitart/Acetaminophen ([place] 325-5 Mg) 1 tab PO Q4H PRN PRN Reason: Pain (severe 7-10) Albuterol (Proventil Hfa) 0 gm INH Q4HR PRN PRN Reason: Wheezing, sob Duloxetine HCl (Cymbalta) 30 mg PO DAILY [facility] Last Admin: 10/02/19 08:00 Dose: 30 mg Documented by: Enoxaparin Sodium (Lovenox) 40 mg SUBCUT DAILY [facility] Last Admin: 10/02/19 08:01 Dose: 40 mg Documented by: Sodium Chloride (Normal Saline) 1,000 mls @ 50 mls/hr IV ASDIRECTED [facility] Last Admin: 10/01/19 11:42 Dose: 50 mls/hr Documented by: Ibuprofen (Motrin) 600 mg PO Q6H PRN PRN Reason: Pain (mild 1-3) Insulin Glargine (Lantus) 40 unit SUBCUT DAILY [facility] Last Admin: 10/02/19 08:02 Dose: 40 units Documented by: Insulin Human Lispro (Humalog) 0 unit SUBCUT QIDACANDBED [facility]; Protocol Last Admin: 10/02/19 08:04 Dose: 2 units Documented by: Insulin Human Lispro (Humalog) 10 unit SUBCUT TIDMEALS [facility] Last Admin: 10/02/19 08:06 Dose: 10 units Documented by: Lorazepam (Ativan) 1 mg IVPUSH Q6H PRN PRN Reason: withdrawal, severe anxiety Lorazepam (Ativan) 1 mg PO Q6H PRN PRN Reason: Anxiety Multivitamins (Thera) 1 each PO BEDTIME [facility] Last Admin: 10/01/19 21:29 Dose: 1 each Documented by: Ondansetron HCl (Zofran Odt) 4 mg PO Q4H PRN PRN Reason: nausea, able to take PO Ondansetron HCl (Zofran) 4 mg IVPUSH Q6H PRN PRN Reason: Nausea/Vomiting Rosuvastatin Calcium (Crestor) 20 mg PO BEDTIME [facility] Last Admin: 10/01/19 21:29 Dose: 20 mg Documented by: Sodium Chloride (Saline Flush) 10 ml FLUSH ASDIRECTED PRN PRN Reason: Keep Vein Open Zolpidem Tartrate (Ambien) 5 mg PO BEDTIME PRN PRN Reason: Sleep Last Admin: 10/01/19 21:29 Dose: 5 mg Documented by: Discontinued Medications Hydrocodone Bitart/Acetaminophen ([place] 325-10 Mg) 0.5 tab PO Q4H PRN PRN Reason: Pain (moderate 4-6) Heparin Sodium (Porcine) (Heparin Sodium) 7,500 units SUBCUT Q8HR [facility] Hydrochlorothiazide (Hydrochlorothiazide) 12.5 mg PO DAILY [facility] Potassium Chloride/Sodium Chloride (Normal Saline With 20 Meq Kcl) 1,000 mls @ 50 mls/hr IV ASDIRECTED [facility] Last Admin: 09/30/19 11:39 Dose: 100 mls/hr Documented by: Insulin Glargine (Lantus) 20 unit SUBCUT DAILY [facility] Last Admin: 09/30/19 11:42 Dose: 20 units Documented by: Insulin Glargine (Lantus) 30 unit SUBCUT DAILY [facility] Last Admin: 10/01/19 08:07 Dose: 30 units Documented by: Insulin Glargine (Lantus) 40 unit SUBCUT DAILY [facility] Last Admin: 10/01/19 10:06 Dose: Not Given Documented by: Insulin Glargine (Lantus) 10 unit SUBCUT ONETIME ONE Stop: 10/01/19 09:06 Last Admin: 10/01/19 11:48 Dose: 10 units Documented by: Insulin Human Lispro (Humalog) 30 unit SUBCUT TIDAC [facility] Last Admin: 09/30/19 11:44 Dose: 30 units Documented by: Lisinopril (Prinivil) 40 mg PO DAILY [facility] Lorazepam (Ativan) 0 mg PO TITRATE PRN PRN Reason: Anxiety Last Admin: 09/30/19 11:41 Dose: 1 mg Documented by: Lorazepam (Ativan) 0 mg IVPUSH TITRATE PRN PRN Reason: withdrawal, severe anxiety - Exam General: Reports: Alert, Oriented Neck: Reports: Supple Lungs: Reports: Clear to Auscultation, Normal Respiratory Effort Cardiovascular: Reports: Regular Rate, Regular Rhythm GI/Abdominal Exam: Normal Bowel Sounds, Soft, Non-Tender Extremities: No Pedal Edema Skin: Reports: Warm, Dry, Intact Psy/Mental Status: Reports: Alert, Normal Affect, Normal Mood
== END 2019-10-02 14:00 | disposition home or self-care (01) | DRG 177 ==
LOC: DL.ED 06:40 → UNDOADMIN 08:45 → DL.MS 08:45
PROVIDERS: ADMIT Internal Medicine; ATTEND Internal Medicine
PROC: 8E0ZXY6 Isolation (ICD-10-PCS; principal; 2019-09-30)
DX: U07.1 COVID-19 (principal); J12.89 Other viral pneumonia; E87.1 Hypo-osmolality and hyponatremia; F15.10 Other stimulant abuse, uncomplicated; F41.9 Anxiety disorder, unspecified; H54.7 Unspecified visual loss; I11.0 Hypertensive heart disease with heart failure; I50.9 Heart failure, unspecified; E10.21 Type 1 diabetes mellitus with diabetic nephropathy; E10.40 Type 1 diabetes mellitus with diabetic neuropathy, unspecified; E64.9 Sequelae of unspecified nutritional deficiency; E10.42 Type 1 diabetes mellitus with diabetic polyneuropathy; F32.9 Major depressive disorder, single episode, unspecified; D64.9 Anemia, unspecified; F17.210 Nicotine dependence, cigarettes, uncomplicated; Z90.49 Acquired absence of other specified parts of digestive tract; Z79.899 Other long term (current) drug therapy; Z79.4 Long term (current) use of insulin
CPT/HCPCS: 36415; 71250; 80048; 80053; 80305; 80307; 81001; 81025; 82728; 82962 ×2; 83605; 83615; 84145; 84484 ×2; 85025; 85379; 85610; 85651; 85730; 86140; 87040; 87635; 93005; 99285; A9270; J1650; J1815 ×2; J3480; 99221; 99232; 99238; 99284; J7030; U0002

== ENCOUNTER 2022-11-07 12:42 | Emergency (ER) | payer MEDICAID ==
[2022-11-07] MEDS ORDERED: Sodium Chloride 0.9% 10 ML Syringe FLUSH PRN (12:50)
[2022-11-07] MEDS ORDERED: Sodium Chloride 0.9% 1,000 ML IV ONE (12:53)
[2022-11-07 13:03] VITALS: BP 165/113; PULSE 94
[2022-11-07 13:05] LABS: BASOPHILS PERCENT AUTO 0.1 % (0.0-1.0); EOSINOPHILS PERCENT AUTO 0.5 % (1.0-3.0); HEMATOCRIT 39.3 % (37.0-47.0); LYMPHOCYTES PERCENT AUTO 11.3 % (20.5-50.1); MEAN CORPUSCULAR HEMOGLOBIN 30.5 pg (27.0-34.0); MEAN CORPUSCULAR HGB CONC 35.6 g/dL (33.0-35.0); MEAN CORPUSCULAR VOLUME 85.6 fL (80-100); NEUTROPHILS PERCENT AUTO 83.1 % (42.2-75.2); PLATELET COUNT,PLT 355 10^3/uL (150-450); RED BLOOD CELL COUNT 4.59 10^6/uL (4.2-5.4); WHITE BLOOD CELL COUNT,WBC 10.5 10^3/uL (5.0-10.0)
[2022-11-07 13:24] LABS: ALANINE AMINOTRANSFERASE,ALT 52 U/L (14-59); ALBUMIN 1.4 g/dL (3.4-5.0); ALKALINE PHOSPHATASE 253 U/L (46-116); ANION GAP 9.5 mEq/L (7-13); ASPARTATE AMNIOTRANSFERASE,AST 49 U/L (15-37); BILIRUBIN TOTAL 0.2 mg/dL (0.2-1.0); BLOOD UREA NITROGEN,BUN 18 mg/dL (7-18); BUN/CREATININE RATIO 27.7 (No establ ref range); C-REACTIVE PROTEIN 6.74 ng/dL (<=0.30); CALCIUM 8.9 mg/dL (8.5-10.1); CARBON DIOXIDE,CO2 32 mmol/L (21-32); CHLORIDE,CL 91 mmol/L (98-107); CREATININE 0.65 mg/dL (0.55-1.02); EST CRCL DRUG DOSING (CG) 90.82 mL/min; GLUCOSE RANDOM 327 mg/dL (70-99); KETONES,BLOOD NEGATIVE; MAGNESIUM 1.9 mg/dL (1.8-2.4); POTASSIUM,K 2.5 mmol/L (3.5-5.1); PROTEIN TOTAL,TP 6.9 g/dL (6.4-8.2); SODIUM,NA 130 mmol/L (136-145)
[2022-11-07 13:25] LABS: A/G RATIO 0.25; ESTIMATED GFR 117 mL/min (>=60); ETHANOL BLOOD MEDICAL < 3 mg/dL (0)
[2022-11-07 13:27] LABS: LACTIC ACID 1.7 mmol/L (0.4-2.0)
[2022-11-07] MEDS ORDERED: Potassium Chloride 10 MEQ Tab.ER PO ONE (13:33)
== END 2022-11-07 14:07 | disposition home or self-care (01) ==
LOC: DL.ED 12:42
DX: R19.7 Diarrhea, unspecified (principal); E87.6 Hypokalemia; I11.0 Hypertensive heart disease with heart failure; I50.9 Heart failure, unspecified; E10.21 Type 1 diabetes mellitus with diabetic nephropathy; Z79.899 Other long term (current) drug therapy; Z86.16 Personal history of COVID-19
CPT/HCPCS: 36415; 80053; 80307; 82009; 83605; 83735; 85025; 86140; 96360; 99284; A9270; J7030

== ENCOUNTER 2022-11-11 03:03 | Inpatient (IN) | payer MEDICAID ==
[2022-11-11 02:58] LABS: BASOPHILS PERCENT AUTO 0.2 % (0.0-1.0); EOSINOPHILS PERCENT AUTO 0.5 % (1.0-3.0); HEMATOCRIT 36.3 % (37.0-47.0); HEMOGLOBIN 12.4 g/dL (12.0-16.0); LYMPHOCYTES PERCENT AUTO 13.6 % (20.5-50.1); MEAN CORPUSCULAR HEMOGLOBIN 30.5 pg (27.0-34.0); MEAN CORPUSCULAR HGB CONC 34.2 g/dL (33.0-35.0); MEAN CORPUSCULAR VOLUME 89.2 fL (80-100); MONOCYTES PERCENT AUTO 6.8 % (2-8); NEUTROPHILS PERCENT AUTO 78.9 % (42.2-75.2); PLATELET COUNT,PLT 365 10^3/uL (150-450); RED BLOOD CELL COUNT 4.07 10^6/uL (4.2-5.4); WHITE BLOOD CELL COUNT,WBC 12.3 10^3/uL (5.0-10.0)
[~2022-11-11 03:03] MED LIST: Lactated Ringers 1,000 ML IV ONE; Ondansetron 4 MG/2 ML SDV IVPUSH ONE; Piperacillin/Tazobactam 4.5 GM in Sodium Chloride 0.9% 100 ML IV ONE
[2022-11-11 03:10] LABS: HCG QUALITATIVE,SERUM NEGATIVE (NEGATIVE); KETONES,BLOOD NEGATIVE
[2022-11-11 03:11] LABS: C-REACTIVE PROTEIN 7.73 ng/dL (<=0.30)
[2022-11-11 03:12] LABS: ETHANOL BLOOD MEDICAL < 3 mg/dL (0)
[2022-11-11] MEDS ORDERED: Enoxaparin 60 MG/0.6 ML Syringe SUBCUT ONE (03:16)
[2022-11-11 03:18] LABS: LACTIC ACID 1.5 mmol/L (0.4-2.0)
[2022-11-11] MEDS ORDERED: Ondansetron 4 MG/2 ML SDV IVPUSH ONE (03:24)
[2022-11-11 03:25] LABS: ALBUMIN 1.3 g/dL (3.4-5.0); ANION GAP 15.2 mEq/L (7-13); BILIRUBIN TOTAL 0.2 mg/dL (0.2-1.0); BUN/CREATININE RATIO 31.9 (No establ ref range); CREATININE 0.94 mg/dL (0.55-1.02); EST CRCL DRUG DOSING (CG) 72.28 mL/min; POTASSIUM,K 5.2 mmol/L (3.5-5.1); PROTEIN TOTAL,TP 6.8 g/dL (6.4-8.2)
[2022-11-11 03:26] LABS: A/G RATIO 0.24
[2022-11-11] MEDS ORDERED: Insulin Regular, Human 100 Units/ML 3 ML Vial IV ONE (03:29)
[2022-11-11] MEDS ORDERED: 50% Dextrose in Water 50 ML Syringe IVPUSH PRN ×4 (03:29→13:16)
[2022-11-11] MEDS ORDERED: Glucagon,Human Recombinant 1 MG Vial IM PRN ×4 (03:29→13:16)
[2022-11-11 03:53] LABS: AMPHETAMINES,URINE NEGATIVE (NEGATIVE); APPEARANCE,URINE CLEAR (CLEAR); BARBITURATES,URINE NEGATIVE (NEGATIVE); BENZODIAZEPINE,URINE NEGATIVE (NEGATIVE); BILIRUBIN,URINE NEGATIVE (NEGATIVE); COLOR,URINE YELLOW (YELLOW); GLUCOSE,URINE 500 (NEGATIVE); KETONES,URINE NEGATIVE (NEGATIVE); LEUKOCYTE ESTERASE,URINE NEGATIVE (NEGATIVE); MDMA (ECSTASY), URINE NEGATIVE (NEGATIVE); METHADONE,URINE NEGATIVE (NEGATIVE); METHAMPHETAMINES,URINE NEGATIVE (NEGATIVE); NITRITE,URINE NEGATIVE (NEGATIVE); OCCULT BLOOD,URINE TRACE-INTACT (NEGATIVE); OPIATES,URINE NEGATIVE (NEGATIVE); OXYCODONE,URINE NEGATIVE (NEGATIVE); PH,URINE 6.5 (5.0-9.0); PHENCYCLIDINE,URINE NEGATIVE (NEGATIVE); PROTEIN,URINE 100 (NEGATIVE); TCA,URINE NEGATIVE (NEGATIVE); UROBILINOGEN,URINE 0.2 mg/dL (0.2-1.0)
[2022-11-11 05:34] LABS: BACTERIA,URINE FEW /HPF (0-FEW/HPF); EPITHELIAL CELLS,URINE FEW /HPF (NOT SEEN); HYALINE CASTS,URINE FEW; MUCUS,URINE FEW /LPF (NOT SEEN); WBC,URINE 0-5 /HPF (0-5/HPF)
[2022-11-11] MEDS ORDERED: Ondansetron 4 MG Tab.DIS PO PRN (09:19)
[2022-11-11] MEDS ORDERED: Sennosides/Docusate Sodium 50-8.6 MG Tab PO PRN (09:19)
[2022-11-11] MEDS ORDERED: Lisinopril 20 MG Tab PO SCH ×2 (09:30→13:15)
[2022-11-11] MEDS ORDERED: Enoxaparin 40 MG/0.4 ML Syringe SUBCUT SCH (09:45)
[2022-11-11] MEDS ORDERED: Non-Formulary Medication 1 Each (Insulin Aspart 100 UNIT/ML Pen) SUBCUT SCH (11:00)
[2022-11-11] MEDS: Insulin Glarg,Human.Rec.Analog 100 Unit/ML 10 ML Vial SUBCUT SCH ×2 (11:10→20:30)
[2022-11-11] MEDS: Piperacillin/Tazobactam 3.375 GM in Sodium Chloride 0.9% 100 ML IV SCH ×3 (11:27→23:17)
[2022-11-11] MEDS: DULoxetine 30 MG Cap PO SCH (12:50)
[2022-11-11] MEDS ORDERED: Loratadine 10 MG Tab PO PRN (13:12)
[2022-11-11] MEDS ORDERED: Insulin Glarg,Human.Rec.Analog 100 Unit/ML 10 ML Vial SUBCUT ONE (13:15)
[2022-11-11] MEDS: amLODIPine 5 MG Tab PO SCH (13:42)
[2022-11-11] MEDS: Cholecalciferol (Vitamin D3) 25 MCG Tab PO SCH (13:42)
[2022-11-11] MEDS: Chlorthalidone 25 MG Tab PO SCH (13:42)
[2022-11-11] MEDS: Insulin Lispro 100 Units/ML 3 ML Vial SUBCUT SCH ×2 (14:10→16:56)
[2022-11-11] MEDS: oxyCODONE 5 MG Tab PO PRN ×2 (15:07→22:23)
[2022-11-11] MEDS ORDERED: Insulin Lispro 100 Units/ML 3 ML Vial SUBCUT SCH (17:00)
[2022-11-11] MEDS: Rosuvastatin 10 MG Tab PO SCH (20:29)
[2022-11-11] MEDS: metFORMIN 500 MG Tab PO SCH (20:29)
[2022-11-11] MEDS: Acetaminophen 325 MG Tab PO PRN (22:24)
[2022-11-12] MEDS: Piperacillin/Tazobactam 3.375 GM in Sodium Chloride 0.9% 100 ML IV SCH ×4 (05:58→23:36)
[2022-11-12 06:16] LABS: BASOPHILS PERCENT AUTO 0.2 % (0.0-1.0); EOSINOPHILS PERCENT AUTO 1.2 % (1.0-3.0); HEMATOCRIT 32.7 % (37.0-47.0); HEMOGLOBIN 11.1 g/dL (12.0-16.0); LYMPHOCYTES PERCENT AUTO 14.8 % (20.5-50.1); MEAN CORPUSCULAR HEMOGLOBIN 31.1 pg (27.0-34.0); MEAN CORPUSCULAR HGB CONC 33.9 g/dL (33.0-35.0); MEAN CORPUSCULAR VOLUME 91.6 fL (80-100); NEUTROPHILS PERCENT AUTO 76.8 % (42.2-75.2); PLATELET COUNT,PLT 345 10^3/uL (150-450); RED BLOOD CELL COUNT 3.57 10^6/uL (4.2-5.4); WHITE BLOOD CELL COUNT,WBC 12.1 10^3/uL (5.0-10.0)
[2022-11-12 06:32] LABS: ANION GAP 6.9 mEq/L (7-13); CALCIUM 8.1 mg/dL (8.5-10.1); CREATININE 0.84 mg/dL (0.55-1.02); EST CRCL DRUG DOSING (CG) 81.81 mL/min; POTASSIUM,K 4.9 mmol/L (3.5-5.1)
[2022-11-12] MEDS: Insulin Lispro 100 Units/ML 3 ML Vial SUBCUT SCH ×2 (08:00→12:46)
[2022-11-12] MEDS: metFORMIN 500 MG Tab PO SCH (09:53)
[2022-11-12] MEDS: Chlorthalidone 25 MG Tab PO SCH (09:53)
[2022-11-12] MEDS: amLODIPine 5 MG Tab PO SCH (09:54)
[2022-11-12] MEDS: Insulin Glarg,Human.Rec.Analog 100 Unit/ML 10 ML Vial SUBCUT SCH (09:54)
[2022-11-12] MEDS: Enoxaparin 40 MG/0.4 ML Syringe SUBCUT SCH (09:54)
[2022-11-12] MEDS: Cholecalciferol (Vitamin D3) 25 MCG Tab PO SCH (09:54)
[2022-11-12] MEDS: DULoxetine 30 MG Cap PO SCH (09:54)
[2022-11-12] MEDS: oxyCODONE 5 MG Tab PO PRN ×2 (12:40→20:36)
[2022-11-12] MEDS ORDERED: Sodium Chloride 0.9% 10 ML Syringe FLUSH PRN (13:40)
[2022-11-12] MEDS ORDERED: Glucagon,Human Recombinant 1 MG Vial IM PRN (15:08)
[2022-11-12] MEDS ORDERED: 50% Dextrose in Water 50 ML Syringe IVPUSH PRN (15:08)
[2022-11-12] MEDS: Rosuvastatin 10 MG Tab PO SCH (20:36)
[2022-11-13] MEDS: Piperacillin/Tazobactam 3.375 GM in Sodium Chloride 0.9% 100 ML IV SCH ×2 (05:49→11:36)
[2022-11-13] MEDS: Insulin Lispro 100 Units/ML 3 ML Vial SUBCUT SCH ×2 (08:33→12:35)
[2022-11-13] MEDS: Chlorthalidone 25 MG Tab PO SCH (08:33)
[2022-11-13] MEDS: Cholecalciferol (Vitamin D3) 25 MCG Tab PO SCH (08:33)
[2022-11-13] MEDS: amLODIPine 5 MG Tab PO SCH (08:33)
[2022-11-13] MEDS: DULoxetine 30 MG Cap PO SCH (08:33)
[2022-11-13] MEDS: Enoxaparin 40 MG/0.4 ML Syringe SUBCUT SCH (08:34)
[2022-11-13] MEDS ORDERED: Insulin Glarg,Human.Rec.Analog 100 Unit/ML 10 ML Vial SUBCUT SCH (09:00)
[2022-11-13] MEDS: Acetaminophen 325 MG Tab PO PRN (11:00)
[2022-11-13 11:50] VITALS: BP 124/87; PULSE 94
[2022-11-13] MEDS: oxyCODONE 5 MG Tab PO PRN (12:40)
== END 2022-11-13 10:30 | disposition home or self-care (01) | DRG 872 ==
LOC: DL.ED 03:03 → DL.MS 04:32 → DL.ED 04:47 → UNDOADMIN 04:50 → DL.MS 04:50
PROVIDERS: ADMIT Hospitalist; ATTEND Hospitalist
DX: A41.9 Sepsis, unspecified organism (principal); E87.1 Hypo-osmolality and hyponatremia; E78.5 Hyperlipidemia, unspecified; I11.0 Hypertensive heart disease with heart failure; I50.9 Heart failure, unspecified; F15.10 Other stimulant abuse, uncomplicated; E11.40 Type 2 diabetes mellitus with diabetic neuropathy, unspecified; F12.10 Cannabis abuse, uncomplicated; E11.65 Type 2 diabetes mellitus with hyperglycemia; E11.21 Type 2 diabetes mellitus with diabetic nephropathy; F32.A Depression, unspecified; F41.9 Anxiety disorder, unspecified; W20.8XXA Other cause of strike by thrown, projected or falling object, initial encounter; E86.0 Dehydration; S81.801A Unspecified open wound, right lower leg, initial encounter; Z90.49 Acquired absence of other specified parts of digestive tract; Z98.890 Other specified postprocedural states; Z79.4 Long term (current) use of insulin; Z79.84 Long term (current) use of oral hypoglycemic drugs; Z79.899 Other long term (current) drug therapy; Z97.3 Presence of spectacles and contact lenses; Z86.16 Personal history of COVID-19; Z56.0 Unemployment, unspecified
CPT/HCPCS: 36415; 73590; 80053; 80305; 80307; 81001; 82009; 82947; 83605; 84703; 85025; 86140; 87040 ×2; 96365; 96366; 96368; 96372; 96375; 99284; J1650; J1815; J2405 ×2; J2543; J3490; J7120; 80048; 80202; 99223; 99233; 99239; 99285; A9270-GY; J3370; J7050

== ENCOUNTER 2022-11-14 22:34 | Inpatient (IN) | payer MEDICAID ==
[2022-11-14] MEDS ORDERED: Sodium Chloride 0.9% 1,000 ML IV ONE ×2 (22:51→23:12)
[2022-11-14] MEDS ORDERED: Insulin NPH HUM/REG Insulin HM 100 UNIT/ML 3 ML Vial SQ ONE (22:59)
[2022-11-14] MEDS ORDERED: Glucagon,Human Recombinant 1 MG Vial IM PRN (22:59)
[2022-11-14] MEDS ORDERED: 50% Dextrose in Water 50 ML Syringe IVPUSH PRN (22:59)
[2022-11-14 23:07] LABS: BASOPHILS PERCENT AUTO 0.3 % (0.0-1.0); EOSINOPHILS PERCENT AUTO 0.6 % (1.0-3.0); HEMATOCRIT 28.5 % (37.0-47.0); HEMOGLOBIN 9.3 g/dL (12.0-16.0); LYMPHOCYTES PERCENT AUTO 12.5 % (20.5-50.1); MEAN CORPUSCULAR HEMOGLOBIN 30.1 pg (27.0-34.0); MEAN CORPUSCULAR HGB CONC 32.6 g/dL (33.0-35.0); MEAN CORPUSCULAR VOLUME 92.2 fL (80-100); MONOCYTES PERCENT AUTO 5.6 % (2-8); PLATELET COUNT,PLT 392 10^3/uL (150-450); RED BLOOD CELL COUNT 3.09 10^6/uL (4.2-5.4); WHITE BLOOD CELL COUNT,WBC 11.6 10^3/uL (5.0-10.0)
[2022-11-14 23:19] LABS: APPEARANCE,URINE CLEAR (CLEAR); BILIRUBIN,URINE NEGATIVE (NEGATIVE); COLOR,URINE YELLOW (YELLOW); GLUCOSE,URINE 500 (NEGATIVE); KETONES,URINE NEGATIVE (NEGATIVE); LEUKOCYTE ESTERASE,URINE NEGATIVE (NEGATIVE); NITRITE,URINE NEGATIVE (NEGATIVE); OCCULT BLOOD,URINE TRACE-INTACT (NEGATIVE); PH,URINE 6.5 (5.0-9.0); PROTEIN,URINE >=300 (NEGATIVE); UROBILINOGEN,URINE 0.2 mg/dL (0.2-1.0)
[2022-11-14 23:27] LABS: BACTERIA,URINE FEW /HPF (0-FEW/HPF); EPITHELIAL CELLS,URINE FEW /HPF (NOT SEEN); WBC,URINE 0-5 /HPF (0-5/HPF)
[2022-11-14 23:27] LABS: ALBUMIN 0.9 g/dL (3.4-5.0); ANION GAP 14.7 mEq/L (7-13); BILIRUBIN TOTAL 0.1 mg/dL (0.2-1.0); BUN/CREATININE RATIO 28.6 (No establ ref range); CALCIUM 8.3 mg/dL (8.5-10.1); CREATININE 0.91 mg/dL (0.55-1.02); EST CRCL DRUG DOSING (CG) 76.9 mL/min; POTASSIUM,K 4.7 mmol/L (3.5-5.1); PROTEIN TOTAL,TP 5.6 g/dL (6.4-8.2)
[2022-11-14 23:41] LABS: A/G RATIO 0.19
[2022-11-15] MEDS ORDERED: Ondansetron 4 MG/2 ML SDV IVPUSH PRN (00:04)
[2022-11-15] MEDS ORDERED: Ondansetron 4 MG Tab.DIS PO PRN (00:04)
[2022-11-15] MEDS ORDERED: Acetaminophen 325 MG Tab PO PRN (00:04)
[2022-11-15] MEDS ORDERED: 50% Dextrose in Water 50 ML Syringe IVPUSH PRN ×2 (00:19→08:06)
[2022-11-15] MEDS ORDERED: Glucagon,Human Recombinant 1 MG Vial IM PRN ×2 (00:19→08:06)
[2022-11-15] MEDS: Heparin Sodium 5,000 Units/ML Vial SUBCUT SCH ×2 (01:32→12:19)
[2022-11-15] MEDS: Sodium Chloride 0.9% 1,000 ML IV SCH ×2 (01:32→05:30)
[2022-11-15 06:10] LABS: BASOPHILS PERCENT AUTO 0.3 % (0.0-1.0); EOSINOPHILS PERCENT AUTO 1.1 % (1.0-3.0); HEMATOCRIT 27.9 % (37.0-47.0); HEMOGLOBIN 9.2 g/dL (12.0-16.0); MEAN CORPUSCULAR VOLUME 90.9 fL (80-100); MONOCYTES PERCENT AUTO 7.8 % (2-8); NEUTROPHILS PERCENT AUTO 72.8 % (42.2-75.2); PLATELET COUNT,PLT 386 10^3/uL (150-450); RED BLOOD CELL COUNT 3.07 10^6/uL (4.2-5.4); WHITE BLOOD CELL COUNT,WBC 10.8 10^3/uL (5.0-10.0)
[2022-11-15] MEDS: Insulin Glarg,Human.Rec.Analog 100 Unit/ML 10 ML Vial SUBCUT SCH ×3 (08:45→22:15)
[2022-11-15] MEDS: Insulin Lispro 100 Units/ML 3 ML Vial SUBCUT SCH ×4 (08:49→17:51)
[2022-11-15] MEDS: Piperacillin/Tazobactam 3.375 GM in Sodium Chloride 0.9% 100 ML IV SCH ×3 (08:51→17:56)
[2022-11-15] MEDS: oxyCODONE 5 MG Tab PO PRN ×2 (10:39→18:23)
[2022-11-15] MEDS ORDERED: hydrALAZINE 20 MG/ML SDV IVPUSH PRN (11:47)
[2022-11-15] MEDS ORDERED: Metoprolol Tartrate 5 MG/5 ML SDV IVPUSH PRN (11:47)
[2022-11-15] MEDS ORDERED: cloNIDine 0.1 MG Tab PO ONE (11:57)
[2022-11-15] MEDS ORDERED: Chlorthalidone 25 MG Tab PO ONE (11:58)
[2022-11-15] MEDS ORDERED: atorvaSTATin 20 MG Tab PO SCH (21:00)
[2022-11-15] MEDS ORDERED: Multivitamin Tab PO SCH (21:00)
[2022-11-16] MEDS: Piperacillin/Tazobactam 3.375 GM in Sodium Chloride 0.9% 100 ML IV SCH ×2 (00:11→05:19)
[2022-11-16] MEDS: Heparin Sodium 5,000 Units/ML Vial SUBCUT SCH (00:21)
[2022-11-16] MEDS: oxyCODONE 5 MG Tab PO PRN ×2 (05:17→10:49)
[2022-11-16] MEDS ORDERED: Sodium Chloride 0.9% 10 ML Syringe FLUSH PRN (06:04)
[2022-11-16] MEDS: Insulin Lispro 100 Units/ML 3 ML Vial SUBCUT SCH ×2 (08:43→11:00)
[2022-11-16] MEDS: Insulin Glarg,Human.Rec.Analog 100 Unit/ML 10 ML Vial SUBCUT SCH (08:58)
[2022-11-16] MEDS ORDERED: DULoxetine 30 MG Cap PO SCH (09:00)
[2022-11-16] MEDS ORDERED: Chlorthalidone 25 MG Tab PO SCH (09:00)
[2022-11-16] MEDS ORDERED: amLODIPine 5 MG Tab PO SCH (09:00)
[2022-11-16] MEDS ORDERED: Potassium Chloride 10 MEQ Tab.ER PO SCH (09:00)
[2022-11-16] MEDS ORDERED: Cholecalciferol (Vitamin D3) 25 MCG Tab PO SCH (09:00)
[2022-11-16] MEDS ORDERED: Lisinopril 20 MG Tab PO SCH (09:00)
[2022-11-16 11:47] VITALS: BP 153/99; PULSE 106
== END 2022-11-16 11:50 | disposition home or self-care (01) | DRG 638 ==
LOC: DL.ED 22:34 → DL.MS 11-15 00:04 → UNDOADMIN 11-15 00:04
PROVIDERS: ADMIT Hospitalist; ATTEND Hospitalist
DX: E10.10 Type 1 diabetes mellitus with ketoacidosis without coma (principal); E44.0 Moderate protein-calorie malnutrition; E87.1 Hypo-osmolality and hyponatremia; D50.9 Iron deficiency anemia, unspecified; E83.52 Hypercalcemia; E10.65 Type 1 diabetes mellitus with hyperglycemia; E78.5 Hyperlipidemia, unspecified; D63.8 Anemia in other chronic diseases classified elsewhere; F41.9 Anxiety disorder, unspecified; E10.622 Type 1 diabetes mellitus with other skin ulcer; E10.21 Type 1 diabetes mellitus with diabetic nephropathy; E10.42 Type 1 diabetes mellitus with diabetic polyneuropathy; F32.A Depression, unspecified; I10 Essential (primary) hypertension; Z79.4 Long term (current) use of insulin; Z79.899 Other long term (current) drug therapy; Z90.49 Acquired absence of other specified parts of digestive tract; Z98.890 Other specified postprocedural states; Z91.199 Patient's noncompliance with other medical treatment and regimen due to unspecified reason; Z68.22 Body mass index [BMI] 22.0-22.9, adult; Z86.16 Personal history of COVID-19
CPT/HCPCS: 36415; 80053; 81001; 82009; 82947; 85025; 96360; 99285; J1815; J7030; 93010; 99222; 99238; A9270-GY; J1644; J2543; J3370; J3490; J7050

== ENCOUNTER 2022-11-25 19:47 | Emergency (ER) | payer MEDICAID ==
[2022-11-25 20:07] VITALS: BP 131/95; PULSE 105
[2022-11-25] MEDS ORDERED: Sodium Chloride 0.9% 10 ML Syringe FLUSH PRN (20:07)
[2022-11-25 20:51] LABS: BASOPHILS PERCENT AUTO 0.3 % (0.0-1.0); EOSINOPHILS PERCENT AUTO 0.4 % (1.0-3.0); HEMATOCRIT 32.3 % (37.0-47.0); HEMOGLOBIN 10.5 g/dL (12.0-16.0); LYMPHOCYTES PERCENT AUTO 18.7 % (20.5-50.1); MEAN CORPUSCULAR HEMOGLOBIN 29.1 pg (27.0-34.0); MEAN CORPUSCULAR HGB CONC 32.5 g/dL (33.0-35.0); MEAN CORPUSCULAR VOLUME 89.5 fL (80-100); MONOCYTES PERCENT AUTO 5.9 % (2-8); NEUTROPHILS PERCENT AUTO 74.7 % (42.2-75.2); PLATELET COUNT,PLT 597 10^3/uL (150-450); RED BLOOD CELL COUNT 3.61 10^6/uL (4.2-5.4); WHITE BLOOD CELL COUNT,WBC 7.4 10^3/uL (5.0-10.0)
[2022-11-25 21:23] LABS: APPEARANCE,URINE CLEAR (CLEAR); BILIRUBIN,URINE NEGATIVE (NEGATIVE); COLOR,URINE YELLOW (YELLOW); GLUCOSE,URINE 500 (NEGATIVE); KETONES,URINE NEGATIVE (NEGATIVE); LEUKOCYTE ESTERASE,URINE NEGATIVE (NEGATIVE); NITRITE,URINE NEGATIVE (NEGATIVE); OCCULT BLOOD,URINE TRACE-INTACT (NEGATIVE); PROTEIN,URINE >=300 (NEGATIVE); UROBILINOGEN,URINE 0.2 mg/dL (0.2-1.0)
[2022-11-25 21:23] LABS: INR 0.8 (0.9-1.2); PROTHROMBIN TIME 8.8 SEC (9.0-12.0); PTT,PARTIAL THROMBOPLSTIN TIME 28.8 SEC (22.0-34.0)
[2022-11-25 21:28] LABS: ALANINE AMINOTRANSFERASE,ALT 79 U/L (14-59); ALBUMIN 1.6 g/dL (3.4-5.0); ALKALINE PHOSPHATASE 961 U/L (46-116); AMYLASE 37 U/L (25-115); ANION GAP 13.3 mEq/L (7-13); ASPARTATE AMNIOTRANSFERASE,AST 75 U/L (15-37); BILIRUBIN TOTAL 0.2 mg/dL (0.2-1.0); BLOOD UREA NITROGEN,BUN 33 mg/dL (7-18); BUN/CREATININE RATIO 37.1 (No establ ref range); C-REACTIVE PROTEIN 0.61 ng/dL (<=0.30); CARBON DIOXIDE,CO2 27 mmol/L (21-32); CHLORIDE,CL 98 mmol/L (98-107); CREATININE 0.89 mg/dL (0.55-1.02); EST CRCL DRUG DOSING (CG) 75.46 mL/min; GLUCOSE RANDOM 246 mg/dL (70-99); LACTIC ACID 2.6 mmol/L (0.4-2.0); LIPASE 64 U/L (16-77); MAGNESIUM 1.9 mg/dL (1.8-2.4); POTASSIUM,K 3.3 mmol/L (3.5-5.1); PROTEIN TOTAL,TP 6.8 g/dL (6.4-8.2); SODIUM,NA 135 mmol/L (136-145)
[2022-11-25 21:29] LABS: A/G RATIO 0.31; ESTIMATED GFR 86 mL/min (>=60)
[2022-11-25 21:32] LABS: ETHANOL BLOOD MEDICAL < 3 mg/dL (0)
[2022-11-25 21:34] LABS: AMPHETAMINES,URINE NEGATIVE (NEGATIVE); BARBITURATES,URINE NEGATIVE (NEGATIVE); BENZODIAZEPINE,URINE NEGATIVE (NEGATIVE); MDMA (ECSTASY), URINE NEGATIVE (NEGATIVE); METHADONE,URINE NEGATIVE (NEGATIVE); METHAMPHETAMINES,URINE NEGATIVE (NEGATIVE); OPIATES,URINE NEGATIVE (NEGATIVE); OXYCODONE,URINE NEGATIVE (NEGATIVE); PHENCYCLIDINE,URINE NEGATIVE (NEGATIVE); TCA,URINE NEGATIVE (NEGATIVE)
[2022-11-25 21:42] LABS: AMORPHOUS SEDIMENT,URINE FEW /HPF (NOT SEEN); BACTERIA,URINE MANY /HPF (0-FEW/HPF); EPITHELIAL CELLS,URINE MODERATE /HPF (NOT SEEN)
[2022-11-25] MEDS ORDERED: Sodium Chloride 0.9% 1,000 ML IV ONE (21:46)
[2022-11-25] MEDS ORDERED: Ketorolac 30 MG/ML SDV IVPUSH ONE (21:46)
[2022-11-25 22:34] LABS: HEMOGLOBIN A1C > 14.0 % (<5.7)
[2022-11-25] MEDS ORDERED: Potassium Chloride 10 MEQ Tab.ER PO ONE (22:34)
== END 2022-11-25 22:41 | disposition home or self-care (01) ==
LOC: DL.ED 19:47
DX: I10 Essential (primary) hypertension (principal); E87.6 Hypokalemia; R74.02 Elevation of levels of lactic acid dehydrogenase [LDH]; R00.0 Tachycardia, unspecified; E78.00 Pure hypercholesterolemia, unspecified; E10.21 Type 1 diabetes mellitus with diabetic nephropathy; E10.40 Type 1 diabetes mellitus with diabetic neuropathy, unspecified; Z86.16 Personal history of COVID-19; Z79.899 Other long term (current) drug therapy
CPT/HCPCS: 36415; 80053; 80305-QW; 80307; 81001; 81025; 82009; 82150; 82947; 83036; 83605; 83690; 83735; 84145; 85025; 85610; 85730; 86140; 86788; 93005; 93010; 96361; 96374; 99284; 99284-25; A9270-GY; J1885; J3490; J7030

== ENCOUNTER 2023-01-03 10:04 | Observation (INO) | payer MEDICAID ==
[2023-01-03] MEDS ORDERED: Sodium Chloride 0.9% 10 ML Syringe FLUSH PRN (10:06)
[2023-01-03] MEDS ORDERED: Ondansetron 4 MG/2 ML SDV IV ONE (10:07)
[2023-01-03] MEDS ORDERED: Sodium Chloride 0.9% 1,000 ML IV ONE ×2 (10:07→11:04)
[2023-01-03] MEDS ORDERED: 50% Dextrose in Water 50 ML Syringe IVPUSH PRN ×2 (10:08→12:01)
[2023-01-03] MEDS ORDERED: Glucagon,Human Recombinant 1 MG Vial IM PRN ×2 (10:08→12:01)
[2023-01-03 10:24] LABS: O2 DELIVERY DEVICE ROOM AIR
[2023-01-03 10:30] LABS: BASOPHILS PERCENT AUTO 0.4 % (0.0-1.0); EOSINOPHILS PERCENT AUTO 0.7 % (1.0-3.0); HEMOGLOBIN 12.4 g/dL (12.0-16.0); LYMPHOCYTES PERCENT AUTO 21.7 % (20.5-50.1); MEAN CORPUSCULAR HEMOGLOBIN 28.8 pg (27.0-34.0); MEAN CORPUSCULAR HGB CONC 33.5 g/dL (33.0-35.0); MEAN CORPUSCULAR VOLUME 85.8 fL (80-100); MONOCYTES PERCENT AUTO 4.6 % (2-8); NEUTROPHILS PERCENT AUTO 72.6 % (42.2-75.2); PLATELET COUNT,PLT 289 10^3/uL (150-450); RED BLOOD CELL COUNT 4.31 10^6/uL (4.2-5.4); WHITE BLOOD CELL COUNT,WBC 7.7 10^3/uL (5.0-10.0)
[2023-01-03 10:39] LABS: BICARBONATE,VENOUS 31 mmol/l (19-25); O2 SATURATION VENOUS 73.7 % (60-80); PCO2 VENOUS 53 mmHg (41-51); PH,VENOUS 7.38 (7.31-7.41); PO2 VENOUS 47 mmHg (35-42)
[2023-01-03 10:49] LABS: LACTIC ACID 0.6 mmol/L (0.4-2.0)
[2023-01-03 10:54] LABS: APPEARANCE,URINE CLEAR (CLEAR); BILIRUBIN,URINE NEGATIVE (NEGATIVE); COLOR,URINE YELLOW (YELLOW); GLUCOSE,URINE 500 (NEGATIVE); KETONES,URINE NEGATIVE (NEGATIVE); LEUKOCYTE ESTERASE,URINE NEGATIVE (NEGATIVE); NITRITE,URINE NEGATIVE (NEGATIVE); OCCULT BLOOD,URINE TRACE-INTACT (NEGATIVE); PROTEIN,URINE >=300 (NEGATIVE); UROBILINOGEN,URINE 0.2 mg/dL (0.2-1.0)
[2023-01-03 10:56] LABS: ALANINE AMINOTRANSFERASE,ALT 44 U/L (14-59); ALBUMIN 1.4 g/dL (3.4-5.0); ALKALINE PHOSPHATASE 394 U/L (46-116); ANION GAP 6.4 mEq/L (7-13); ASPARTATE AMNIOTRANSFERASE,AST 38 U/L (15-37); BILIRUBIN TOTAL 0.2 mg/dL (0.2-1.0); BLOOD UREA NITROGEN,BUN 20 mg/dL (7-18); BUN/CREATININE RATIO 21.7 (No establ ref range); CALCIUM 8.1 mg/dL (8.5-10.1); CARBON DIOXIDE,CO2 33 mmol/L (21-32); CHLORIDE,CL 88 mmol/L (98-107); CREATININE 0.92 mg/dL (0.55-1.02); EST CRCL DRUG DOSING (CG) 66.86 mL/min; LIPASE 79 U/L (16-77); POTASSIUM,K 4.4 mmol/L (3.5-5.1); SODIUM,NA 123 mmol/L (136-145)
[2023-01-03 11:01] LABS: HEMOGLOBIN A1C > 14.0 % (<5.7)
[2023-01-03 11:04] LABS: ESTIMATED GFR 83 mL/min (>=60); ETHANOL BLOOD MEDICAL < 3 mg/dL (0); GLUCOSE RANDOM 735 mg/dL (70-99)
[2023-01-03 11:05] LABS: AMPHETAMINES,URINE NEGATIVE (NEGATIVE); BARBITURATES,URINE NEGATIVE (NEGATIVE); BENZODIAZEPINE,URINE NEGATIVE (NEGATIVE); MDMA (ECSTASY), URINE NEGATIVE (NEGATIVE); METHADONE,URINE NEGATIVE (NEGATIVE); METHAMPHETAMINES,URINE NEGATIVE (NEGATIVE); OPIATES,URINE NEGATIVE (NEGATIVE); OXYCODONE,URINE NEGATIVE (NEGATIVE); PHENCYCLIDINE,URINE NEGATIVE (NEGATIVE); TCA,URINE NEGATIVE (NEGATIVE)
[2023-01-03 11:07] LABS: AMORPHOUS SEDIMENT,URINE FEW /HPF (NOT SEEN); BACTERIA,URINE RARE /HPF (0-FEW/HPF); EPITHELIAL CELLS,URINE FEW /HPF (NOT SEEN); MUCUS,URINE FEW /LPF (NOT SEEN); WBC,URINE 0-5 /HPF (0-5/HPF)
[2023-01-03 11:10] LABS: KETONES,BLOOD SMALL-20 mg/dL
[2023-01-03 11:33] LABS: CORONAVIRUS COVID-19 NAA NEGATIVE (NEGATIVE); INFLUENZA A NAA NEGATIVE (NEGATIVE); INFLUENZA B NAA NEGATIVE (NEGATIVE); RESPIRATORY SYNCYTIAL VIR NAA NEGATIVE (NEGATIVE)
[2023-01-03] MEDS ORDERED: Ondansetron 4 MG Tab.DIS PO PRN (11:52)
[2023-01-03] MEDS ORDERED: Docusate Sodium 100 MG Cap PO PRN (11:52)
[2023-01-03] MEDS ORDERED: Acetaminophen 325 MG Tab PO PRN (11:52)
[2023-01-03] MEDS: Sodium Chloride 0.9% 1,000 ML IV SCH ×2 (13:03→22:50)
[2023-01-03] MEDS: Lisinopril 20 MG Tab PO SCH (13:04)
[2023-01-03] MEDS: Chlorthalidone 25 MG Tab PO SCH (13:04)
[2023-01-03] MEDS: amLODIPine 5 MG Tab PO SCH (13:04)
[2023-01-03] MEDS ORDERED: Insulin Glarg,Human.Rec.Analog 100 Unit/ML 10 ML Vial SUBCUT SCH ×2 (16:00→21:00)
[2023-01-03] MEDS: Insulin Lispro 100 Units/ML 3 ML Vial SUBCUT SCH ×3 (17:12→21:02)
[2023-01-03] MEDS ORDERED: Multivitamin Tab PO SCH (21:00)
[2023-01-04] MEDS ORDERED: Pantoprazole 40 MG Tab.CR PO SCH (06:00)
[2023-01-04 06:20] LABS: BASOPHILS PERCENT AUTO 0.3 % (0.0-1.0); EOSINOPHILS PERCENT AUTO 1.4 % (1.0-3.0); HEMATOCRIT 34.4 % (37.0-47.0); HEMOGLOBIN 11.7 g/dL (12.0-16.0); MEAN CORPUSCULAR HEMOGLOBIN 28.6 pg (27.0-34.0); MEAN CORPUSCULAR VOLUME 84.1 fL (80-100); MONOCYTES PERCENT AUTO 4.6 % (2-8); NEUTROPHILS PERCENT AUTO 62.7 % (42.2-75.2); PLATELET COUNT,PLT 275 10^3/uL (150-450); RED BLOOD CELL COUNT 4.09 10^6/uL (4.2-5.4); WHITE BLOOD CELL COUNT,WBC 7.7 10^3/uL (5.0-10.0)
[2023-01-04 06:36] LABS: ANION GAP 7.8 mEq/L (7-13); CALCIUM 7.5 mg/dL (8.5-10.1); CREATININE 0.76 mg/dL (0.55-1.02); EST CRCL DRUG DOSING (CG) 80.94 mL/min; POTASSIUM,K 3.8 mmol/L (3.5-5.1)
[2023-01-04] MEDS: Enoxaparin 40 MG/0.4 ML Syringe SUBCUT SCH ×2 (08:21→08:26)
[2023-01-04] MEDS: Chlorthalidone 25 MG Tab PO SCH (08:21)
[2023-01-04] MEDS: amLODIPine 5 MG Tab PO SCH (08:23)
[2023-01-04] MEDS: Insulin Lispro 100 Units/ML 3 ML Vial SUBCUT SCH ×2 (08:23→08:24)
[2023-01-04] MEDS: Lisinopril 20 MG Tab PO SCH (08:23)
[2023-01-04 08:25] VITALS: BP 115/90
[2023-01-04 08:32] VITALS: PULSE 89
[2023-01-04] MEDS ORDERED: Pravastatin 20 MG Tab PO SCH (09:00)
[2023-01-04] MEDS ORDERED: FLU (Fluarix Quad) QS2023-24(6MOS UP)/PF 60 MCG/0.5 ML Syringe IM ONE (11:00)
== END 2023-01-04 11:25 | disposition home or self-care (01) ==
LOC: DL.ED 10:04 → DL.MS 11:20
PROVIDERS: ADMIT Internal Medicine; ATTEND Internal Medicine
DX: E11.65 Type 2 diabetes mellitus with hyperglycemia (principal); E87.1 Hypo-osmolality and hyponatremia; E87.8 Other disorders of electrolyte and fluid balance, not elsewhere classified; L97.819 Non-pressure chronic ulcer of other part of right lower leg with unspecified severity; E11.21 Type 2 diabetes mellitus with diabetic nephropathy; B19.20 Unspecified viral hepatitis C without hepatic coma; I10 Essential (primary) hypertension; E78.5 Hyperlipidemia, unspecified; E11.40 Type 2 diabetes mellitus with diabetic neuropathy, unspecified; F41.9 Anxiety disorder, unspecified; F32.A Depression, unspecified; Z20.822 Contact with and (suspected) exposure to COVID-19; Z79.4 Long term (current) use of insulin; Z79.84 Long term (current) use of oral hypoglycemic drugs; Z79.899 Other long term (current) drug therapy; Z23 Encounter for immunization
CPT/HCPCS: 0241U; 36415; 71045; 80048; 80053; 80305-QW; 80307; 81001; 81025; 82009; 82803; 82947; 83036; 83605; 83690; 83735; 84145; 84484; 85025; 87040; 90686; 93005; 93010; 96361; 96374; 99284; 99285-25; A9270-GY; G0008; G0378; J1650; J1815-GY; J2405; J3490; J7030

== ENCOUNTER 2023-01-18 13:25 | Emergency (ER) | payer MEDICAID ==
[2023-01-18] MEDS ORDERED: Sodium Chloride 0.9% 10 ML Syringe FLUSH PRN (13:40)
[2023-01-18] MEDS ORDERED: Sodium Chloride 0.9% 1,000 ML IV ONE ×2 (13:44→14:25)
[2023-01-18 13:59] LABS: BASOPHILS PERCENT AUTO 0.3 % (0.0-1.0); HEMATOCRIT 29.9 % (37.0-47.0); HEMOGLOBIN 10.2 g/dL (12.0-16.0); LYMPHOCYTES PERCENT AUTO 8.2 % (20.5-50.1); MEAN CORPUSCULAR HEMOGLOBIN 28.3 pg (27.0-34.0); MEAN CORPUSCULAR HGB CONC 34.1 g/dL (33.0-35.0); MEAN CORPUSCULAR VOLUME 82.8 fL (80-100); MONOCYTES PERCENT AUTO 2.1 % (2-8); NEUTROPHILS PERCENT AUTO 89.4 % (42.2-75.2); PLATELET COUNT,PLT 240 10^3/uL (150-450); RED BLOOD CELL COUNT 3.61 10^6/uL (4.2-5.4); WHITE BLOOD CELL COUNT,WBC 7.9 10^3/uL (5.0-10.0)
[2023-01-18 14:16] LABS: ALANINE AMINOTRANSFERASE,ALT 61 U/L (14-59); ALBUMIN 1.2 g/dL (3.4-5.0); ALKALINE PHOSPHATASE 177 U/L (46-116); ANION GAP 12.9 mEq/L (7-13); ASPARTATE AMNIOTRANSFERASE,AST 63 U/L (15-37); BILIRUBIN TOTAL 0.2 mg/dL (0.2-1.0); BLOOD UREA NITROGEN,BUN 37 mg/dL (7-18); BUN/CREATININE RATIO 32.2 (No establ ref range); C-REACTIVE PROTEIN 20.26 ng/dL (<=0.50); CARBON DIOXIDE,CO2 25 mmol/L (21-32); CHLORIDE,CL 90 mmol/L (98-107); CREATININE 1.15 mg/dL (0.55-1.02); GLUCOSE RANDOM 335 mg/dL (70-99); MAGNESIUM 1.4 mg/dL (1.8-2.4); POTASSIUM,K 2.9 mmol/L (3.5-5.1); SODIUM,NA 125 mmol/L (136-145)
[2023-01-18 14:17] LABS: A/G RATIO 0.25; ESTIMATED GFR 63 mL/min (>=60)
[2023-01-18 14:18] LABS: ETHANOL BLOOD MEDICAL < 3 mg/dL (0)
[2023-01-18 14:19] LABS: LACTIC ACID 1.4 mmol/L (0.4-2.0)
[2023-01-18] MEDS ORDERED: Piperacillin/Tazobactam 3.375 GM in Sodium Chloride 0.9% 100 ML IV ONE (14:24)
[2023-01-18] MEDS ORDERED: Potassium Chloride 10 MEQ Tab.ER PO ONE (14:25)
[2023-01-18] MEDS ORDERED: Magnesium Sulfate/Water 2 GM in Premix Bag 1 BAG IV ONE (14:27)
[2023-01-18] MEDS ORDERED: Sodium Chloride 0.9% 100 ML ONE (14:35)
[2023-01-18] MEDS ORDERED: Ketorolac 30 MG/ML SDV IVPUSH ONE (14:51)
[2023-01-18] MEDS ORDERED: Acetaminophen 500 MG Tab PO ONE (14:51)
[2023-01-18 15:10] VITALS: BP 151/109; PULSE 126
[2023-01-18 15:10] LABS: APPEARANCE,URINE CLEAR (CLEAR); BILIRUBIN,URINE NEGATIVE (NEGATIVE); COLOR,URINE YELLOW (YELLOW); GLUCOSE,URINE >=1000 (NEGATIVE); KETONES,URINE NEGATIVE (NEGATIVE); LEUKOCYTE ESTERASE,URINE NEGATIVE (NEGATIVE); NITRITE,URINE NEGATIVE (NEGATIVE); OCCULT BLOOD,URINE SMALL (NEGATIVE); PROTEIN,URINE >=300 (NEGATIVE); UROBILINOGEN,URINE 0.2 mg/dL (0.2-1.0)
[2023-01-18 15:14] LABS: AMPHETAMINES,URINE NEGATIVE (NEGATIVE); BARBITURATES,URINE NEGATIVE (NEGATIVE); BENZODIAZEPINE,URINE NEGATIVE (NEGATIVE); MDMA (ECSTASY), URINE NEGATIVE (NEGATIVE); METHADONE,URINE NEGATIVE (NEGATIVE); METHAMPHETAMINES,URINE POSITIVE (NEGATIVE); OPIATES,URINE NEGATIVE (NEGATIVE); OXYCODONE,URINE NEGATIVE (NEGATIVE); PHENCYCLIDINE,URINE NEGATIVE (NEGATIVE); TCA,URINE NEGATIVE (NEGATIVE)
[2023-01-18 15:24] LABS: AMORPHOUS SEDIMENT,URINE FEW /HPF (NOT SEEN); BACTERIA,URINE MANY /HPF (0-FEW/HPF); EPITHELIAL CELLS,URINE MODERATE /HPF (NOT SEEN); MUCUS,URINE FEW /LPF (NOT SEEN)
[2023-01-18 16:16] LABS: CORONAVIRUS COVID-19 NAA NEGATIVE (NEGATIVE); INFLUENZA A NAA NEGATIVE (NEGATIVE); INFLUENZA B NAA NEGATIVE (NEGATIVE)
== END 2023-01-18 16:55 ==
LOC: DL.ED 13:25
DX: M00.9 Pyogenic arthritis, unspecified (principal); I10 Essential (primary) hypertension; E78.00 Pure hypercholesterolemia, unspecified; E11.21 Type 2 diabetes mellitus with diabetic nephropathy; E11.40 Type 2 diabetes mellitus with diabetic neuropathy, unspecified; Z86.16 Personal history of COVID-19; Z79.84 Long term (current) use of oral hypoglycemic drugs; Z79.899 Other long term (current) drug therapy
CPT/HCPCS: 0240U; 36415; 51702; 73562-RT; 80053; 80305-QW; 80307; 81001; 83605; 83735; 84145; 85025; 86140; 87040; 87077; 96360; 96361; 96365; 96366; 96368; 96375; 99284; 99285-25; A9270-GY; J1885; J2543; J3370; J3475; J3490; J7030; J7050